=== PATIENT | male | born 1945 | race Caucasian/White ===

== ENCOUNTER 2017-01-13 16:55 | Inpatient (IN) | payer MEDICARE, MEDICAID ==
[~2017-01-13] VITALS: Ht 170.2 cm; Wt 65.8 kg
[~2017-01-13 16:55] MED LIST: AMBIEN5 MG ORAL; AMOXICILLIN125 MG ORAL; ATIVAN1 MG ORAL; B COMPLETE1 EAC1 ORAL; COLACE100 MG ORAL; COLACE250 MG ORAL; CRANBERRY TABL1 EACH PO; CYMBALTA30 MG ORAL; FOLIC ACID1 MG ORAL; HEPARIN SO5000 UNIT2 SUBQ; KEPPRA500 MG ORAL; LACTULOSE20 GM/301 ORAL; METHADONE HCL10 MG PO; MILK OF MA400 MG/51 ORAL; MIRALAX17 G2 ORAL; MOM30 ML ORAL; MULTI-VITAMIN1 EACH PO; MYLANTA30 M1 GT; MYLANTA30 M1 ORAL; NKM; NORCO 10-325 T1 EACH ORAL; NORCO 5-325 TA1 EACH ORAL; POLYSPORIN O1 APPLI1 TOPIC; PROTONIX40 MG ORAL; RANITIDINE HCL150 MG ORAL; RANITIDINE50 MG/2 ML PO; RESTORIL15 MG ORAL; TYLENOL325 MG ORAL; TYLENOL650 MG/20. ORAL; UNOBMED; ZOFRAN4 M1 ORAL; [UNRECOGNIZED DRUG - OTHER] PO
[2017-01-13 16:58] VITALS: BP 125/78
[2017-01-13 18:01] LABS: ALANINE AMINOTRANSFERASE 58 U/L (3-41); ALBUMIN/GLOBULIN RATIO 0.9 (1.0-2.7); ANION GAP 10 (5-15); ASPARTATE AMINO TRANSFERASE 56 U/L (5-40); CALCIUM 9.2 mg/dL (8.6-10.2); CARBON DIOXIDE 27 mEQ/L (20-30); CHLORIDE 104 mEQ/L (98-107); CREATININE 0.7 mg/dL (0.7-1.2); GLOMERULAR FILTRATION RATE > 60 mL/min (>60); HEMOLYSIS 8; LIPASE 56 U/L (< 60); SODIUM 141 mEQ/L (135-145); TOTAL PROTEIN 8.2 g/dL (6.6-8.7)
[2017-01-13 18:03] LABS: MEAN CORPUSCULAR HEMOGLOBIN 34.8 PG (27.0-31.0); MEAN CORPUSCULAR HGB CONC 35.9 G/DL (32.0-36.0); MEAN CORPUSCULAR VOLUME 97 FL (80-99); PLATELET COUNT 78 K/UL (150-450); RED BLOOD COUNT 3.86 M/UL (4.70-6.10); RED CELL DISTRIBUTION WIDTH 11.6 % (11.6-14.8); WHITE BLOOD COUNT 3.5 K/UL (4.8-10.8)
[2017-01-13] MEDS ORDERED: Zolpidem 5mg tab ORAL PRN (18:30)
[2017-01-13] MEDS ORDERED: Miralax 17gm pkt ORAL PRN (18:30)
[2017-01-13] MEDS ORDERED: Morphine Sulfate 2mg/ml Inj IVP PRN (18:30)
[2017-01-13] MEDS ORDERED: Mylanta II UD 30ml ORAL PRN (18:30)
[2017-01-13 20:01] LABS: BAND NEUTROPHILS % (MANUAL) 2 % (0-8); BASOPHILS % (MANUAL) 1 % (0-2); EOSINOPHILS % (MANUAL) 2 % (0-3); LYMPHOCYTES % (MANUAL) 39 % (20-45); NEUTROPHILS % (MANUAL) 49 % (45-75); TOTAL CELLS COUNTED 100
[2017-01-13 20:02] LABS: ANISOCYTOSIS 1+; PLATELET ESTIMATE DECREASED; PLATELET MORPHOLOGY NORMAL
[2017-01-13 20:42] VITALS: BP 137/88
[2017-01-13] MEDS: Lactulose 20gm/30ml UDC ORAL SCH (21:00)
[2017-01-13] MEDS: Heparin 5000 units/ml inj SUBQ SCH (21:00)
--- NOTE | 2017-01-13 21:01 | Emergency Room Report ---
History of Present Illness General Chief Complaint: General Complaint Source: Medical Record, PMD Present Illness HPI Patient presents emergency department today complaining of generalized weakness and altered mental status. Patient apparently presented to the emergency department today with confusion at the alf and progressive combativeness. No other complaints are noted. Symptoms noted to be severe.No other modifying factors. No other associated signs and symptoms. No other complaints were noted. Patient is a poor historian unable to provide much history most of this history was obtained from EMS and primary care physician. Allergies: Coded Allergies: No Known Allergies (Verified , 08/24/12) Patient History Past Medical History: CHF, seizures, other - Encephalopathy Past Surgical History: none Pertinent Family History: none Social History: Denies: alcohol use, drug use, smoking Reviewed Nursing Documentation: PMH: Agreed, PSxH: Agreed Nursing Documentation-PMH Past Medical History: No History, Except For Hx Cardiac Problems: Yes - CHF Hx Cancer: No - per [facility] records Hx Gastrointestinal Problems: No - CIRRHOSIS Hx Neurological Problems: Yes - Encephalopathy, convulsions Hx Seizures: Yes Review of Systems All Other Systems: negative except mentioned in HPI Physical Exam Vital Signs Date Time Temp Pulse Resp B/P Pulse Ox O2 Delivery O2 Flow Rate FiO2 01/13/17 16:48 97.3 82 20 116/78 98 Room Air Sp02 EP Interpretation: reviewed, normal General Appearance: alert, moderate distress Head: atraumatic Eyes: bilateral eye normal inspection ENT: normal ENT inspection, normal voice, moist mucus membranes Neck: normal inspection, full range of motion, supple, no bony tend Respiratory: normal inspection, lungs clear, normal breath sounds, no respiratory distress, no retraction, no wheezing Cardiovascular #1: regular rate, rhythm, no edema Gastrointestinal: normal inspection, normal bowel sounds, non tender, soft, no guarding, no hernia Genitourinary: no CVA tenderness Musculoskeletal: normal inspection, back normal, normal range of motion Neurologic: normal inspection, alert, responsive, speech normal Psychiatric: anxious Skin: normal inspection, normal color, no rash Medical Decision Making Diagnostic Impression: Primary Impression: Altered mental status ER Course Patient presents emergency department today with bizarre behavior altered mental status. Differential diagnoses include acute infectious process electrolyte abnormality aggressive behavior just to name a few.Given the severity of the patient's presentation I felt this is a highly complex patient. This patient required extensive workup. Patient laboratory workup was not impressive. However given patient's presentation I felt the patient require admission to the hospital. Case was discussed in detail with Dr. Saavedra who knows the patient patient will be admitted to his service for further treatment. Labs Test 01/13/17 17:26 White Blood Count 3.5 K/UL (4.8-10.8) Red Blood Count 3.86 M/UL (4.70-6.10) Hemoglobin 13.4 G/DL (14.2-18.0) Hematocrit 37.5 % (42.0-52.0) Mean Corpuscular Volume 97 FL (80-99) Mean Corpuscular Hemoglobin 34.8 PG (27.0-31.0) Mean Corpuscular Hemoglobin Concent 35.9 G/DL (32.0-36.0) Red Cell Distribution Width 11.6 % (11.6-14.8) Platelet Count 78 K/UL (150-450) Mean Platelet Volume 8.0 FL (6.5-10.1) Neutrophils (%) (Auto) % (45.0-75.0) Lymphocytes (%) (Auto) % (20.0-45.0) Monocytes (%) (Auto) % (1.0-10.0) Eosinophils (%) (Auto) % (0.0-3.0) Basophils (%) (Auto) % (0.0-2.0) Differential Total Cells Counted 100 Neutrophils % (Manual) 49 % (45-75) Lymphocytes % (Manual) 39 % (20-45) Monocytes % (Manual) 7 % (1-10) Eosinophils % (Manual) 2 % (0-3) Basophils % (Manual) 1 % (0-2) Band Neutrophils 2 % (0-8) Platelet Estimate Decreased Platelet Morphology Normal Anisocytosis 1+ Sodium Level 141 mEQ/L (135-145) Potassium Level 4.0 mEQ/L (3.4-4.9) Chloride Level 104 mEQ/L (98-107) Carbon Dioxide Level 27 mEQ/L (20-30) Anion Gap 10 (5-15) Blood Urea Nitrogen 21 mg/dL (7-23) Creatinine 0.7 mg/dL (0.7-1.2) Estimat Glomerular Filtration Rate > 60 mL/min (>60) Glucose Level 96 mg/dL (74-106) Calcium Level 9.2 mg/dL (8.6-10.2) Total Bilirubin 0.4 mg/dL (0.0-1.2) Aspartate Amino Transf (AST/SGOT) 56 U/L (5-40) Alanine Aminotransferase (ALT/SGPT) 58 U/L (3-41) Alkaline Phosphatase 68 U/L (40-129) Total Protein 8.2 g/dL (6.6-8.7) Albumin 3.9 g/dL (3.5-5.2) Globulin 4.3 g/dL Albumin/Globulin Ratio 0.9 (1.0-2.7) Lipase 56 U/L (< 60) Last Vital Signs Date Time Temp Pulse Resp B/P Pulse Ox O2 Delivery O2 Flow Rate FiO2 01/13/17 20:43 80 15 137/88 100 Room Air 01/13/17 20:42 97.8 Status: improved Disposition: ADMITTED INPATIENT Condition: Serious Referrals: JEFF SAAVEDRA (PCP) QUAN BERRY M.D. Jan 13, 2017 21:01
--- NOTE | 2017-01-13 22:15 | History and Physical ---
History of Present Illness General Date patient seen: Jan 13, 2017 Reason for Hospitalization: General Complaint Present Illness HPI 71 year old male with hx of Hepaitis C, cirrhosis, Dementia, psychosis, cachectic, prison resident, brought in by paramedics for CC of combative and agrresive, behavior. Pt is a poor historian and doesn't provide any history. Allergies: Coded Allergies: No Known Allergies (Verified , 08/24/12) Medication History Scheduled Cranberry Conc/C/Bacill Coag (Cranberry Tablet), 2 EACH PO DAILY, (Reported) Docusate Sodium (Docusate Sodium), 250 MG ORAL DAILY, (Reported) Duloxetine Hcl* (Cymbalta*), 30 MG ORAL DAILY, (Reported) Folic Acid* (Folic Acid*), 1 MG ORAL DAILY, (Reported) Heparin Sod (Porcine) (Heparin Sodium*), 5,000 UNITS SUBQ EVERY 12 HOURS, ( Reported) Lactulose (Lactulose*), 30 ML ORAL EVERY 12 HOURS, (Reported) Levetiracetam (Keppra), 500 MG ORAL EVERY 12 HOURS, (Reported) Multivitamin (Multi-Vitamin Daily), 1 EACH PO DAILY, (Reported) Ranitidine Hcl* (Ranitidine Hcl*), 150 MG PO DAILY, (Reported) Vitamin B Complex (B Complete), 100 MG ORAL DAILY, (Reported) Scheduled PRN Acetaminophen (Tylenol), 650 MG ORAL Q6H PRN for For Pain, (Reported) Al Hydroxide/mg Hydroxide (Mag-Al Liquid), 30 ML ORAL Q6HR PRN for Abdominal cramps, (Reported) Hydrocodone Bit/Acetaminophen 10-325* ([place] 10-325*), 1 TAB ORAL Q4H PRN for For Pain, (Reported) Magnesium Hydroxide (Milk of Magnesia), 30 ML ORAL HS PRN for Constipation, ( Reported) Methadone Hcl* (Methadone*), 10 MG PO EVERY 8 HOURS PRN for For Pain, (Reported) Ondansetron (Zofran), 4 MG ORAL Q6H PRN for Nausea & Vomiting, (Reported) Polyethylene Glycol 3350* (Miralax*), 17 GM ORAL QHS PRN for Constipation, ( Reported) Zolpidem Tartrate* (Ambien*), 5 MG ORAL BEDTIME PRN for Insomnia, (Reported) Patient History Healthcare decision maker Resuscitation status Advanced Directive on File Past Medical/Surgical History Past Medical/Surgical History: (1) Agitated (2) Elevated LFTs (3) Anemia Review of Systems All Other Systems: negative except mentioned in HPI Physical Exam General Appearance: cachetic Lines, tubes and drains: peripheral, PICC HEENT: normocephalic, atraumatic Neck: non-tender, normal alignment Respiratory/Chest: chest wall non-tender, lungs clear Cardiovascular/Chest: normal peripheral pulses, normal rate, regular rhythm Last 24 Hour Vital Signs Date Time Temp Pulse Resp B/P Pulse Ox O2 Delivery O2 Flow Rate FiO2 01/13/17 20:43 80 15 137/88 100 Room Air 01/13/17 20:42 97.8 80 15 137/88 100 Room Air 01/13/17 16:58 98.2 73 21 125/78 97 Room Air 01/13/17 16:48 97.3 82 20 116/78 98 Room Air Laboratory Tests Test 01/13/17 17:26 White Blood Count 3.5 K/UL (4.8-10.8) L Red Blood Count 3.86 M/UL (4.70-6.10) L Hemoglobin 13.4 G/DL (14.2-18.0) L Hematocrit 37.5 % (42.0-52.0) L Mean Corpuscular Volume 97 FL (80-99) Mean Corpuscular Hemoglobin 34.8 PG (27.0-31.0) H Mean Corpuscular Hemoglobin Concent 35.9 G/DL (32.0-36.0) Red Cell Distribution Width 11.6 % (11.6-14.8) Platelet Count 78 K/UL (150-450) L Mean Platelet Volume 8.0 FL (6.5-10.1) Neutrophils (%) (Auto) % (45.0-75.0) Lymphocytes (%) (Auto) % (20.0-45.0) Monocytes (%) (Auto) % (1.0-10.0) Eosinophils (%) (Auto) % (0.0-3.0) Basophils (%) (Auto) % (0.0-2.0) Differential Total Cells Counted 100 Neutrophils % (Manual) 49 % (45-75) Lymphocytes % (Manual) 39 % (20-45) Monocytes % (Manual) 7 % (1-10) Eosinophils % (Manual) 2 % (0-3) Basophils % (Manual) 1 % (0-2) Band Neutrophils 2 % (0-8) Platelet Estimate Decreased L Platelet Morphology Normal Anisocytosis 1+ Sodium Level 141 mEQ/L (135-145) Potassium Level 4.0 mEQ/L (3.4-4.9) Chloride Level 104 mEQ/L (98-107) Carbon Dioxide Level 27 mEQ/L (20-30) Anion Gap 10 (5-15) Blood Urea Nitrogen 21 mg/dL (7-23) Creatinine 0.7 mg/dL (0.7-1.2) Estimat Glomerular Filtration Rate > 60 mL/min (>60) Glucose Level 96 mg/dL (74-106) Calcium Level 9.2 mg/dL (8.6-10.2) Total Bilirubin 0.4 mg/dL (0.0-1.2) Aspartate Amino Transf (AST/SGOT) 56 U/L (5-40) H Alanine Aminotransferase (ALT/SGPT) 58 U/L (3-41) H Alkaline Phosphatase 68 U/L (40-129) Total Protein 8.2 g/dL (6.6-8.7) Albumin 3.9 g/dL (3.5-5.2) Globulin 4.3 g/dL Albumin/Globulin Ratio 0.9 (1.0-2.7) L Lipase 56 U/L (< 60) Height (Feet): 5 Height (Inches): 7.00 Weight (Pounds): 145 Medications Current Medications Medications (Trade) Dose Ordered Sig/Darinel Route PRN Reason Start Time Stop Time Status Last Admin Dose Admin Acetaminophen (Tylenol) 650 mg Q4H PRN ORAL fever 01/13/17 18:30 02/12/17 18:29 Acetaminophen/ Hydrocodone Bitart ([place] 10/325) 1 ea Q4H PRN ORAL For Pain 01/13/17 18:30 01/20/17 18:29 UNV Al Hydroxide/Mg Hydroxide (Mylanta II) 30 ml Q6H PRN ORAL dyspepsia 01/13/17 18:30 02/12/17 18:29 Dextrose (Dextrose 50%) STAT PRN IV Hypoglycemia 01/13/17 18:30 02/12/17 18:29 Duloxetine HCl (Cymbalta) 30 mg DAILY ORAL 01/14/17 09:00 02/13/17 08:59 Heparin Sodium (Porcine) (Heparin 5000 units/ml) 5,000 units EVERY 12 HOURS SUBQ 01/13/17 21:00 02/12/17 20:59 Lactulose (Cephulac) 20 gm EVERY 12 HOURS ORAL 01/13/17 21:00 02/12/17 20:59 Levetiracetam (Keppra) 500 mg EVERY 12 HOURS ORAL 01/13/17 21:00 02/12/17 20:59 Lorazepam (Ativan 2mg/ml 1ml) 0.5 mg Q4H PRN IV For Anxiety 01/13/17 18:30 01/20/17 18:29 Methadone HCl (Methadone HCl) 10 mg EVERY 8 HOURS PRN ORAL For Pain 01/13/17 18:30 01/20/17 18:29 UNV Morphine Sulfate (Morphine Sulfate) 1 mg EVERY 4 HOURS PRN IVP For Pain 01/13/17 18:30 01/20/17 18:29 Ondansetron HCl (Zofran) 4 mg Q6H PRN IVP Nausea & Vomiting 01/13/17 18:30 02/12/17 18:29 Polyethylene Glycol (Miralax) 17 gm HSPRN PRN ORAL Constipation 01/13/17 18:30 02/12/17 18:29 Zolpidem Tartrate (Ambien) 5 mg HSPRN PRN ORAL Insomnia 01/13/17 18:30 02/12/17 18:29 Assessment/Plan Problem List: (1) Encephalopathy ICD Codes: G93.40 - Encephalopathy SNOMED: 95047247 (2) Altered mental status ICD Codes: R41.82 - Altered mental status SNOMED: 615152435 (3) Liver cirrhosis ICD Codes: K74.60 - Unspecified cirrhosis of liver SNOMED: 24038524 (4) Anemia ICD Codes: D64.9 - Anemia SNOMED: 471026759 (5) Seizure disorder, complex partial ICD Codes: G40.209 - Seizure disorder, complex partial SNOMED: 734364153 (6) Hepatitis C ICD Codes: B19.20 - Unspecified viral hepatitis C without hepatic coma SNOMED: 44578770 Assessment/Plan psych and neuro evaluation f/u liver enzymes pt/ot check ammonia level JEFF BROWN Jan 13, 2017 22:15
[2017-01-14] VITALS: BP 117/65
[2017-01-14] MEDS: LORazepam Inj 2mg/ml 1ml IV PRN ×2 (02:20→12:02)
[2017-01-14 04:00] VITALS: BP 131/84
[2017-01-14] MEDS ORDERED: Morphine Sulfate 2mg/ml Inj IVP PRN ×3 (07:00)
[2017-01-14] MEDS ORDERED: Norco 10mg/325mg tab ORAL PRN ×2 (07:00)
[2017-01-14 07:25] LABS: MEAN CORPUSCULAR HEMOGLOBIN 33.9 PG (27.0-31.0); MEAN CORPUSCULAR HGB CONC 34.7 G/DL (32.0-36.0); MEAN CORPUSCULAR VOLUME 98 FL (80-99); MEAN PLATELET VOLUME 8.2 FL (6.5-10.1); PLATELET COUNT 81 K/UL (150-450); RED BLOOD COUNT 3.68 M/UL (4.70-6.10); RED CELL DISTRIBUTION WIDTH 11.2 % (11.6-14.8); WHITE BLOOD COUNT 2.8 K/UL (4.8-10.8)
[2017-01-14 07:32] LABS: ALANINE AMINOTRANSFERASE 56 U/L (3-41); ALBUMIN/GLOBULIN RATIO 0.8 (1.0-2.7); ANION GAP 12 (5-15); ASPARTATE AMINO TRANSFERASE 52 U/L (5-40); CALCIUM 9.1 mg/dL (8.6-10.2); CARBON DIOXIDE 24 mEQ/L (20-30); CHLORIDE 105 mEQ/L (98-107); CHOLESTEROL 160 mg/dL (< 200); CHOLESTEROL/HDL RATIO 2.9 (3.3-4.4); CREATININE 0.6 mg/dL (0.7-1.2); GLOMERULAR FILTRATION RATE > 60 mL/min (>60); HEMOLYSIS 10; LDL CHOLESTEROL (CALC.) 80 mg/dL (60-99); POTASSIUM 3.6 mEQ/L (3.4-4.9); SODIUM 141 mEQ/L (135-145); TOTAL PROTEIN 7.9 g/dL (6.6-8.7)
[2017-01-14 08:00] VITALS: BP 113/74
[2017-01-14 08:12] LABS: HEMOGLOBIN A1C 4.7 % (< 6.0)
[2017-01-14] MEDS: Heparin 5000 units/ml inj SUBQ SCH ×2 (08:31→21:00)
[2017-01-14] MEDS: Lactulose 20gm/30ml UDC ORAL SCH ×3 (08:33→21:12)
[2017-01-14] MEDS: DULoxetine 30mg cap ORAL SCH (08:34)
[2017-01-14] MEDS: Norco 10mg/325mg tab ORAL PRN (08:34)
[2017-01-14 08:57] LABS: BAND NEUTROPHILS % (MANUAL) 2 % (0-8); EOSINOPHILS % (MANUAL) 1 % (0-3); LYMPHOCYTES % (MANUAL) 44 % (20-45); NEUTROPHILS % (MANUAL) 41 % (45-75); TOTAL CELLS COUNTED 100
[2017-01-14 08:58] LABS: BASOPHILS % (MANUAL) 0 % (0-2); PLATELET ESTIMATE DECREASED; PLATELET MORPHOLOGY NORMAL
[2017-01-14 12:00] VITALS: BP 111/65
[2017-01-14 16:00] VITALS: BP 135/75
[2017-01-14 20:00] VITALS: BP 114/74
--- NOTE | 2017-01-14 22:52 | Pulmonology Progress Note ---
Assessment/Plan Problems: (1) Pancytopenia (2) Encephalopathy (3) Altered mental status (4) Liver cirrhosis (5) Anemia (6) Seizure disorder, complex partial (7) Hepatitis C Assessment/Plan hem evaluation pt/ot psych evaluation pending tolerating diet Subjective ROS Limited/Unobtainable: No Constitutional: Reports: no symptoms HEENT: Repors: no symptoms Respiratory: Reports: no symptoms Cardiovascular: Reports: no symptoms Allergies: Coded Allergies: No Known Allergies (Verified , 08/24/12) Objective Last 24 Hour Vital Signs Date Time Temp Pulse Resp B/P Pulse Ox O2 Delivery O2 Flow Rate FiO2 01/14/17 20:00 97.7 83 20 114/74 97 Room Air 01/14/17 16:00 97.5 73 20 135/75 98 Room Air 01/14/17 12:00 96.8 82 20 111/65 97 Room Air 01/14/17 09:39 97.3 01/14/17 08:00 97.5 95 20 113/74 96 Room Air 01/14/17 04:00 97.3 85 19 131/84 97 Room Air 01/14/17 00:00 97.0 74 20 117/65 98 Room Air Intake and Output 01/13/17 01/14/17 19:00 07:00 Intake Total 0 ml Balance 0 ml Intake Oral 0 ml # Voids 2 # Bowel Movements 1 General Appearance: WD/WN, no acute distress HEENT: normocephalic, atraumatic Respiratory/Chest: chest wall non-tender, lungs clear Cardiovascular: normal peripheral pulses, normal rate Abdomen: normal bowel sounds, soft, non tender Genitourinary: normal external genitalia Extremities: no cyanosis Microbiology Date/Time Source Procedure Growth Status 01/14/17 02:30 Elbow Right Gram Stain - Final Resulted 01/14/17 02:30 Elbow Right Wound Culture Pending Resulted Laboratory Tests 01/14/17 06:00: White Blood Count 2.8L, Red Blood Count 3.68L, Hemoglobin 12.5L, Hematocrit 35.9L, Mean Corpuscular Volume 98, Mean Corpuscular Hemoglobin 33.9H, Mean Corpuscular Hemoglobin Concent 34.7, Red Cell Distribution Width 11.2L, Platelet Count 81L, Mean Platelet Volume 8.2, Neutrophils (%) (Auto) , Lymphocytes (%) (Auto) , Monocytes (%) (Auto) , Eosinophils (%) (Auto) , Basophils (%) (Auto) , Differential Total Cells Counted 100, Neutrophils % ( Manual) 41L, Lymphocytes % (Manual) 44, Monocytes % (Manual) 12H, Eosinophils % (Manual) 1, Basophils % (Manual) 0, Band Neutrophils 2, Platelet Estimate DecreasedL, Platelet Morphology Normal, Red Blood Cell Morphology Normal, Sodium Level 141, Potassium Level 3.6, Chloride Level 105, Carbon Dioxide Level 24, Anion Gap 12, Blood Urea Nitrogen 17, Creatinine 0.6L, Estimat Glomerular Filtration Rate > 60, Glucose Level 87, Hemoglobin A1c 4.7, Calcium Level 9.1, Total Bilirubin 0.6, Aspartate Amino Transf (AST/SGOT) 52H, Alanine Aminotransferase (ALT/SGPT) 56H, Alkaline Phosphatase 65, Total Protein 7.9, Albumin 3.7, Globulin 4.2, Albumin/Globulin Ratio 0.8L, Triglycerides Level 122 , Cholesterol Level 160, LDL Cholesterol 80, HDL Cholesterol 56, Cholesterol/ HDL Ratio 2.9L, Thyroid Stimulating Hormone (TSH) 2.890 Current Medications Medications (Trade) Dose Ordered Sig/Darinel Route PRN Reason Start Time Stop Time Status Last Admin Dose Admin Acetaminophen (Tylenol) 650 mg Q4H PRN ORAL fever 01/13/17 18:30 02/12/17 18:29 Acetaminophen/ Hydrocodone Bitart ([place] 10/325) 1 ea Q4H PRN ORAL Mild Pain (Pain Scale 1-3) 01/14/17 08:00 01/21/17 07:59 01/14/17 08:34 Al Hydroxide/Mg Hydroxide (Mylanta II) 30 ml Q6H PRN ORAL dyspepsia 01/13/17 18:30 02/12/17 18:29 Dextrose (Dextrose 50%) STAT PRN IV Hypoglycemia 01/13/17 18:30 02/12/17 18:29 Duloxetine HCl (Cymbalta) 30 mg DAILY ORAL 01/14/17 09:00 02/13/17 08:59 01/14/17 08:34 Heparin Sodium (Porcine) (Heparin 5000 units/ml) 5,000 units EVERY 12 HOURS SUBQ 01/13/17 21:00 02/12/17 20:59 Lactulose (Cephulac) 20 gm EVERY 12 HOURS ORAL 01/13/17 21:00 02/12/17 20:59 01/14/17 08:33 Levetiracetam (Keppra) 500 mg EVERY 12 HOURS ORAL 01/13/17 21:00 02/12/17 20:59 01/14/17 21:11 Lorazepam (Ativan 2mg/ml 1ml) 0.5 mg Q4H PRN IV For Anxiety 01/13/17 18:30 01/20/17 18:29 01/14/17 12:02 Methadone HCl (Methadone HCl) 10 mg Q8H PRN ORAL Moderate Pain (Pain Scale 4-6) 01/14/17 07:15 01/21/17 07:14 Morphine Sulfate (Morphine Sulfate) 1 mg Q4H PRN IVP Severe breakthrough pain 01/14/17 07:00 01/20/17 18:29 Ondansetron HCl (Zofran) 4 mg Q6H PRN IVP Nausea & Vomiting 01/13/17 18:30 02/12/17 18:29 Polyethylene Glycol (Miralax) 17 gm HSPRN PRN ORAL Constipation 01/13/17 18:30 02/12/17 18:29 Zolpidem Tartrate (Ambien) 5 mg HSPRN PRN ORAL Insomnia 01/13/17 18:30 02/12/17 18:29 JEFF BROWN Jan 14, 2017 22:52
[2017-01-15] VITALS: BP 107/64
[2017-01-15 04:00] VITALS: BP 110/72
[2017-01-15] MEDS: Norco 10mg/325mg tab ORAL PRN (07:56)
[2017-01-15] MEDS: DULoxetine 30mg cap ORAL SCH (07:56)
[2017-01-15] MEDS: Heparin 5000 units/ml inj SUBQ SCH ×2 (07:57→21:00)
[2017-01-15] MEDS: Lactulose 20gm/30ml UDC ORAL SCH ×2 (07:57→21:00)
[2017-01-15 08:00] VITALS: BP 117/77
[2017-01-15 08:51] LABS: MEAN CORPUSCULAR HEMOGLOBIN 32.6 PG (27.0-31.0); MEAN CORPUSCULAR HGB CONC 33.2 G/DL (32.0-36.0); MEAN CORPUSCULAR VOLUME 98 FL (80-99); MEAN PLATELET VOLUME 6.9 FL (6.5-10.1); PLATELET COUNT 73 K/UL (150-450); RED CELL DISTRIBUTION WIDTH 11.4 % (11.6-14.8); WHITE BLOOD COUNT 2.5 K/UL (4.8-10.8)
[2017-01-15 09:09] LABS: INR 1.1 (0.9-1.1); PROTHROMBIN TIME 11.2 SEC (9.30-11.50)
[2017-01-15 09:58] LABS: BAND NEUTROPHILS % (MANUAL) 2 % (0-8); BASOPHILS % (MANUAL) 0 % (0-2); EOSINOPHILS % (MANUAL) 1 % (0-3); LYMPHOCYTES % (MANUAL) 37 % (20-45); NEUTROPHILS % (MANUAL) 58 % (45-75); PLATELET ESTIMATE DECREASED; PLATELET MORPHOLOGY NORMAL; TOTAL CELLS COUNTED 100
[2017-01-15 10:12] LABS: ERYTHROCYTE SEDIMENTATION RATE 46 MM/HR (0-20)
[2017-01-15 10:29] LABS: PATH BLOOD SMEAR/OMC SENT TO PATHOLOGIST
[2017-01-15 12:00] VITALS: BP 122/76
--- NOTE | 2017-01-15 15:16 | Neurology Progress Note ---
Interim History Interim History ROS Limited/Unobtainable: No Objective Physical Exam Last Vital Signs Date Time Temp Pulse Resp B/P Pulse Ox O2 Delivery O2 Flow Rate FiO2 01/15/17 09:07 97.6 01/15/17 08:00 80 18 117/77 Room Air 01/15/17 04:00 97 Laboratory Tests Test 01/15/17 08:30 White Blood Count 2.5 K/UL (4.8-10.8) L Red Blood Count 4.00 M/UL (4.70-6.10) L Hemoglobin 13.1 G/DL (14.2-18.0) L Hematocrit 39.4 % (42.0-52.0) L Mean Corpuscular Volume 98 FL (80-99) Mean Corpuscular Hemoglobin 32.6 PG (27.0-31.0) H Mean Corpuscular Hemoglobin Concent 33.2 G/DL (32.0-36.0) Red Cell Distribution Width 11.4 % (11.6-14.8) L Platelet Count 73 K/UL (150-450) L Mean Platelet Volume 6.9 FL (6.5-10.1) Neutrophils (%) (Auto) % (45.0-75.0) Lymphocytes (%) (Auto) % (20.0-45.0) Monocytes (%) (Auto) % (1.0-10.0) Eosinophils (%) (Auto) % (0.0-3.0) Basophils (%) (Auto) % (0.0-2.0) Differential Total Cells Counted 100 Neutrophils % (Manual) 58 % (45-75) Lymphocytes % (Manual) 37 % (20-45) Monocytes % (Manual) 2 % (1-10) Eosinophils % (Manual) 1 % (0-3) Basophils % (Manual) 0 % (0-2) Band Neutrophils 2 % (0-8) Platelet Estimate Decreased L Platelet Morphology Normal Red Blood Cell Morphology Normal Erythrocyte Sedimentation Rate 46 MM/HR (0-20) H Reticulocyte Count 1.0 % (0.0-2.0) Prothrombin Time 11.2 SEC (9.30-11.50) Prothromb Time International Ratio 1.1 (0.9-1.1) Activated Partial Thromboplast Time 27 SEC (23-33) Iron Level 128 ug/dL (59-158) Total Iron Binding Capacity 263 ug/dL (250-400) Percent Iron Saturation 49 % (15-50) Unsaturated Iron Binding 135 ug/dL (112-346) Lactate Dehydrogenase 163 U/L (135-230) Carcinoembryonic Antigen 2.2 ng/mL Vitamin B12 Level 575 pg/mL (211-946) Folate Pending Impression/Recommendations Recommendations #[id number] LINDSAY WATSON Jan 15, 2017 15:16
--- NOTE | 2017-01-15 19:20 | Pulmonology Progress Note ---
Assessment/Plan Problems: (1) Pancytopenia (2) Encephalopathy (3) Altered mental status (4) Liver cirrhosis (5) Anemia (6) Seizure disorder, complex partial (7) Hepatitis C Assessment/Plan pt/ot psych evaluation pending tolerating diet dc planning Subjective ROS Limited/Unobtainable: No Constitutional: Reports: no symptoms HEENT: Repors: no symptoms Respiratory: Reports: no symptoms Allergies: Coded Allergies: No Known Allergies (Verified , 08/24/12) Objective Last 24 Hour Vital Signs Date Time Temp Pulse Resp B/P Pulse Ox O2 Delivery O2 Flow Rate FiO2 01/15/17 12:00 98.0 80 18 122/76 98 Room Air 01/15/17 09:07 97.6 01/15/17 08:00 97.6 80 18 117/77 Room Air 01/15/17 04:00 96.6 78 20 110/72 97 Room Air 01/15/17 00:00 97.7 82 20 107/64 97 Room Air 01/14/17 20:00 97.7 83 20 114/74 97 Room Air Intake and Output 01/14/17 01/15/17 19:00 07:00 Intake Total 700 ml 150 ml Balance 700 ml 150 ml Intake Oral 700 ml 150 ml # Voids 3 3 # Bowel Movements 1 General Appearance: cachetic HEENT: normocephalic, atraumatic Respiratory/Chest: chest wall non-tender, lungs clear Cardiovascular: normal peripheral pulses, normal rate Abdomen: normal bowel sounds, soft, non tender Genitourinary: normal external genitalia Extremities: no clubbing Microbiology Date/Time Source Procedure Growth Status 01/14/17 02:30 Elbow Right Gram Stain - Final Resulted 01/14/17 02:30 Elbow Right Wound Culture - Preliminary NO GROWTH AFTER 24 HOURS Resulted Laboratory Tests 01/15/17 08:30: White Blood Count 2.5L, Red Blood Count 4.00L, Hemoglobin 13.1L, Hematocrit 39.4L, Mean Corpuscular Volume 98, Mean Corpuscular Hemoglobin 32.6H, Mean Corpuscular Hemoglobin Concent 33.2, Red Cell Distribution Width 11.4L, Platelet Count 73L, Mean Platelet Volume 6.9, Neutrophils (%) (Auto) , Lymphocytes (%) (Auto) , Monocytes (%) (Auto) , Eosinophils (%) (Auto) , Basophils (%) (Auto) , Differential Total Cells Counted 100, Neutrophils % ( Manual) 58, Lymphocytes % (Manual) 37, Monocytes % (Manual) 2, Eosinophils % ( Manual) 1, Basophils % (Manual) 0, Band Neutrophils 2, Platelet Estimate DecreasedL, Platelet Morphology Normal, Red Blood Cell Morphology Normal, Erythrocyte Sedimentation Rate 46H, Reticulocyte Count 1.0, Prothrombin Time 11.2, Prothromb Time International Ratio 1.1, Activated Partial Thromboplast Time 27, Iron Level 128, Total Iron Binding Capacity 263, Percent Iron Saturation 49, Unsaturated Iron Binding 135, Lactate Dehydrogenase 163, Carcinoembryonic Antigen 2.2, Vitamin B12 Level 575, Folate [Pending] 01/15/17 16:55: Ammonia 42, Vitamin D 25-Hydroxy [Pending], 25-Hydroxy Vitamin D2 [Pending], 25- Hydroxy Vitamin D3 [Pending], Alpha-Tocopherol Level [Pending], Anti-Nuclear Antibody Screen [Pending] Current Medications Medications (Trade) Dose Ordered Sig/Darinel Route PRN Reason Start Time Stop Time Status Last Admin Dose Admin Acetaminophen (Tylenol) 650 mg Q4H PRN ORAL fever 01/13/17 18:30 02/12/17 18:29 Acetaminophen/ Hydrocodone Bitart ([place] 10/325) 1 ea Q4H PRN ORAL Mild Pain (Pain Scale 1-3) 01/14/17 08:00 01/21/17 07:59 01/15/17 07:56 Al Hydroxide/Mg Hydroxide (Mylanta II) 30 ml Q6H PRN ORAL dyspepsia 01/13/17 18:30 02/12/17 18:29 Dextrose (Dextrose 50%) STAT PRN IV Hypoglycemia 01/13/17 18:30 02/12/17 18:29 Duloxetine HCl (Cymbalta) 30 mg DAILY ORAL 01/14/17 09:00 02/13/17 08:59 01/15/17 07:56 Escitalopram Oxalate (Lexapro) 10 mg DAILY ORAL 01/16/17 09:00 02/15/17 08:59 Heparin Sodium (Porcine) (Heparin 5000 units/ml) 5,000 units EVERY 12 HOURS SUBQ 01/13/17 21:00 02/12/17 20:59 Lactulose (Cephulac) 20 gm EVERY 12 HOURS ORAL 01/13/17 21:00 02/12/17 20:59 01/15/17 07:57 Levetiracetam (Keppra) 500 mg EVERY 12 HOURS ORAL 01/13/17 21:00 02/12/17 20:59 01/15/17 07:57 Lorazepam (Ativan 2mg/ml 1ml) 0.5 mg Q4H PRN IV For Anxiety 01/13/17 18:30 01/20/17 18:29 01/14/17 12:02 Methadone HCl (Methadone HCl) 10 mg Q8H PRN ORAL Moderate Pain (Pain Scale 4-6) 01/14/17 07:15 01/21/17 07:14 Mirtazapine (Remeron) 7.5 mg QHS ORAL 01/15/17 21:00 02/14/17 20:59 Morphine Sulfate (Morphine Sulfate) 1 mg Q4H PRN IVP Severe breakthrough pain 01/14/17 07:00 01/20/17 18:29 Ondansetron HCl (Zofran) 4 mg Q6H PRN IVP Nausea & Vomiting 01/13/17 18:30 02/12/17 18:29 Polyethylene Glycol (Miralax) 17 gm HSPRN PRN ORAL Constipation 01/13/17 18:30 02/12/17 18:29 Zolpidem Tartrate (Ambien) 5 mg HSPRN PRN ORAL Insomnia 01/13/17 18:30 02/12/17 18:29 JEFF BROWN Jan 15, 2017 19:20
[2017-01-15 22:20] LABS: APPEARANCE,URINE CLEAR; KETONES,URINE NEGATIVE (NEGATIVE); LEUKOCYTE ESTERASE ,URINE 1+ (NEGATIVE); NITRITE,URINE NEGATIVE (NEGATIVE); PH,URINE 6.5 (4.5-8.0); PROTEIN,URINE NEGATIVE (NEGATIVE); UROBILINOGEN,URINE 8 MG/DL (0.0-1.0)
[2017-01-15 22:23] LABS: ICTOTEST POSITIVE
[2017-01-15 22:24] LABS: RBC,URINE 0-2 /HPF (0 - 0); WBC,URINE 0-2 /HPF (0 - 0)
[2017-01-15 22:25] LABS: MUCUS,URINE MODERATE /LPF (NONE/OCC)
--- NOTE | 2017-01-15 22:45 | Consultation ---
DATE OF CONSULTATION: HISTORY OF PRESENT ILLNESS: This is a 71-year-old man with a history of alcohol dependence, hepatitis C, cirrhosis, psychotic disorder, and dementia, who has been admitted to the hospital for medical stabilization for treatment. Psychiatry was consulted as the patient has been combative and he has been easily agitated. During the evaluation, the patient was confused. He knew his name and he thought we are in 2011 and did not know the date. He did not know the city he is in. He knew that he was in the hospital. After prompting, he was able to remember the name of the hospital. He has impairment of cognition, memory, and attention. PAST PSYCHIATRIC HISTORY: The patient has been diagnosed with depression and has been started on Cymbalta. No suicide attempt in the past. PAST MEDICAL HISTORY: Cirrhosis, dementia, dysphagia, diarrhea, thrombocytopenia, and hepatitis C. ALLERGIES: No known drug allergies. SUBSTANCE ABUSE HISTORY: Significant for alcohol, however, he has been abstinent from alcohol, unknown for how many years. MENTAL STATUS EXAMINATION: The patient is alert and oriented times self. Mood was irritable. Affect is constricted. Congruent with mood. Thought process is concrete. Thought content, there is no suicidal or homicidal ideations. ASSESSMENT: [place] I Alcohol dependence, in full sustained remission, major depressive disorder, and cognitive impairment. [place] II Deferred. [place] III Hepatitic C. [place] IV Low. [place] V Global assessment of function is 25. PLAN: 1. The patient will be started on 7.5 mg of Remeron. 2. Lexapro 10 mg in the morning. 3. We will continue to follow and readjust the medication. Mikayla Wilkes M.D. DR: LIONEL JOB#: [id number] CC:
[2017-01-16] VITALS: BP 129/82
--- NOTE | 2017-01-16 01:30 | Consultation ---
DATE OF CONSULTATION: 01/15/2017 NEUROLOGIC CONSULTATION CONSULTING PHYSICIAN: Juan R Gonzalez M.D. REQUESTING PHYSICIAN: Pradeep Saavedra M.D. HISTORY OF PRESENT ILLNESS: This is a 71-year-old man, seen in neurological consultation to evaluate progressive generalized weakness, inability to ambulate, but also confusion and behavioral abnormalities. The patient is a resident of nursing facility where he was described as being very combative and confused. Upon arrival to the emergency room, his vital signs were stable. He was afebrile. His initial diagnostic studies included CBC with mild anemia, hemoglobin 13.4, hematocrit 37.5, WBC down to 3.5, and platelets of 78,000. Coagulation panel was normal. Chemistry panel unremarkable except slightly elevated liver enzymes with AST 56 and ALT 58. Normal B12, TSH, and lipid panel. Imaging studies still pending. The treatment prior to admission included Tylenol, but also Cymbalta 30 mg daily, folate, Lane p.r.n., lactulose, Keppra 500 mg b.i.d., magnesium oxide, methadone q.8, ondansetron, ranitidine, vitamin B complex, and zolpidem. The patient has a hearing loss and has a history of seizures 35 to 40 years ago with no recurrences according to the patient. He was maintained on anticonvulsants. PAST MEDICAL HISTORY: The patient has a history of dementia with psychotic behavior, history of hepatitis C, and liver cirrhosis. SOCIAL HISTORY: Resident of nursing facility. The patient indicated in the past he was abusing alcohol or drugs. REVIEW OF SYSTEMS: The patient is a poor historian, indicating that he is fine and he feels "still alive." PHYSICAL EXAMINATION: GENERAL: Well developed, somewhat cachectic appearing male, found to be asleep but easily arousable. VITAL SIGNS: Vital signs were stable. Blood pressure 117/77, pulse rate is 76. HEENT: Head is normocephalic. There is no evidence of injury. Eyes, ears, and throat are clear. NECK: Rigid in all directions. MUSCULOSKELETAL: No deformities. Peripheral pulses 1+ symmetric. MENTAL STATUS: The patient now is alert and oriented to his name, date of age, but stated that he is 48 years old. He was able to spell his last name, follows simple commands, but displayed inappropriate affect, at times imitating that he is boxing. His attention span was poor, unable to recall three out of three words in 3 minutes. Appears somewhat aggressive, although without behavioral abnormalities. We attempted to get him out from the bed. He was stating that he is unable to walk because of the knee pain. CRANIAL NERVE II: Pupils both responding to light and accommodation. Extraocular movement intact. No nystagmus. CRANIAL NERVE V: Normal corneal responses. CRANIAL NERVE VII: No facial asymmetry. CRANIAL NERVE VIII: Decreased hearing. CRANIAL NERVES IX THROUGH XII: Tongue is in midline. Symmetric palate elevation. MOTOR EXAMINATION: Revealed normal muscle tone. Able to move arms and legs against the gravity. Deep reflexes 1+ symmetric with downgoing toes both sides. SENSORY EXAMINATION: Withdrawing to pin stimulation all limbs. GAIT: Not tested. The patient was refusing. IMPRESSION: This is a 71-year-old man with evidence of cognitive loss, confusion, disorientation, and behavioral abnormalities. Rule out burn encephalopathy, rule out early onset of senile dementia. 1. Senile dementia. 2. Hepatitis C with liver cirrhosis. 3. Pancytopenia. 4. History of seizure disorder, well controlled. 5. Degenerative joint disease. RECOMMENDATION: 1. Get a baseline CT of the brain. 2. Check ammonia level, B12, vitamin D, and CYNDI . 3. PT/OT mobility protocol. 4. Discussed the patient's status with Psychiatry. Thank you for allowing me to see this interesting patient in neurological consultation. Juan R Gonzalez M.D. DR: BRANDY JOB#: [id number] CC:
--- NOTE | 2017-01-16 07:43 | Pulmonology Progress Note ---
Assessment/Plan Assessment/Plan ASSESSMENT acute encephalopathy on chronic senile dementia liver cirrhosis Hepatitis C Pancytopenia ( likyl due to liver disease) Seizure disorder Degenerative joint disease. Alcohol dependence, in full remission, Major depressive disorder Cognitive impairment. PLAN OF CARE MS floor neuro and psych follow CT head as per neuro ammonia level WNL CYNDI screen negative seizure precautions, continue Keppa trend LFT abdominal US pain management PT/OT monitor HH, at baseline, anemia workup with stable iron, B 12 level, likely anemia of chronic disease psych added antidepressive, monitor DVT prophylaxis case discussed and evaluated by supervising physician Subjective Allergies: Coded Allergies: No Known Allergies (Verified , 08/24/12) Subjective not engaged in conversation, unable to obtain any info from patient no signs of distress Objective Last 24 Hour Vital Signs Date Time Temp Pulse Resp B/P Pulse Ox O2 Delivery O2 Flow Rate FiO2 01/16/17 00:00 98.1 89 20 129/82 95 Room Air 01/15/17 12:00 98.0 80 18 122/76 98 Room Air 01/15/17 09:07 97.6 01/15/17 08:00 97.6 80 18 117/77 Room Air Intake and Output 01/15/17 01/16/17 19:00 07:00 Intake Total 320 ml 120 ml Balance 320 ml 120 ml Intake Oral 320 ml 120 ml # Voids 6 2 Objective General Appearance: no acute distress HEENT: normocephalic, atraumatic, anicteric, mucous membranes moist Respiratory/Chest: lungs clear, no respiratory distress Cardiovascular: normal peripheral pulses, normal rate, no JVD Abdomen: normal bowel sounds, soft, non tender, non distended Extremities: no edema, pedal pulses normal Neurologic/Psychiatric: abnormal gait, alert - no eye contact, verbal, but not engaging in conversation Microbiology Date/Time Source Procedure Growth Status 01/14/17 02:30 Elbow Right Gram Stain - Final Resulted 01/14/17 02:30 Elbow Right Wound Culture - Preliminary NO GROWTH AFTER 24 HOURS Resulted Laboratory Tests 01/15/17 08:30: White Blood Count 2.5L, Red Blood Count 4.00L, Hemoglobin 13.1L, Hematocrit 39.4L, Mean Corpuscular Volume 98, Mean Corpuscular Hemoglobin 32.6H, Mean Corpuscular Hemoglobin Concent 33.2, Red Cell Distribution Width 11.4L, Platelet Count 73L, Mean Platelet Volume 6.9, Neutrophils (%) (Auto) , Lymphocytes (%) (Auto) , Monocytes (%) (Auto) , Eosinophils (%) (Auto) , Basophils (%) (Auto) , Differential Total Cells Counted 100, Neutrophils % ( Manual) 58, Lymphocytes % (Manual) 37, Monocytes % (Manual) 2, Eosinophils % ( Manual) 1, Basophils % (Manual) 0, Band Neutrophils 2, Platelet Estimate DecreasedL, Platelet Morphology Normal, Red Blood Cell Morphology Normal, Erythrocyte Sedimentation Rate 46H, Reticulocyte Count 1.0, Prothrombin Time 11.2, Prothromb Time International Ratio 1.1, Activated Partial Thromboplast Time 27, Iron Level 128, Total Iron Binding Capacity 263, Percent Iron Saturation 49, Unsaturated Iron Binding 135, Lactate Dehydrogenase 163, Carcinoembryonic Antigen 2.2, Vitamin B12 Level 575, Folate [Pending] 01/15/17 16:55: Ammonia 42, Vitamin D 25-Hydroxy [Pending], 25-Hydroxy Vitamin D2 [Pending], 25- Hydroxy Vitamin D3 [Pending], Alpha-Tocopherol Level [Pending], Anti-Nuclear Antibody Screen [Pending] 01/15/17 21:00: Urine Color Brown, Urine Appearance Clear, Urine pH 6.5, Urine Specific [place] 1.015, Urine Protein Negative, Urine Glucose (UA) Negative, Urine Ketones Negative, Urine Occult Blood Negative, Urine Nitrite Negative, Urine Bilirubin 1 +H, Urine Ictotest Positive, Urine Urobilinogen 8H, Urine Leukocyte Esterase 1+H , Urine RBC 0-2H, Urine WBC 0-2, Urine Squamous Epithelial Cells None, Urine Bacteria None, Urine Mucus ModerateH Current Medications Medications (Trade) Dose Ordered Sig/Darinel Route PRN Reason Start Time Stop Time Status Last Admin Dose Admin Acetaminophen (Tylenol) 650 mg Q4H PRN ORAL fever 01/13/17 18:30 02/12/17 18:29 Acetaminophen/ Hydrocodone Bitart ([place] 10/325) 1 ea Q4H PRN ORAL Mild Pain (Pain Scale 1-3) 01/14/17 08:00 01/21/17 07:59 01/15/17 07:56 Al Hydroxide/Mg Hydroxide (Mylanta II) 30 ml Q6H PRN ORAL dyspepsia 01/13/17 18:30 02/12/17 18:29 Dextrose (Dextrose 50%) STAT PRN IV Hypoglycemia 01/13/17 18:30 02/12/17 18:29 Duloxetine HCl (Cymbalta) 30 mg DAILY ORAL 01/14/17 09:00 02/13/17 08:59 01/15/17 07:56 Escitalopram Oxalate (Lexapro) 10 mg DAILY ORAL 01/16/17 09:00 02/15/17 08:59 Heparin Sodium (Porcine) (Heparin 5000 units/ml) 5,000 units EVERY 12 HOURS SUBQ 01/13/17 21:00 02/12/17 20:59 Lactulose (Cephulac) 20 gm EVERY 12 HOURS ORAL 01/13/17 21:00 02/12/17 20:59 01/15/17 07:57 Levetiracetam (Keppra) 500 mg EVERY 12 HOURS ORAL 01/13/17 21:00 02/12/17 20:59 01/15/17 07:57 Lorazepam (Ativan 2mg/ml 1ml) 0.5 mg Q4H PRN IV For Anxiety 01/13/17 18:30 01/20/17 18:29 01/14/17 12:02 Methadone HCl (Methadone HCl) 10 mg Q8H PRN ORAL Moderate Pain (Pain Scale 4-6) 01/14/17 07:15 01/21/17 07:14 Mirtazapine (Remeron) 7.5 mg QHS ORAL 01/15/17 21:00 02/14/17 20:59 Morphine Sulfate (Morphine Sulfate) 1 mg Q4H PRN IVP Severe breakthrough pain 01/14/17 07:00 01/20/17 18:29 Ondansetron HCl (Zofran) 4 mg Q6H PRN IVP Nausea & Vomiting 01/13/17 18:30 02/12/17 18:29 Polyethylene Glycol (Miralax) 17 gm HSPRN PRN ORAL Constipation 01/13/17 18:30 02/12/17 18:29 Zolpidem Tartrate (Ambien) 5 mg HSPRN PRN ORAL Insomnia 01/13/17 18:30 02/12/17 18:29 Benigno CastanedaPhyllis cota NP Jan 16, 2017 07:43
[2017-01-16 08:08] VITALS: BP 119/75
[2017-01-16] MEDS: Heparin 5000 units/ml inj SUBQ SCH ×2 (09:00→21:00)
[2017-01-16] MEDS: DULoxetine 30mg cap ORAL SCH (10:00)
[2017-01-16] MEDS: Lactulose 20gm/30ml UDC ORAL SCH ×2 (10:02→22:31)
[2017-01-16 11:54] VITALS: BP 114/69
[2017-01-16 11:57] LABS: APPEARANCE,URINE CLEAR; KETONES,URINE NEGATIVE (NEGATIVE); LEUKOCYTE ESTERASE ,URINE NEGATIVE (NEGATIVE); NITRITE,URINE NEGATIVE (NEGATIVE); PH,URINE 6.5 (4.5-8.0); PROTEIN,URINE NEGATIVE (NEGATIVE); UROBILINOGEN,URINE 12 MG/DL (0.0-1.0)
[2017-01-16 12:07] LABS: BACTERIA,URINE OCCASIONAL /HPF; ICTOTEST NEGATIVE; SQUAMOUS EPITHELIAL CELL,UR OCCASIONAL /LPF (NONE/OCC); WBC,URINE 0-2 /HPF (0 - 0)
[2017-01-16 15:51] VITALS: BP 115/75
--- NOTE | 2017-01-16 17:30 | Consultation ---
DATE OF CONSULTATION: 01/15/2017 HEMATOLOGY/ONCOLOGY CONSULTATION CONSULTING PHYSICIAN: Reyes Armas M.D. REQUESTING PHYSICIAN: Pradeep Saavedra M.D. REASON FOR CONSULTATION: Evaluation of pancytopenia. IDENTIFICATION DATA: Dear Dr. Saavedra, Thank you very much for this consultation. The patient is a pleasant 71-year-old male with a past medical history significant for cirrhosis, hepatitis C, dementia, history of psychosis, and cachexia. He is a [facility] patient, brought in by paramedics due to combative state, aggressive . He is a poor historian and unable to provide further history. Hematology service consulted given pancytopenia. PAST MEDICAL HISTORY: As noted above. PAST SURGICAL HISTORY: None reported. MEDICATIONS: Cranberry juice, fluoxetine, lactulose, Keppra, multivitamin, vitamin B-complex. ALLERGIES: No known drug allergies. REVIEW OF SYSTEMS: Difficult to obtain. PHYSICAL EXAMINATION: VITAL SIGNS: Temperature is 98 degrees Fahrenheit, pulse of 83, respiratory rate 12, and blood pressure 137/80. GENERAL: No acute distress. PULMONARY: Decreased breath sounds. CARDIOVASCULAR: Regular rate. No S3 or S4. ABDOMEN: Soft and nontender. EXTREMITIES: There is 1+ edema. LABORATORY DATA: WBC 3.5, hemoglobin 13.3, hematocrit 38, and platelet count 80,000 IMAGING: Imaging of abdomen and pelvis three years ago shows splenomegaly, left-sided hiatal hernia, decompression . ASSESSMENT AND PLAN: 1. Pancytopenia, likely secondary to underlying liver cirrhosis and splenomegaly. 2. Anemia secondary to chronic disease. Continue to closely monitor. 3. Leukopenia, likely secondary to splenomegaly. 4. History of hepatitis C with cirrhosis. 5. History of 02:23. 6. Encephalopathy. 7. Seizure disorder, complex, partial. 8. Discussed with staff. Reyes Armas M.D. DR: SHAY JOB#: [id number] CC:
[2017-01-16] MEDS ORDERED: MIRTAZAPINE15 M3 ORAL (18:23)
[2017-01-16 20:00] VITALS: BP 116/72
--- NOTE | 2017-01-16 22:45 | Progress Note ---
DATE: 01/16/2017 SUBJECTIVE: The patient is still confused, however, more cooperative. No behavior issues. The patient is not engaged. The patient is calm. Overnight, no behavior issues and there has been less agitation. MENTAL STATUS EXAMINATION: The patient is alert, oriented times self. Mood is neutral. Affect is flat. Congruent with mood. Thought process, there is paucity of thought content. Thought content, positive for delusions. Insight and judgment are impaired. Cognition is impaired. ASSESSMENT: 1. Alcoholic dementia. 2. Depression. 3. Agitation. PLAN: The patient will be continued on current medication. No medication changes. Mikayla Wilkes M.D. DR: Matias JOB#: [id number] CC:
[2017-01-17] MEDS: LORazepam Inj 2mg/ml 1ml IV PRN (01:58)
[2017-01-17 08:17] VITALS: BP 113/80
--- NOTE | 2017-01-17 08:27 | Diagnostic Imaging Report ---
Indication: ABD PAIN Technique: Ultrasound of the abdomen. Comparison: None Findings: Liver: The liver is nodular. Gallbladder: The gallbladder is normal. No stones are visualized. The wall is not thickened. Common bile duct: Normal in size. Pancreas: The visualized portion of pancreas is normal in echogenicity. There are no masses. Kidneys: The kidneys are normal in size and echogenicity. There is no hydronephrosis. Spleen: The spleen is normal in size and echogenicity. Aorta: The visualized portion of the aorta is normal in caliber. IVC: The demonstrated portion of the inferior vena cava is normal. Impression: Nodular liver consistent with cirrhosis. Otherwise negative.
[2017-01-17] MEDS: DULoxetine 30mg cap ORAL SCH (08:44)
[2017-01-17] MEDS: Lactulose 20gm/30ml UDC ORAL SCH ×2 (08:44→21:29)
[2017-01-17] MEDS: Heparin 5000 units/ml inj SUBQ SCH ×2 (08:46→21:00)
[2017-01-17 10:00] LABS: OTHERS PATHOLOGIST COMMENT
[2017-01-17] MEDS ORDERED: Haloperidol 5mg/ml Inj IM ONE (11:00)
--- NOTE | 2017-01-17 11:20 | Pulmonology Progress Note ---
Assessment/Plan Assessment/Plan ASSESSMENT acute encephalopathy on chronic senile dementia liver cirrhosis Hepatitis C Pancytopenia ( likely due to liver disease) Seizure disorder Degenerative joint disease. 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 Otherwise negative. pain management PT/OT monitor HH, at baseline, anemia workup with stable iron, B 12 level, likely anemia of chronic disease psych added antidepressive, monitor DVT prophylaxis dc plan case discussed and evaluated by supervising physician Subjective Allergies: Coded Allergies: No Known Allergies (Verified , 08/24/12) Subjective not engaged in conversation, psych and neuro follows awaiting for placement Objective Last 24 Hour Vital Signs Date Time Temp Pulse Resp B/P Pulse Ox O2 Delivery O2 Flow Rate FiO2 01/17/17 08:17 98.2 96 20 113/80 99 Room Air 01/16/17 20:00 98.1 76 18 116/72 96 Room Air 01/16/17 15:51 98.0 74 20 115/75 99 Room Air 01/16/17 11:54 98.4 82 20 114/69 99 Room Air Intake and Output 01/16/17 01/17/17 19:00 07:00 Intake Total 480 ml Output Total 400 ml Balance 80 ml Intake Oral 480 ml Output Urine Total 400 ml # Voids 1 General Appearance: no acute distress HEENT: normocephalic, atraumatic, anicteric, mucous membranes moist Respiratory/Chest: lungs clear, no respiratory distress Cardiovascular: normal peripheral pulses, normal rate, no JVD Abdomen: normal bowel sounds, soft, non tender, non distended Extremities: no edema, pedal pulses normal Neurologic/Psychiatric: abnormal gait, alert - no eye contact, verbal, but not engaging in conversation Current Medications Medications (Trade) Dose Ordered Sig/Darinel Route PRN Reason Start Time Stop Time Status Last Admin Dose Admin Acetaminophen (Tylenol) 650 mg Q4H PRN ORAL fever 01/13/17 18:30 02/12/17 18:29 Acetaminophen/ Hydrocodone Bitart ([place] 10/325) 1 ea Q4H PRN ORAL Mild Pain (Pain Scale 1-3) 01/14/17 08:00 01/21/17 07:59 01/15/17 07:56 Al Hydroxide/Mg Hydroxide (Mylanta II) 30 ml Q6H PRN ORAL dyspepsia 01/13/17 18:30 02/12/17 18:29 Dextrose (Dextrose 50%) STAT PRN IV Hypoglycemia 01/13/17 18:30 02/12/17 18:29 Duloxetine HCl (Cymbalta) 30 mg DAILY ORAL 01/14/17 09:00 02/13/17 08:59 01/17/17 08:44 Escitalopram Oxalate (Lexapro) 10 mg DAILY ORAL 01/16/17 09:00 02/15/17 08:59 01/17/17 08:44 Heparin Sodium (Porcine) (Heparin 5000 units/ml) 5,000 units EVERY 12 HOURS SUBQ 01/13/17 21:00 02/12/17 20:59 Lactulose (Cephulac) 20 gm EVERY 12 HOURS ORAL 01/13/17 21:00 02/12/17 20:59 01/17/17 08:44 Levetiracetam (Keppra) 500 mg EVERY 12 HOURS ORAL 01/13/17 21:00 02/12/17 20:59 01/17/17 08:44 Lorazepam (Ativan 2mg/ml 1ml) 0.5 mg Q4H PRN IV For Anxiety 01/13/17 18:30 01/20/17 18:29 01/17/17 01:58 Methadone HCl (Methadone HCl) 10 mg Q8H PRN ORAL Moderate Pain (Pain Scale 4-6) 01/14/17 07:15 01/21/17 07:14 Mirtazapine (Remeron) 7.5 mg QHS ORAL 01/15/17 21:00 02/14/17 20:59 01/16/17 22:31 Morphine Sulfate (Morphine Sulfate) 1 mg Q4H PRN IVP Severe breakthrough pain 01/14/17 07:00 01/20/17 18:29 Ondansetron HCl (Zofran) 4 mg Q6H PRN IVP Nausea & Vomiting 01/13/17 18:30 02/12/17 18:29 Polyethylene Glycol (Miralax) 17 gm HSPRN PRN ORAL Constipation 01/13/17 18:30 02/12/17 18:29 Zolpidem Tartrate (Ambien) 5 mg HSPRN PRN ORAL Insomnia 01/13/17 18:30 02/12/17 18:29 Benigno (Alfreditonicolle)Phyllis NP Jan 17, 2017 11:20
[2017-01-17 11:42] VITALS: BP 110/75
[2017-01-17 16:24] VITALS: BP 114/58
[2017-01-17 20:00] VITALS: BP 102/64
[2017-01-18] VITALS: BP 108/60
[2017-01-18 04:00] VITALS: BP 118/68
[2017-01-18 07:59] VITALS: BP 126/89
--- NOTE | 2017-01-18 08:18 | General Progress Note ---
Assessment/Plan Assessment/Plan 1. Pancytopenia, likely secondary to underlying liver cirrhosis --> abd US consistent with liver cirrhosis --> no splenomegaly noted 2. Anemia secondary to chronic disease. Continue to closely monitor. 3. Leukopenia, likely secondary to splenomegaly. 4. History of hepatitis C with cirrhosis. 5. Encephalopathy. 6. Seizure disorder, complex, partial. . Subjective Date patient seen: Jan 17, 2017 Constitutional: Reports: no symptoms HEENT: Reports: no symptoms Cardiovascular: Reports: no symptoms Respiratory: Reports: no symptoms Gastrointestinal/Abdominal: Reports: no symptoms Genitourinary: Reports: no symptoms Neurologic/Psychiatric: Reports: no symptoms Endocrine: Reports: no symptoms Hematologic/Lymphatic: Reports: anemia Allergies: Coded Allergies: No Known Allergies (Verified , 08/24/12) Subjective anxious and restless Objective Last 24 Hour Vital Signs Date Time Temp Pulse Resp B/P Pulse Ox O2 Delivery O2 Flow Rate FiO2 01/18/17 07:59 98.6 88 21 126/89 95 Room Air 01/18/17 04:00 98.2 76 18 118/68 98 Room Air 01/18/17 00:00 97.5 92 18 108/60 99 Room Air 01/17/17 20:00 97.5 92 18 102/64 96 Room Air 01/17/17 16:24 98.0 71 20 114/58 99 Room Air 01/17/17 11:42 97.8 94 20 110/75 99 Room Air 01/17/17 08:17 98.2 96 20 113/80 99 Room Air Intake and Output 01/17/17 01/18/17 19:00 07:00 Intake Total 850 ml Output Total 300 ml Balance 550 ml Intake Oral 850 ml Output Urine Total 300 ml # Voids 5 1 # Bowel Movements 3 Laboratory Tests 01/17/17 19:20: Stool Occult Blood [Pending] Height (Feet): 5 Height (Inches): 7.00 Weight (Pounds): 145 General Appearance: no apparent distress EENT: normal ENT inspection Neck: normal alignment Abdomen: normal bowel sounds Edema: no edema noted Pedal (L), no edema noted Pedal (R) Reyes Armas Jan 18, 2017 08:18
[2017-01-18] MEDS: Lactulose 20gm/30ml UDC ORAL SCH ×3 (09:00→20:23)
[2017-01-18] MEDS: Heparin 5000 units/ml inj SUBQ SCH ×2 (09:00→20:24)
[2017-01-18] MEDS: DULoxetine 30mg cap ORAL SCH (09:38)
--- NOTE | 2017-01-18 10:20 | Diagnostic Imaging Report ---
Indication: Altered mental status Technique: Continuous helical CT scanning of the head was performed without intravenous contrast material. Axial and coronal 5 mm sections were generated. Dose: Total Dose Length Product - DLP [address] Dose Index - CTDIvol(s) 70.38 mGy. Comparison: 05/11/2006 Findings: There is dilatation of the ventricular system and prominence of cortical sulci. Extensive periventricular and subcortical white matter low density is noted. There is no shift of midline structures. No abnormal extra-axial fluid collections are noted. There is no evidence of intracerebral bleeding. No other abnormal high or low density areas are noted within the brain. Impression: Diffuse atrophy. Extensive periventricular and subcortical white matter low density most consistent with chronic small vessel white matter ischemic change. No definite acute abnormality. The CT scanner at [facility] is accredited by the [employer] and the scans are performed using protocols designed to limit radiation exposure to as low as reasonably achievable to attain images of sufficient resolution adequate for diagnostic evaluation.
--- NOTE | 2017-01-18 11:00 | Pulmonology Progress Note ---
Assessment/Plan Assessment/Plan ASSESSMENT acute encephalopathy on chronic senile dementia liver cirrhosis Hepatitis C Pancytopenia ( likely due to liver disease) Seizure disorder Degenerative joint disease. 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 Otherwise negative. pain management PT/OT monitor HH, at baseline, anemia workup with stable iron, B 12 level, likely anemia of chronic disease psych added antidepressive, monitor DVT prophylaxis ready fro dc when placement found case discussed and evaluated by supervising physician Subjective Allergies: Coded Allergies: No Known Allergies (Verified , 08/24/12) Subjective not engaged in conversation, psych and neuro follows awaiting for placement Objective Last 24 Hour Vital Signs Date Time Temp Pulse Resp B/P Pulse Ox O2 Delivery O2 Flow Rate FiO2 01/18/17 07:59 98.6 88 21 126/89 95 Room Air 01/18/17 04:00 98.2 76 18 118/68 98 Room Air 01/18/17 00:00 97.5 92 18 108/60 99 Room Air 01/17/17 20:00 97.5 92 18 102/64 96 Room Air 01/17/17 16:24 98.0 71 20 114/58 99 Room Air 01/17/17 11:42 97.8 94 20 110/75 99 Room Air Intake and Output 01/17/17 01/18/17 19:00 07:00 Intake Total 850 ml Output Total 300 ml Balance 550 ml Intake Oral 850 ml Output Urine Total 300 ml # Voids 5 1 # Bowel Movements 3 Objective General Appearance: no acute distress HEENT: normocephalic, atraumatic, anicteric, mucous membranes moist Respiratory/Chest: lungs clear, no respiratory distress Cardiovascular: normal peripheral pulses, normal rate, no JVD Abdomen: normal bowel sounds, soft, non tender, non distended Extremities: no edema, pedal pulses normal Neurologic/Psychiatric: abnormal gait, alert - no eye contact, verbal, but not engaging in conversation Laboratory Tests 01/17/17 19:20: Stool Occult Blood [Pending] Current Medications Medications (Trade) Dose Ordered Sig/Darinel Route PRN Reason Start Time Stop Time Status Last Admin Dose Admin Acetaminophen (Tylenol) 650 mg Q4H PRN ORAL fever 01/13/17 18:30 02/12/17 18:29 Acetaminophen/ Hydrocodone Bitart ([place] 10/325) 1 ea Q4H PRN ORAL Mild Pain (Pain Scale 1-3) 01/14/17 08:00 01/21/17 07:59 01/15/17 07:56 Al Hydroxide/Mg Hydroxide (Mylanta II) 30 ml Q6H PRN ORAL dyspepsia 01/13/17 18:30 02/12/17 18:29 Dextrose (Dextrose 50%) STAT PRN IV Hypoglycemia 01/13/17 18:30 02/12/17 18:29 Duloxetine HCl (Cymbalta) 30 mg DAILY ORAL 01/14/17 09:00 02/13/17 08:59 01/18/17 09:38 Escitalopram Oxalate (Lexapro) 10 mg DAILY ORAL 01/16/17 09:00 02/15/17 08:59 01/18/17 09:37 Heparin Sodium (Porcine) (Heparin 5000 units/ml) 5,000 units EVERY 12 HOURS SUBQ 01/13/17 21:00 02/12/17 20:59 Lactulose (Cephulac) 20 gm EVERY 12 HOURS ORAL 01/13/17 21:00 02/12/17 20:59 01/17/17 21:29 Levetiracetam (Keppra) 500 mg EVERY 12 HOURS ORAL 01/13/17 21:00 02/12/17 20:59 01/18/17 09:37 Lorazepam (Ativan 2mg/ml 1ml) 0.5 mg Q4H PRN IV For Anxiety 01/13/17 18:30 01/20/17 18:29 01/17/17 01:58 Methadone HCl (Methadone HCl) 10 mg Q8H PRN ORAL Moderate Pain (Pain Scale 4-6) 01/14/17 07:15 01/21/17 07:14 Mirtazapine (Remeron) 7.5 mg QHS ORAL 01/15/17 21:00 02/14/17 20:59 01/17/17 21:29 Morphine Sulfate (Morphine Sulfate) 1 mg Q4H PRN IVP Severe breakthrough pain 01/14/17 07:00 01/20/17 18:29 Ondansetron HCl (Zofran) 4 mg Q6H PRN IVP Nausea & Vomiting 01/13/17 18:30 02/12/17 18:29 Polyethylene Glycol (Miralax) 17 gm HSPRN PRN ORAL Constipation 01/13/17 18:30 02/12/17 18:29 Zolpidem Tartrate (Ambien) 5 mg HSPRN PRN ORAL Insomnia 01/13/17 18:30 02/12/17 18:29 Phyllis Pelaez NP ([place]te[place]) Jan 18, 2017 11:00
[2017-01-18 11:08] LABS: VITAMIN D 25-OH TOTAL 21 ng/mL (.)
[2017-01-18 11:49] VITALS: BP 100/57
--- NOTE | 2017-01-18 18:30 | Progress Note ---
DATE: 01/18/2017 SUBJECTIVE: The patient is doing well. No behavior issues. Compliant with medications. He still has episodes of agitation, confused and disoriented. Unable to be engaged during the evaluation. Alert and oriented to self only. MENTAL STATUS EXAMINATION: The patient is alert and oriented x1. Mood is depressed. Affect is flat, congruent with mood. Thought process is illogical. Thought content, no suicidal or homicidal ideation. ASSESSMENT: 1. Alcoholic dementia. 2. Agitation. PLAN: 1. The patient will be continued on current medication. 2. We will continue follow and readjust the medication. Mikayla Wilkes M.D. DR: LENARD JOB#: [id number] CC:
[2017-01-18 20:00] VITALS: BP 117/74
--- NOTE | 2017-01-18 22:21 | General Progress Note ---
Assessment/Plan Assessment/Plan 1. Pancytopenia, likely secondary to underlying liver cirrhosis --> abd US consistent with liver cirrhosis --> no splenomegaly noted 2. Anemia secondary to chronic disease. Continue to closely monitor. --> hgb goal above 7 --> currently h/h is stable 3. Leukopenia, likely secondary to splenomegaly. 4. History of hepatitis C with cirrhosis. 5. Encephalopathy. 6. Seizure disorder, complex, partial. . Subjective Constitutional: Reports: no symptoms HEENT: Reports: no symptoms Cardiovascular: Reports: no symptoms Respiratory: Reports: no symptoms Gastrointestinal/Abdominal: Reports: no symptoms Genitourinary: Reports: no symptoms Neurologic/Psychiatric: Reports: no symptoms Endocrine: Reports: no symptoms Hematologic/Lymphatic: Reports: anemia Allergies: Coded Allergies: No Known Allergies (Verified , 08/24/12) Subjective guarded. no new complaints, awaiting placement Objective Last 24 Hour Vital Signs Date Time Temp Pulse Resp B/P Pulse Ox O2 Delivery O2 Flow Rate FiO2 01/18/17 20:00 97.7 104 20 117/74 94 Room Air 01/18/17 11:49 98.6 93 20 100/57 97 Room Air 01/18/17 07:59 98.6 88 21 126/89 95 Room Air 01/18/17 04:00 98.2 76 18 118/68 98 Room Air 01/18/17 00:00 97.5 92 18 108/60 99 Room Air Intake and Output 01/17/17 01/18/17 19:00 07:00 Intake Total 850 ml Output Total 300 ml Balance 550 ml Intake Oral 850 ml Output Urine Total 300 ml # Voids 5 1 # Bowel Movements 3 Height (Feet): 5 Height (Inches): 7.00 Weight (Pounds): 145 General Appearance: no apparent distress EENT: normal ENT inspection Neck: normal alignment Respiratory/Chest: chest wall non-tender Edema: no edema noted Pedal (L), no edema noted Pedal (R) 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
[2017-01-18] MEDS: LORazepam Inj 2mg/ml 1ml IV PRN (22:51)
[2017-01-19] VITALS: BP 115/84
[2017-01-19 07:43] VITALS: BP 113/72
[2017-01-19] MEDS: LORazepam Inj 2mg/ml 1ml IV PRN (08:50)
[2017-01-19] MEDS: DULoxetine 30mg cap ORAL SCH (08:58)
[2017-01-19] MEDS: Lactulose 20gm/30ml UDC ORAL SCH ×2 (08:59→20:46)
[2017-01-19] MEDS: Heparin 5000 units/ml inj SUBQ SCH ×2 (09:00→20:52)
[2017-01-19 11:32] VITALS: BP 114/72
[2017-01-19 16:18] VITALS: BP 123/79
--- NOTE | 2017-01-19 16:22 | Pulmonology Progress Note ---
Assessment/Plan Problems: (1) Pancytopenia (2) Encephalopathy (3) Altered mental status (4) Liver cirrhosis (5) Anemia (6) Seizure disorder, complex partial (7) Hepatitis C Assessment/Plan pt/ot psych evaluation pending tolerating diet dc planning awaiting HMO approval Subjective ROS Limited/Unobtainable: No Constitutional: Reports: no symptoms HEENT: Repors: no symptoms Respiratory: Reports: no symptoms Cardiovascular: Reports: no symptoms Allergies: Coded Allergies: No Known Allergies (Verified , 08/24/12) Objective Last 24 Hour Vital Signs Date Time Temp Pulse Resp B/P Pulse Ox O2 Delivery O2 Flow Rate FiO2 01/19/17 16:18 98.1 16 123/79 94 Room Air 01/19/17 11:32 97.5 99 21 114/72 100 Room Air 01/19/17 07:43 97.0 98 20 113/72 96 Room Air 01/19/17 00:00 97.5 96 20 115/84 97 Room Air 01/18/17 20:00 97.7 104 20 117/74 94 Room Air Intake and Output 01/18/17 01/19/17 19:00 07:00 Intake Total 1540 ml 360 ml Balance 1540 ml 360 ml Intake Oral 1540 ml 360 ml # Voids 3 5 # Bowel Movements 5 6 HEENT: normocephalic, atraumatic Respiratory/Chest: chest wall non-tender, normal breath sounds Cardiovascular: normal peripheral pulses, normal rate Abdomen: normal bowel sounds, soft, non tender, no scars Extremities: no cyanosis Skin: no rash Current Medications Medications (Trade) Dose Ordered Sig/Darinel Route PRN Reason Start Time Stop Time Status Last Admin Dose Admin Acetaminophen (Tylenol) 650 mg Q4H PRN ORAL fever 01/13/17 18:30 02/12/17 18:29 Acetaminophen/ Hydrocodone Bitart ([place] 10/325) 1 ea Q4H PRN ORAL Mild Pain (Pain Scale 1-3) 01/14/17 08:00 01/21/17 07:59 01/15/17 07:56 Al Hydroxide/Mg Hydroxide (Mylanta II) 30 ml Q6H PRN ORAL dyspepsia 01/13/17 18:30 02/12/17 18:29 Dextrose (Dextrose 50%) STAT PRN IV Hypoglycemia 01/13/17 18:30 02/12/17 18:29 Duloxetine HCl (Cymbalta) 30 mg DAILY ORAL 01/14/17 09:00 02/13/17 08:59 01/19/17 08:58 Escitalopram Oxalate (Lexapro) 10 mg DAILY ORAL 01/16/17 09:00 02/15/17 08:59 01/19/17 08:59 Heparin Sodium (Porcine) (Heparin 5000 units/ml) 5,000 units EVERY 12 HOURS SUBQ 01/13/17 21:00 02/12/17 20:59 Lactulose (Cephulac) 20 gm EVERY 12 HOURS ORAL 01/13/17 21:00 02/12/17 20:59 01/19/17 08:59 Levetiracetam (Keppra) 500 mg EVERY 12 HOURS ORAL 01/13/17 21:00 02/12/17 20:59 01/19/17 08:59 Lorazepam (Ativan 2mg/ml 1ml) 0.5 mg Q4H PRN IV For Anxiety 01/13/17 18:30 01/20/17 18:29 01/19/17 08:50 Methadone HCl (Methadone HCl) 10 mg Q8H PRN ORAL Moderate Pain (Pain Scale 4-6) 01/14/17 07:15 01/21/17 07:14 Mirtazapine (Remeron) 7.5 mg QHS ORAL 01/15/17 21:00 02/14/17 20:59 01/18/17 20:23 Morphine Sulfate (Morphine Sulfate) 1 mg Q4H PRN IVP Severe breakthrough pain 01/14/17 07:00 01/20/17 18:29 01/19/17 02:40 Ondansetron HCl (Zofran) 4 mg Q6H PRN IVP Nausea & Vomiting 01/13/17 18:30 02/12/17 18:29 01/19/17 01:34 Polyethylene Glycol (Miralax) 17 gm HSPRN PRN ORAL Constipation 01/13/17 18:30 02/12/17 18:29 Zolpidem Tartrate (Ambien) 5 mg HSPRN PRN ORAL Insomnia 01/13/17 18:30 02/12/17 18:29 EJFF BROWN Jan 19, 2017 16:22
[2017-01-19 20:00] VITALS: BP 120/77
--- NOTE | 2017-01-19 22:15 | Progress Note ---
DATE: 01/19/2017 SUBJECTIVE: The patient continues to have incoherent cognition, not engaged during the evaluation, usually has impairment of memory, and is incapable of having a rational conversation. MENTAL STATUS EXAMINATION: The patient is alert and oriented times self and place. Mood is neutral. Affect is flat, congruent with mood. Thought process is concrete. Thought content, no suicidal or homicidal ideation. ASSESSMENT: 1. Cognitive impairment. 2. Mood disorder. 3. Psychotic disorder. PLAN: 1. The patient will be continued on current medication. 2. We will continue to follow and readjust the medication. Mikayla Wilkes M.D. DR: Matias JOB#: [id number] CC:
[2017-01-20 00:09] VITALS: BP 123/66
[2017-01-20] MEDS: LORazepam Inj 2mg/ml 1ml IV PRN (00:47)
[2017-01-20 04:00] VITALS: BP 133/69
[2017-01-20 06:50] LABS: ALPHA TOCOPHEROL 8.9 mg/L (5.3-17.5)
[2017-01-20 07:20] VITALS: BP 116/69
[2017-01-20] MEDS: Lactulose 20gm/30ml UDC ORAL SCH (08:12)
[2017-01-20] MEDS: DULoxetine 30mg cap ORAL SCH (08:12)
[2017-01-20] MEDS: Heparin 5000 units/ml inj SUBQ SCH (09:00)
--- NOTE | 2017-01-20 09:00 | General Progress Note ---
Assessment/Plan Assessment/Plan 1. Pancytopenia, likely secondary to underlying liver cirrhosis --> abd US consistent with liver cirrhosis --> no splenomegaly noted 2. Anemia secondary to chronic disease. Continue to closely monitor. --> hgb goal above 7 --> currently h/h is stable 3. Leukopenia, likely secondary to splenomegaly. 4. History of hepatitis C with cirrhosis. 5. Encephalopathy. 6. Seizure disorder, complex, partial. . Subjective Date patient seen: Jan 19, 2017 Constitutional: Reports: no symptoms HEENT: Reports: no symptoms Cardiovascular: Reports: no symptoms Respiratory: Reports: no symptoms Gastrointestinal/Abdominal: Reports: no symptoms Genitourinary: Reports: no symptoms Neurologic/Psychiatric: Reports: no symptoms Endocrine: Reports: no symptoms Hematologic/Lymphatic: Reports: no symptoms Allergies: Coded Allergies: No Known Allergies (Verified , 08/24/12) Subjective NAD, awaiting placement Objective Last 24 Hour Vital Signs Date Time Temp Pulse Resp B/P Pulse Ox O2 Delivery O2 Flow Rate FiO2 01/20/17 07:20 98.1 87 19 116/69 96 Room Air 01/20/17 04:00 97.5 76 20 133/69 98 Room Air 01/20/17 00:09 97.9 74 19 123/66 97 Room Air 01/19/17 20:00 97.5 80 20 120/77 96 Room Air 01/19/17 16:18 98.1 16 123/79 94 Room Air 01/19/17 11:32 97.5 99 21 114/72 100 Room Air Intake and Output 01/19/17 01/20/17 19:00 07:00 Intake Total 450 ml Output Total 300 ml Balance 150 ml Intake Oral 450 ml Output Urine Total 300 ml # Voids 2 4 # Bowel Movements 4 2 Height (Feet): 5 Height (Inches): 7.00 Weight (Pounds): 145 General Appearance: no apparent distress EENT: normal ENT inspection Neck: non-tender Cardiovascular: normal peripheral pulses Respiratory/Chest: chest wall non-tender Edema: no edema noted Pedal (L), no edema noted Pedal (R) Neurologic: no motor/sensory deficits Reyes Armas Jan 20, 2017 09:00
[2017-01-20 11:37] VITALS: BP 121/78
--- NOTE | 2017-01-20 13:44 | Pulmonology Progress Note ---
Assessment/Plan Assessment/Plan ASSESSMENT acute encephalopathy on chronic senile dementia liver cirrhosis Hepatitis C Pancytopenia ( likely due to liver disease) Seizure disorder Degenerative joint disease. 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 Otherwise negative. pain management PT/OT monitor HH, at baseline, anemia workup with stable iron, B 12 level, likely anemia of chronic disease psych added antidepressive, monitor DVT prophylaxis dc today to SNF case discussed and evaluated by supervising physician Subjective Allergies: Coded Allergies: No Known Allergies (Verified , 08/24/12) Subjective not engaged in conversation, sitter at the bedside psych and neuro follows placement found Objective Last 24 Hour Vital Signs Date Time Temp Pulse Resp B/P Pulse Ox O2 Delivery O2 Flow Rate FiO2 01/20/17 11:37 98.7 89 19 121/78 98 Room Air 01/20/17 07:20 98.1 87 19 116/69 96 Room Air 01/20/17 04:00 97.5 76 20 133/69 98 Room Air 01/20/17 00:09 97.9 74 19 123/66 97 Room Air 01/19/17 20:00 97.5 80 20 120/77 96 Room Air 01/19/17 16:18 98.1 16 123/79 94 Room Air Intake and Output 01/19/17 01/20/17 19:00 07:00 Intake Total 450 ml Output Total 300 ml Balance 150 ml Intake Oral 450 ml Output Urine Total 300 ml # Voids 2 4 # Bowel Movements 4 2 Objective General Appearance: no acute distress HEENT: normocephalic, atraumatic, anicteric, mucous membranes moist Respiratory/Chest: lungs clear, no respiratory distress Cardiovascular: normal peripheral pulses, normal rate, no JVD Abdomen: normal bowel sounds, soft, non tender, non distended Extremities: no edema, pedal pulses normal Neurologic/Psychiatric: abnormal gait, alert - no eye contact, verbal, but not engaging in conversation Current Medications Medications (Trade) Dose Ordered Sig/Darinel Route PRN Reason Start Time Stop Time Status Last Admin Dose Admin Acetaminophen (Tylenol) 650 mg Q4H PRN ORAL fever 01/13/17 18:30 02/12/17 18:29 Acetaminophen/ Hydrocodone Bitart ([place] 10/325) 1 ea Q4H PRN ORAL Mild Pain (Pain Scale 1-3) 01/14/17 08:00 01/21/17 07:59 01/15/17 07:56 Al Hydroxide/Mg Hydroxide (Mylanta II) 30 ml Q6H PRN ORAL dyspepsia 01/13/17 18:30 02/12/17 18:29 Dextrose (Dextrose 50%) STAT PRN IV Hypoglycemia 01/13/17 18:30 02/12/17 18:29 Duloxetine HCl (Cymbalta) 30 mg DAILY ORAL 01/14/17 09:00 02/13/17 08:59 01/20/17 08:12 Escitalopram Oxalate (Lexapro) 10 mg DAILY ORAL 01/16/17 09:00 02/15/17 08:59 01/20/17 08:12 Heparin Sodium (Porcine) (Heparin 5000 units/ml) 5,000 units EVERY 12 HOURS SUBQ 01/13/17 21:00 02/12/17 20:59 Lactulose (Cephulac) 20 gm EVERY 12 HOURS ORAL 01/13/17 21:00 02/12/17 20:59 01/20/17 08:12 Levetiracetam (Keppra) 500 mg EVERY 12 HOURS ORAL 01/13/17 21:00 02/12/17 20:59 01/20/17 08:12 Lorazepam (Ativan 2mg/ml 1ml) 0.5 mg Q4H PRN IV For Anxiety 01/13/17 18:30 01/20/17 18:29 01/20/17 00:47 Methadone HCl (Methadone HCl) 10 mg Q8H PRN ORAL Moderate Pain (Pain Scale 4-6) 01/14/17 07:15 01/21/17 07:14 Mirtazapine (Remeron) 7.5 mg QHS ORAL 01/15/17 21:00 02/14/17 20:59 01/19/17 20:47 Morphine Sulfate (Morphine Sulfate) 1 mg Q4H PRN IVP Severe breakthrough pain 01/14/17 07:00 01/20/17 18:29 01/19/17 02:40 Ondansetron HCl (Zofran) 4 mg Q6H PRN IVP Nausea & Vomiting 01/13/17 18:30 02/12/17 18:29 01/19/17 01:34 Polyethylene Glycol (Miralax) 17 gm HSPRN PRN ORAL Constipation 01/13/17 18:30 02/12/17 18:29 Zolpidem Tartrate (Ambien) 5 mg HSPRN PRN ORAL Insomnia 01/13/17 18:30 02/12/17 18:29 Benign[facility]hyll[facility] Garcia NP Jan 20, 2017 13:44
[2017-01-20 15:33] VITALS: BP 118/79
[2017-01-20] MEDS ORDERED: 1/2 NS 1000ml IV ONE (16:55)
--- NOTE | 2017-01-20 21:45 | Progress Note ---
DATE: 01/20/2017 SUBJECTIVE: The patient continues to be disorganized. The patient is confused, not engaged during the evaluation, and has episodes of anxiety and agitation. MENTAL STATUS EXAMINATION: Alert and oriented times self and place. Mood is neutral during the evaluation. Affect is constricted. Congruent mood. Thought process is concrete. Thought content, there is no suicidal or homicidal ideation. Cognition is impaired. ASSESSMENT: 1. Cognitive impairment. 2. Encephalopathy. PLAN: The patient will be continued on current medications. Provide the patient with supportive therapy and reality orientation. Mikayla Wilkes M.D. DR: MEHDI JOB#: [id number] CC:
--- NOTE | 2017-01-21 15:02 | General Progress Note ---
Assessment/Plan Assessment/Plan 1. Pancytopenia, secondary to underlying liver cirrhosis --> abd US consistent with liver cirrhosis --> no splenomegaly noted 2. Anemia secondary to chronic disease. Continue to closely monitor. --> work up has been reviewed. No evidence of iron of B12 deficiency --> hgb goal above 7 --> currently h/h is stable 3. Leukopenia, likely secondary to splenomegaly. 4. History of hepatitis C with cirrhosis. 5. Encephalopathy. 6. Seizure disorder, complex, partial. . Subjective Date patient seen: Jan 20, 2017 Constitutional: Reports: no symptoms HEENT: Reports: no symptoms Cardiovascular: Reports: no symptoms Respiratory: Reports: no symptoms Gastrointestinal/Abdominal: Reports: no symptoms Genitourinary: Reports: no symptoms Neurologic/Psychiatric: Reports: no symptoms Endocrine: Reports: no symptoms Hematologic/Lymphatic: Reports: no symptoms Allergies: Coded Allergies: No Known Allergies (Verified , 08/24/12) Subjective Clear for DC today to snf Objective Last 24 Hour Vital Signs Date Time Temp Pulse Resp B/P Pulse Ox O2 Delivery O2 Flow Rate FiO2 01/20/17 15:33 97.9 84 19 118/79 96 Room Air Intake and Output 01/20/17 01/21/17 19:00 07:00 Intake Total 660 ml Balance 660 ml Intake Oral 660 ml # Voids 3 # Bowel Movements 2 Height (Feet): 5 Height (Inches): 7.00 Weight (Pounds): 145 General Appearance: no apparent distress EENT: PERRL/EOMI Neck: non-tender Cardiovascular: regular rhythm Abdomen: no organomegaly Extremities: normal range of motion Edema: no edema noted Pedal (L), no edema noted Pedal (R) Reyes Armas Jan 21, 2017 15:02
--- NOTE | 2017-01-22 18:43 | Discharge Summary ---
Discharge Summary Hospital Course Date of Admission Jan 13, 2017 at 18:43 Date of Discharge Jan 20, 2017 at 16:56 Admitting Diagnosis AMS VERENICE Fox is a 71 year old male who was admitted on Jan 13, 2017 at 18:43 for Altered Mental Status Hospital Course [id number] Discharge Discharge Disposition Patient was discharged to SNF/Subacute Facility(03) Discharge Diagnoses: Marry Enrique NP Jan 22, 2017 18:43
--- NOTE | 2017-01-22 22:31 | Discharge Summary 2 SIG ---
DATE OF ADMISSION: 01/13/2017 DATE OF DISCHARGE: 01/20/2017 CONSULTANTS: 1. Reyes Armas M.D. 2. Mikayla Wilkes M.D. 3. Juan R Gonzalez M.D. BRIEF HOSPITAL COURSE: The patient is a 71-year-old male with history of hepatitis, cirrhosis, dementia, psychosis, and [facility] resident was brought in to ED because the patient was combative and had aggressive behavior. On evaluation at ED, laboratory workup showed liver enzymes were elevated. The patient was admitted to the medical floor for evaluation of encephalopathy, liver cirrhosis, hepatitis C, anemia, and seizures. Head CT showed diffuse atrophy with extensive periventricular and subcortical white matter low density consistent with small vessel white matter ischemic changes with no definite acute abnormality. He was provided with a sitter and was diagnosed to have major depressive disorder with cognitive impairment and alcohol dependence in full sustained remission. He was started on 7.5 mg of Remeron and Lexapro 10 mg q.a.m. His WBC was low at 3.5, hemoglobin 13, and platelet count was 80. The patient had pancytopenia likely secondary to underlying liver cirrhosis. Abdominal ultrasound done was consistent with liver cirrhosis, however, no splenomegaly was noted. Anemia was assessed to be secondary to chronic disease. Workup showed no evidence of iron or B12 deficiency. Hemoglobin and hematocrit have been stable. He had history of seizure and was maintained on anticonvulsants and there has been no recurrences. Ammonia level was within normal limits. CYNDI screen was negative. He underwent physical and occupational therapy and was eventually discharged to SNF. FINAL DIAGNOSES: 1. Acute encephalopathy on chronic senile dementia. 2. Liver cirrhosis. 3. Hepatitis C. 4. Pancytopenia due to liver disease. 5. Seizure disorder. 6. Degenerative joint disease. 7. Alcohol dependence in full remission. 8. 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 9. Major depressive disorder. 10. Anemia of chronic disease. 11. Hepatitis C. 12. Cachectic looking. DISPOSITION: The patient was discharged to [facility]. MEDICATIONS: Refer to med list. Pradeep Saavedra M.D. I have been assigned to dictate discharge summary on this account and I was not involved in the patient's management. Marry Enrique N.P. DR: IVORY JOB#: [id number] CC: THIEN
== END 2017-01-20 16:56 | DRG 52 ==
LOC: EDBD 16:55 → EMR 18:26 → 4E 18:43 → EDBEDREQ 20:19 → 4E 20:59
DX: G93.40 Encephalopathy, unspecified (principal); D61.818 Other pancytopenia; F02.81 Dementia in other diseases classified elsewhere, unspecified severity, with behavioral disturbance; G31.2 Degeneration of nervous system due to alcohol; K74.60 Unspecified cirrhosis of liver; B19.20 Unspecified viral hepatitis C without hepatic coma; F10.21 Alcohol dependence, in remission; F32.9 Major depressive disorder, single episode, unspecified; M19.90 Unspecified osteoarthritis, unspecified site; D63.8 Anemia in other chronic diseases classified elsewhere; G40.209 Localization-related (focal) (partial) symptomatic epilepsy and epileptic syndromes with complex partial seizures, not intractable, without status epilepticus; R16.1 Splenomegaly, not elsewhere classified; F29 Unspecified psychosis not due to a substance or known physiological condition; F39 Unspecified mood [affective] disorder
CPT/HCPCS: 36415; 70450; 76700; 80053; 80061; 80299; 81001; 82140; 82270; 82306; 82378; 82607; 82746; 83036; 83540; 83550; 83615; 83690; 84443; 84446; 85007; 85025; 85044; 85060; 85610; 85651; 85730; 86039; 87070; 87205; 95819; J2405

== ENCOUNTER 2018-05-12 10:18 | Emergency (ER) | payer MEDICARE, MEDICAID ==
[~2018-05-12] VITALS: Ht 180.3 cm; Wt 83.9 kg
[~2018-05-12 10:18] MED LIST changes: +MIRTAZAPINE15 M3 ORAL
[2018-05-12 10:25] VITALS: BP 160/68
[2018-05-12] MEDS ORDERED: Lactulose 20gm/30ml UDC ORAL ONE (10:45)
--- NOTE | 2018-05-12 11:24 | Emergency Room Report ---
History of Present Illness General Chief Complaint: Abnormal Labs Source: Medical Record Present Illness HPI This chronically ill patient referred from SNF due to more confused/lethargic than baseline and they state they have an ammonia level 122. Compliant with regular Lactulose. Last admission here one year ago: PMH: hep C, cirrhosis, liver failure, dementia, major depressive disorder, chronic alcoholic (remote), pancytopenia (chronic dz) Allergies: Coded Allergies: No Known Allergies (Verified , 08/24/12) Nursing Documentation-PMH Hx Cardiac Problems: Yes - CHF Hx Cancer: No - per [facility] records Hx Gastrointestinal Problems: No - CIRRHOSIS Hx Neurological Problems: Yes - Encephalopathy, convulsions Hx Seizures: Yes Review of Systems Constitutional: Reports: see HPI All Other Systems: limited Physical Exam Vital Signs Date Time Temp Pulse Resp B/P (MAP) Pulse Ox O2 Delivery O2 Flow Rate FiO2 05/12/18 10:18 97.3 71 18 101/67 94 Room Air Sp02 EP Interpretation: reviewed, normal General Appearance: no apparent distress, cachetic, Stupor - just staring Head: normocephalic, atraumatic ENT: dry mucus membranes Neck: normal inspection, no bony tend Respiratory: no respiratory distress Cardiovascular #1: regular rate, rhythm, no edema Gastrointestinal: normal bowel sounds, non tender Musculoskeletal: no calf tenderness, other - deconditioned, Neurologic: other - awake, just kind of staring, does not cooperate with questions Psychiatric: other - flat (or lethargic) Skin: normal color, no rash Medical Decision Making Diagnostic Impression: Primary Impression: Cirrhosis ER Course no change during ED stay our ammonia level is 17. SNF 120 this am. both cannot be correct and I am certain that ours was done correctly. therefore I believe SNF result is a technique or lab error. OK to return to SNF Rhythm Strip Diag. Results Rhythm Strip Time: 11:23 EP Interpretation: yes Rate: 85 Rhythm: NSR Last Vital Signs Date Time Temp Pulse Resp B/P (MAP) Pulse Ox O2 Delivery O2 Flow Rate FiO2 05/12/18 10:18 97.3 71 18 101/67 94 Room Air Disposition: HOME, SELF-CARE Condition: Stable Patient Instructions: Cirrhosis Carlos Eduardo Alan M.D. May 12, 2018 11:24
[2018-05-12 11:26] LABS: HEMATOCRIT 40.6 % (42.0-52.0); MEAN CORPUSCULAR VOLUME 94 FL (80-99); PLATELET COUNT 90 K/UL (150-450); RED BLOOD COUNT 4.32 M/UL (4.70-6.10); RED CELL DISTRIBUTION WIDTH 11.6 % (11.6-14.8); WHITE BLOOD COUNT 3.3 K/UL (4.8-10.8)
[2018-05-12 11:35] LABS: INR 1.1 (0.9-1.1)
[2018-05-12 11:37] LABS: ANION GAP 6 mmol/L (5-15); BLOOD UREA NITROGEN 18 mg/dL (7-18); CALCIUM 8.4 MG/DL (8.5-10.1); CARBON DIOXIDE 28 MMOL/L (21-32); CHLORIDE 108 MMOL/L (98-107); CREATININE 0.8 MG/DL (0.55-1.30); POTASSIUM 4.2 MMOL/L (3.5-5.1); SODIUM 142 MMOL/L (136-145)
[2018-05-12 11:40] LABS: AMMONIA 17 umol/L (11-32)
[2018-05-12 11:42] LABS: ALANINE AMINOTRANSFERASE 142 U/L (12-78); ALBUMIN 2.8 G/DL (3.4-5.0); ALBUMIN/GLOBULIN RATIO 0.5 (1.0-2.7); ALKALINE PHOSPHATASE 83 U/L (46-116); ASPARTATE AMINO TRANSFERASE 124 U/L (15-37); BILIRUBIN,TOTAL 0.5 MG/DL (0.2-1.0)
[2018-05-12 12:08] VITALS: BP 94/65
[2018-05-12 13:41] VITALS: BP 112/62
== END 2018-05-12 13:45 | disposition home or self-care (01) ==
LOC: EDUNIT# 10:18 → EDBD 10:18 → EMR 11:35
DX: R53.83 Other fatigue (principal); K74.60 Unspecified cirrhosis of liver; B19.20 Unspecified viral hepatitis C without hepatic coma; D61.818 Other pancytopenia
CPT/HCPCS: 36415; 80053; 82140; 83690; 85007; 85025; 85610; 99283

== ENCOUNTER 2018-09-21 13:26 | Inpatient (IN) | payer MEDICARE, MEDICAID ==
[~2018-09-21] VITALS: Ht 180.3 cm; Wt 47.7 kg
--- NOTE | 2018-09-21 13:47 | NUR ---
ED Nurse Note: Pt sent from [facility] for swollow eval. Pt is AAOx1 Respirations are even and unlabored.
--- NOTE | 2018-09-21 14:39 | Emergency Room Report ---
History of Present Illness General Chief Complaint: General Complaint Source: EMS Present Illness HPI Patient presents from nursing facility with reports of failing swallow study Patient has not been able to take oral intake for several days Seems to be worsening Patient himself is not able to provide significant input Appears to have history of possible dementia There was no reports of vomiting or diarrhea Unknown regarding fever Allergies: Coded Allergies: No Known Allergies (Verified , 08/24/12) Patient History Past Medical History: see triage record Pertinent Family History: none Reviewed Nursing Documentation: PMH: Agreed; PSxH: Agreed Nursing Documentation-PMH Hx Cancer: No - per [facility] records Hx Gastrointestinal Problems: No - CIRRHOSIS History Of Psychiatric Problem: Yes - Schizo, Anxiety Hx Neurological Problems: Yes - Encephalopathy, convulsions Hx Seizures: Yes Review of Systems All Other Systems: negative except mentioned in HPI Physical Exam Vital Signs Date Time Temp Pulse Resp B/P (MAP) Pulse Ox O2 Delivery O2 Flow Rate FiO2 09/21/18 13:16 72 20 103/67 95 Room Air Sp02 EP Interpretation: reviewed, normal General Appearance: no apparent distress Head: normocephalic, atraumatic Eyes: bilateral eye PERRL ENT: dry mucus membranes Neck: full range of motion, supple Respiratory: lungs clear, no retraction, no accessory muscle use Gastrointestinal: non tender, soft Musculoskeletal: other - Patient chronically debilitated Neurologic: responsive - To physical stimuli Skin: other - Several areas of skin breakdown Lymphatic: no adenopathy Procedures Critical Care Time Critical Care Time 70 minutes for multiple re-evaluations critical findings concerning for neurological neurosurgical compromise, life-threatening pathology, requiring multiple neurological exams not including any procedural time Medical Decision Making Diagnostic Impression: Primary Impression: Metastatic 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 Additional Impression: Inability to swallow ER Course Given the patient's history and presentation initial workup was initiated Patient shows mildly low potassium level Further hydration is provided given the patient's difficulty recently swallowing CT imaging was also obtained There is evidence and concern of metastatic disease to the brain the metastasis is also causing a shift This was discussed with the patient's admitting and primary physician He reports that he will follow further with the patient at [facility] feels comfortable with the admission Patient is transitioning to a DO NOT RESUSCITATE status And will have further inpatient evaluation Labs Test 09/21/18 14:45 09/22/18 06:18 09/22/18 09:15 09/22/18 12:22 White Blood Count 4.5 K/UL (4.8-10.8) 5.5 K/UL (4.8-10.8) Red Blood Count 4.15 M/UL (4.70-6.10) 4.35 M/UL (4.70-6.10) Hemoglobin 13.5 G/DL (14.2-18.0) 14.2 G/DL (14.2-18.0) Hematocrit 37.6 % (42.0-52.0) 40.4 % (42.0-52.0) Mean Corpuscular Volume 91 FL (80-99) 93 FL (80-99) Mean Corpuscular Hemoglobin 32.6 PG (27.0-31.0) 32.6 PG (27.0-31.0) Mean Corpuscular Hemoglobin Concent 36.0 G/DL (32.0-36.0) 35.1 G/DL (32.0-36.0) Red Cell Distribution Width 12.1 % (11.6-14.8) 12.1 % (11.6-14.8) Platelet Count 150 K/UL (150-450) 140 K/UL (150-450) Mean Platelet Volume 6.7 FL (6.5-10.1) 6.1 FL (6.5-10.1) Neutrophils (%) (Auto) 63.2 % (45.0-75.0) 55.7 % (45.0-75.0) Lymphocytes (%) (Auto) 27.8 % (20.0-45.0) 34.5 % (20.0-45.0) Monocytes (%) (Auto) 7.1 % (1.0-10.0) 7.6 % (1.0-10.0) Eosinophils (%) (Auto) 1.2 % (0.0-3.0) 1.2 % (0.0-3.0) Basophils (%) (Auto) 0.7 % (0.0-2.0) 0.9 % (0.0-2.0) Prothrombin Time 14.0 SEC (9.30-11.50) Prothromb Time International Ratio 1.3 (0.9-1.1) Activated Partial Thromboplast Time 29 SEC (23-33) Sodium Level 137 MMOL/L (136-145) 141 MMOL/L (136-145) Potassium Level 2.8 MMOL/L (3.5-5.1) 3.5 MMOL/L (3.5-5.1) Chloride Level 104 MMOL/L (98-107) 107 MMOL/L (98-107) Carbon Dioxide Level 23 MMOL/L (21-32) 27 MMOL/L (21-32) Anion Gap 10 mmol/L (5-15) 7 mmol/L (5-15) Blood Urea Nitrogen 7 mg/dL (7-18) 9 mg/dL (7-18) Creatinine 0.6 MG/DL (0.55-1.30) 0.7 MG/DL (0.55-1.30) Estimat Glomerular Filtration Rate mL/min (>60) mL/min (>60) Glucose Level 93 MG/DL (74-106) 87 MG/DL (74-106) Calcium Level 7.8 MG/DL (8.5-10.1) 8.0 MG/DL (8.5-10.1) Total Bilirubin 1.3 MG/DL (0.2-1.0) 1.4 MG/DL (0.2-1.0) Direct Bilirubin 0.4 MG/DL (0.0-0.3) 0.5 MG/DL (0.0-0.3) Aspartate Amino Transf (AST/SGOT) 76 U/L (15-37) 74 U/L (15-37) Alanine Aminotransferase (ALT/SGPT) 61 U/L (12-78) 60 U/L (12-78) Alkaline Phosphatase 66 U/L (46-116) 59 U/L (46-116) Total Protein 6.8 G/DL (6.4-8.2) 6.9 G/DL (6.4-8.2) Albumin 2.2 G/DL (3.4-5.0) 2.2 G/DL (3.4-5.0) Globulin 4.6 g/dL 4.7 g/dL Albumin/Globulin Ratio 0.5 (1.0-2.7) 0.5 (1.0-2.7) Lipase 223 U/L (73-393) Urine Color Yellow Urine Appearance Slightly cloudy Urine pH 6.5 (4.5-8.0) Urine Specific [place] 1.015 (1.005-1.035) Urine Protein 1+ (NEGATIVE) Urine Glucose (UA) Negative (NEGATIVE) Urine Ketones 1+ (NEGATIVE) Urine Blood 1+ (NEGATIVE) Urine Nitrite Negative (NEGATIVE) Urine Bilirubin Negative (NEGATIVE) Urine Urobilinogen 8 MG/DL (0.0-1.0) Urine Leukocyte Esterase 3+ (NEGATIVE) Urine RBC 0-2 /HPF (0 - 0) Urine WBC 30-40 /HPF (0 - 0) Urine Squamous Epithelial Cells Occasional /LPF Urine Bacteria Many /HPF (NONE) Rhythm Strip Diag. Results EP Interpretation: yes Rate: 60 Rhythm: NSR, no PVC's, no ectopy Chest X-Ray Diagnostic Results Chest X-Ray Diagnostic Results : Chest X-Ray Ordered: Yes # of Views/Limited/Complete: 1 View Indication: Chest Pain EP Interpretation: Yes Interpretation: no consolidation, no pneumothorax, other - Small left effusion Impression: Other - Small left effusion Electronically Signed by: Felipe Soto DO CT/MRI/US Diagnostic Results CT/MRI/US Diagnostic Results : Impression CT headImpression: Extensive right-sided cerebral vasogenic edema, less extensive left-sided cerebral vasogenic edema. There is suggestion of ill-defined masses in the right hemisphere and a more clearly defined mass in the left hemisphere. Given the multiplicity of findings, most likely due to metastatic disease. Multiple primary neoplasms or multifocal infection also possible. There is significant mass effect, with 1.2 cm of [id number] midline shift, as well as evidence of trapping resulting in hydrocephalus of the right temporal horn and entire left lateral ventricle Apparent thickening of the falx and tentorium. As it is not apparent on the previous study, the possibility of an unusual thin parafalcine and paratentorial subdural hematoma should be considered. This measures only 1 to 2 mm thick if real Questionable vasogenic edema and possible small masses within the cerebellum, as described Right occipital calvarial lucency. Clean margins suggests that this could be postsurgical in nature, but could also represent an old ununited fracture. This appears to be remote, as it was not evident on the prior 2017 exam, as well as an earlier study of 2006. Bilateral temporal and left inferior frontal encephalomalacia, also demonstrated on prior studies, may reflect prior contusions versus prior infarcts Last Vital Signs Date Time Temp Pulse Resp B/P (MAP) Pulse Ox O2 Delivery O2 Flow Rate FiO2 09/21/18 13:42 84 20 Room Air 09/21/18 13:16 103/67 95 Status: improved Disposition: ADMITTED INPATIENT Condition: Critical Referrals: Pradeep Saavedra MD (PCP) Felipe Soto DO Sep 21, 2018 14:39
[2018-09-21 15:12] LABS: BASOPHILS % (AUTO) 0.7 % (0.0-2.0); EOSINOPHILS % (AUTO) 1.2 % (0.0-3.0); HEMATOCRIT 37.6 % (42.0-52.0); HEMOGLOBIN 13.5 G/DL (14.2-18.0); LYMPHOCYTES % (AUTO) 27.8 % (20.0-45.0); MEAN CORPUSCULAR VOLUME 91 FL (80-99); MONOCYTES % (AUTO) 7.1 % (1.0-10.0); NEUTROPHILS % (AUTO) 63.2 % (45.0-75.0); PLATELET COUNT 150 K/UL (150-450); RED BLOOD COUNT 4.15 M/UL (4.70-6.10); RED CELL DISTRIBUTION WIDTH 12.1 % (11.6-14.8); WHITE BLOOD COUNT 4.5 K/UL (4.8-10.8)
[2018-09-21 15:24] LABS: INR 1.3 (0.9-1.1)
--- NOTE | 2018-09-21 15:38 | Diagnostic Imaging Report ---
Indications: Altered mental status Technique: Spiral acquisitions obtained through the brain. Angled axial and coronal 5 x 5 mm slices were reconstructed. Total dose length product 1457.02 mGycm. CTDI vol(s) 70.38 mGy. Dose reduction achieved using automated exposure control Comparison: 01/18/2017 Findings: There is extensive of vasogenic edema involving the entirety of the cerebral deep white matter in the right hemisphere. There is less extensive vasogenic edema in the high left parietal and frontal deep white matter. Poorly defined 2.8 cm mass appears to be present in the right posterior parasagittal parietal lobe, and there is suggestion of a 3.5 cm mass centered in the right centrum semiovale. There is a more clearly defined 11 mm nodule in the high left parietal centrum semiovale. The asymmetry of the findings results in right to left midline shift of about 1.2 cm. The basilar cisterns remain open. The mass effect results in compression of the right lateral ventricle. However, the temporal horn is dilated, indicating it may be trapped. There is also hydrocephalus of the left lateral ventricle, indicating a component of trapping of the left lateral ventricle is well. There is effacement of the bilateral cerebral sulci. There is more ill-defined suggestion of vasogenic edema within the cerebellum, particularly the left hemisphere, and questionably a slightly hyperdense 2 cm nodule in the posterior left cerebellar hemisphere and possibly a smaller 1 cm nodule in the left brachium pontis. These findings are more questionable than the supratentorial findings, however. There is uniform thickening of the falx, which is more striking than on the prior exam. There is similar uniform thickening of the tentorium bilaterally, also more striking than on the previous study. Degree of thickening is 1 to 2 mm. There is evidence linear lucency is seen in the right occipital calvarium. This is also evident on the previous study as well as exam dated back to 2005. There is encephalomalacia of the inferior left frontal lobe and bilateral temporal tips, also evident previously. Other than parafalcine/peritentorial abnormality, no definite acute intracranial hemorrhage. The mastoids are clear. The visualized orbits and sinuses are unremarkable. Impression: Extensive right-sided cerebral vasogenic edema, less extensive left-sided cerebral vasogenic edema. There is suggestion of ill-defined masses in the right hemisphere and a more clearly defined mass in the left hemisphere. Given the multiplicity of findings, most likely due to metastatic disease. Multiple primary neoplasms or multifocal infection also possible. There is significant mass effect, with 1.2 cm of [id number] midline shift, as well as evidence of trapping resulting in hydrocephalus of the right temporal horn and entire left lateral ventricle Apparent thickening of the falx and tentorium. As it is not apparent on the previous study, the possibility of an unusual thin parafalcine and paratentorial subdural hematoma should be considered. This measures only 1 to 2 mm thick if real Questionable vasogenic edema and possible small masses within the cerebellum, as described Right occipital calvarial lucency. Clean margins suggests that this could be postsurgical in nature, but could also represent an old ununited fracture. This appears to be remote, as it was not evident on the prior 2017 exam, as well as an earlier study of 2005. Bilateral temporal and left inferior frontal encephalomalacia, also demonstrated on prior studies, may reflect prior contusions versus prior infarcts Critical value findings phoned to Dr. Soto in the emergency room at the time of interpretation The CT scanner at [facility] is accredited by the [employer] and the scans are performed using protocols designed to limit radiation exposure to as low as reasonably achievable to attain images of sufficient resolution adequate for diagnostic evaluation.
[2018-09-21 15:39] LABS: ANION GAP 10 mmol/L (5-15); BLOOD UREA NITROGEN 7 mg/dL (7-18); CALCIUM 7.8 MG/DL (8.5-10.1); CARBON DIOXIDE 23 MMOL/L (21-32); CHLORIDE 104 MMOL/L (98-107); CREATININE 0.6 MG/DL (0.55-1.30); POTASSIUM 2.8 MMOL/L (3.5-5.1); SODIUM 137 MMOL/L (136-145)
[2018-09-21 15:51] LABS: ALANINE AMINOTRANSFERASE 61 U/L (12-78); ALBUMIN 2.2 G/DL (3.4-5.0); ALBUMIN/GLOBULIN RATIO 0.5 (1.0-2.7); ALKALINE PHOSPHATASE 66 U/L (46-116); ASPARTATE AMINO TRANSFERASE 76 U/L (15-37); BILIRUBIN,TOTAL 1.3 MG/DL (0.2-1.0)
[2018-09-21 16:26] VITALS: BP 119/78
[2018-09-21 16:28] LABS: BILIRUBIN,DIRECT 0.4 MG/DL (0.0-0.3)
[2018-09-21] MEDS ORDERED: Dexamethasone 4mg/ml vial IVP ONE (16:30)
--- NOTE | 2018-09-21 17:10 | NUR ---
NURSE NOTES: Received report from DANIKA Mckenzie. 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 No active s/s cardiac, respiratory distress noticed at this time. Patient on room air, VS at the time of arrival BP 110/72, HR 72, O2 sat 98%, T 97.3, denies pain at this time. Patient open eyes spontaneous, garbled speech. IV on left 20 G FA, Rt 24G wrist SL, asymptomatic, patent, intact. No belonging. Bed in lowest position, side rails upx3, call light within reach. Will continue to monitor.
--- NOTE | 2018-09-21 17:55 | Diagnostic Imaging Report ---
Indication: Shortness of breath Technique: One view of the chest Comparison: 12/15/2013 Findings: Left shoulder hardware is again demonstrated. There is diffuse interstitial and airspace edema laterally. There may be a small left pleural effusion. The heart is upper limits normal in size Old fracture deformities of multiple right ribs are again noted. There are degenerative changes of the right shoulder Impression: Bilateral interstitial and airspace edema Possible left pleural effusion Other findings as noted
--- NOTE | 2018-09-21 18:20 | NUR ---
NURSE NOTES: Page Dr. Hunt for admission order, awaiting for callback, will continue to follow up.
--- NOTE | 2018-09-21 19:10 | NUR ---
NURSE NOTES: Per Dr. Hunt , call Dr. Saavedra for admission order. Paged Dr. Saavedra regarding admission order. Per Dr. Saavedra, will put order. Order noted, carried out.
[2018-09-21] MEDS ORDERED: LORazepam Inj 2mg/ml 1ml IV PRN (19:15)
[2018-09-21] MEDS ORDERED: Morphine Sulfate 2mg/ml Inj(IV/IM USE ONLY) IVP PRN ×2 (19:15→20:45)
--- NOTE | 2018-09-21 19:30 | NUR ---
NURSE NOTES: Report received from Yazan GARNICA. Pt is resting in bed in stable condition. Pt is awake, alert and oriented x1. Pt is intermittently combative towards staff threatening verbally and physically to hit staff members. Pt is on room air and breathing is even and unlabored. No acute distress noted. IV site is L FA #20g and is asymptomatic, patent, and intact. R wrist #24g IV site is occluded. Pt is refusing removal at this time. Will attempt to remove at a later time. Bed is placed in lowest position with brake engaged, side rails up x3, and bed alarm on. Call light and side table placed within reach. Will continue to monitor.
--- NOTE | 2018-09-21 19:38 | NUR ---
HAND-OFF: Report given to DANIKA Hollins.
--- NOTE | 2018-09-21 19:40 | NUR ---
NURSE NOTES: MD Saavedra notified that POLST in chart from 2017 states that patient is full code. Per MD orders, pt is DNR/DNI. Will continue per MD orders.
[2018-09-21 20:00] VITALS: BP 118/70
[2018-09-21] MEDS ORDERED: D5 1/2NS 1,000 ML IV SCH (20:30)
--- NOTE | 2018-09-21 20:38 | NUR ---
NURSE NOTES: MD Saavedra notified of low potassium to 2.8. No new orders at this time. Will continue to monitor.
--- NOTE | 2018-09-21 20:43 | NUR ---
NURSE NOTES: MD Hunt notified of low potassium to 2.8. Per MD Hunt, place order for D5 1/2 NS w/ 40meq KCL @ 50 cc/hr and x1 dose of 40meq KCL PO. Orders noted and carried out.
[2018-09-21] MEDS: Heparin 5000 units/ml inj SUBQ SCH (21:00)
--- NOTE | 2018-09-21 22:09 | NUR ---
NURSE NOTES: Pt is refusing all meds. Pt attempting to hit nurses. Will notify MD and continue to monitor patient.
--- NOTE | 2018-09-21 22:11 | NUR ---
NURSE NOTES: Message left to notify MD Hunt that pt is combative and refusing all PO medications. Awaiting call back for further instructions.
[2018-09-21] MEDS: D5 1/2NS w/KCl 40meq 1000ml 1,000 ML IV SCH (22:49)
[2018-09-22] VITALS: BP 106/66
[2018-09-22 04:00] VITALS: BP 115/67
--- NOTE | 2018-09-22 07:03 | NUR ---
CASE MANAGEMENT:REVIEW 73 YR OLD MALE BIBA FROM [facility] CC: FAILED SWALLOW EVAL SI: DEHYDRATION . WEAKNESS 98.5 72 20 103/67 95% ON RA K-2.8 IS: 500CC NS BOLUS IV DECADRON X1 CT HEAD URINE REFLEX : TO TELEMETRY IS: IVF+ 40MEQ KCL INTERQUAL CRITERIA MET
--- NOTE | 2018-09-22 07:19 | NUR ---
HAND-OFF: Report given to Chandan Anderson RN. Pt is resting in bed in stable condition. No acute distress noted. Endorsed plan of care.
--- NOTE | 2018-09-22 07:20 | NUR ---
NURSE NOTES: Report received from DANIKA Hollins. Pt is resting in bed in stable condition. Pt is awake, alert and oriented x1. Pt is resting in bed with eyes open. Pt is on room air and breathing is even and unlabored. Patient is on awake overnight monitor. No acute distress noted. IV site is L FA #20g and is asymptomatic, patent, and intact. Bed is placed in lowest position with brake engaged, side rails up x3, and bed alarm on. Call light and side table placed within reach. Will continue to monitor.
[2018-09-22 07:31] LABS: BASOPHILS % (AUTO) 0.9 % (0.0-2.0); EOSINOPHILS % (AUTO) 1.2 % (0.0-3.0); HEMATOCRIT 40.4 % (42.0-52.0); HEMOGLOBIN 14.2 G/DL (14.2-18.0); LYMPHOCYTES % (AUTO) 34.5 % (20.0-45.0); MEAN CORPUSCULAR VOLUME 93 FL (80-99); MONOCYTES % (AUTO) 7.6 % (1.0-10.0); NEUTROPHILS % (AUTO) 55.7 % (45.0-75.0); PLATELET COUNT 140 K/UL (150-450); RED BLOOD COUNT 4.35 M/UL (4.70-6.10); RED CELL DISTRIBUTION WIDTH 12.1 % (11.6-14.8); WHITE BLOOD COUNT 5.5 K/UL (4.8-10.8)
[2018-09-22 08:00] VITALS: BP 105/61
[2018-09-22] MEDS: Heparin 5000 units/ml inj SUBQ SCH ×2 (09:00→20:22)
[2018-09-22 09:40] LABS: ALANINE AMINOTRANSFERASE 60 U/L (12-78); ALBUMIN 2.2 G/DL (3.4-5.0); ALBUMIN/GLOBULIN RATIO 0.5 (1.0-2.7); ALKALINE PHOSPHATASE 59 U/L (46-116); ANION GAP 7 mmol/L (5-15); ASPARTATE AMINO TRANSFERASE 74 U/L (15-37); BILIRUBIN,TOTAL 1.4 MG/DL (0.2-1.0); BLOOD UREA NITROGEN 9 mg/dL (7-18); CARBON DIOXIDE 27 MMOL/L (21-32); CHLORIDE 107 MMOL/L (98-107); CREATININE 0.7 MG/DL (0.55-1.30); POTASSIUM 3.5 MMOL/L (3.5-5.1); SODIUM 141 MMOL/L (136-145)
[2018-09-22 09:50] LABS: BILIRUBIN,DIRECT 0.5 MG/DL (0.0-0.3)
--- NOTE | 2018-09-22 11:00 | NUR ---
NURSE NOTES: Patient refused heparin. Notified Dr. Saavedra. Addendum: 09/22/18 at 1556 by Scotty Anderson RN @11:00am: Spoke with ict sales representative from [facility] in regards to hospice care. Spoke with Dr. Saavedra.
--- NOTE | 2018-09-22 11:42 | Consultation ---
History of Present Illness General Date patient seen: Sep 22, 2018 Chief Complaint: General Complaint Present Illness HPI 73 year old male with hx of Hepaitis C, cirrhosis, Dementia, psychosis, cachectic, half-way resident, was recently hospitalized at [facility] for weight loss. He was found to have metastatic disease with mets to brain. He was transferred back to half-way with IV fluids and request for comfort care. Pt is again transferred to hospital for rapid decline and worsening of mental status. Allergies: Coded Allergies: No Known Allergies (Verified , 08/24/12) Medication History Scheduled Cranberry Conc/C/Bacill Coag (Cranberry Tablet), 2 EACH PO DAILY, (Reported) Docusate Sodium (Docusate Sodium), 250 MG ORAL DAILY, (Reported) Docusate Sodium* (Colace*), 100 MG ORAL EVERY 12 HOURS, (Reported) Duloxetine Hcl* (Cymbalta*), 30 MG ORAL DAILY, (Reported) Folic Acid* (Folic Acid*), 1 MG ORAL DAILY, (Reported) Heparin Sod (Porcine) (Heparin Sodium*), 5,000 UNITS SUBQ EVERY 12 HOURS, ( Reported) Lactulose (Lactulose*), 30 ML ORAL EVERY 12 HOURS, (Reported) Levetiracetam (Keppra), 500 MG ORAL EVERY 12 HOURS, (Reported) Lorazepam* (Ativan*), 1 MG ORAL Q6HR, (Reported) Magnesium Hydroxide* (Milk Of Magnesia*), 30 ML ORAL DAILY, (Reported) Mirtazapine* (Mirtazapine*), 7.5 MG ORAL QHS Multivitamin (Multi-Vitamin Daily), 1 EACH PO DAILY, (Reported) Ranitidine Hcl* (Zantac*), 150 MG ORAL BID, (Reported) Ranitidine Hcl* (Ranitidine Hcl*), 150 MG PO DAILY, (Reported) Vitamin B Complex (B Complete), 100 MG ORAL DAILY, (Reported) [valporic acid], 250 PO EVERY 12 HOURS, (Reported) Scheduled PRN Acetaminophen (Acetaminophen), 650 MG ORAL Q6H PRN for Prn Headache/Temp > 101, (Reported) Acetaminophen (Tylenol), 650 MG ORAL Q6H PRN for For Pain, (Reported) Al Hydroxide/mg Hydroxide (Mag-Al Liquid), 30 ML ORAL Q6HR PRN for Abdominal cramps, (Reported) Hydrocodone Bit/Acetaminophen 10-325* (Sheldon 10-325*), 1 TAB ORAL Q4H PRN for For Pain, (Reported) Hydrocodone Bit/Acetaminophen 5-325* (Sheldon 5-325*), 1 TAB ORAL Q6HR PRN for For Pain, (Reported) Magnesium Hydroxide (Milk of Magnesia), 30 ML ORAL HS PRN for Constipation, ( Reported) Methadone Hcl* (Methadone*), 10 MG PO EVERY 8 HOURS PRN for For Pain, (Reported) Ondansetron (Zofran), 4 MG ORAL Q6H PRN for Nausea & Vomiting, (Reported) Polyethylene Glycol 3350* (Miralax*), 17 GM ORAL QHS PRN for Constipation, ( Reported) Temazepam* (Restoril*), 15 MG ORAL BEDTIME PRN for Insomnia, (Reported) Zolpidem Tartrate* (Ambien*), 5 MG ORAL BEDTIME PRN for Insomnia, (Reported) Patient History Healthcare decision maker Lucy Cavazos Resuscitation status Full Code Advanced Directive on File Past Medical/Surgical History Past Medical/Surgical History: (1) Hepatitis C (2) Liver cirrhosis (3) Thrombocytopenia (4) Portal hypertension (5) Psychosis (6) Alcohol Abuse (7) Seizure disorder Review of Systems All Other Systems: negative except mentioned in HPI Physical Exam General Appearance: WD/WN, cachetic Lines, tubes and drains: peripheral HEENT: normocephalic, atraumatic Neck: non-tender, normal alignment Respiratory/Chest: chest wall non-tender, lungs clear Breasts: no masses Cardiovascular/Chest: normal peripheral pulses Abdomen: normal bowel sounds, non tender Genitourinary/Rectal: normal genital exam Extremities: normal range of motion Skin Exam: normal pigmentation Neurologic: dragline operator 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 normal Last 24 Hour Vital Signs Date Time Temp Pulse Resp B/P (MAP) Pulse Ox O2 Delivery O2 Flow Rate FiO2 09/22/18 09:00 Room Air 09/22/18 08:00 98.1 79 18 105/61 (76) 95 09/22/18 07:55 85 09/22/18 04:00 85 09/22/18 04:00 98.1 93 19 115/67 (83) 95 09/22/18 00:00 98.8 71 17 106/66 (79) 95 4/10/19 00:00 78 09/21/18 21:00 Room Air 09/21/18 20:00 98.1 79 16 118/70 (86) 97 09/21/18 20:00 83 09/21/18 18:10 Room Air 09/21/18 17:02 98.5 88 18 119/78 96 Room Air 09/21/18 16:26 88 18 119/78 96 Room Air 09/21/18 13:42 84 20 Room Air 09/21/18 13:16 72 20 103/67 95 Room Air Intake and Output 09/21/18 09/22/18 19:00 07:00 Intake Total 0 ml Output Total 200 ml Balance 0 ml -200 ml Intake Oral 0 ml Output Urine Total 200 ml # Voids 2 # Bowel Movements 1 Laboratory Tests Test 09/21/18 14:45 09/22/18 06:18 09/22/18 09:15 White Blood Count 4.5 K/UL (4.8-10.8) L 5.5 K/UL (4.8-10.8) Red Blood Count 4.15 M/UL (4.70-6.10) L 4.35 M/UL (4.70-6.10) L Hemoglobin 13.5 G/DL (14.2-18.0) L 14.2 G/DL (14.2-18.0) Hematocrit 37.6 % (42.0-52.0) L 40.4 % (42.0-52.0) L Mean Corpuscular Volume 91 FL (80-99) 93 FL (80-99) Mean Corpuscular Hemoglobin 32.6 PG (27.0-31.0) H 32.6 PG (27.0-31.0) H Mean Corpuscular Hemoglobin Concent 36.0 G/DL (32.0-36.0) 35.1 G/DL (32.0-36.0) Red Cell Distribution Width 12.1 % (11.6-14.8) 12.1 % (11.6-14.8) Platelet Count 150 K/UL (150-450) 140 K/UL (150-450) L Mean Platelet Volume 6.7 FL (6.5-10.1) 6.1 FL (6.5-10.1) L Neutrophils (%) (Auto) 63.2 % (45.0-75.0) 55.7 % (45.0-75.0) Lymphocytes (%) (Auto) 27.8 % (20.0-45.0) 34.5 % (20.0-45.0) Monocytes (%) (Auto) 7.1 % (1.0-10.0) 7.6 % (1.0-10.0) Eosinophils (%) (Auto) 1.2 % (0.0-3.0) 1.2 % (0.0-3.0) Basophils (%) (Auto) 0.7 % (0.0-2.0) 0.9 % (0.0-2.0) Prothrombin Time 14.0 SEC (9.30-11.50) H Prothromb Time International Ratio 1.3 (0.9-1.1) H Activated Partial Thromboplast Time 29 SEC (23-33) Sodium Level 137 MMOL/L (136-145) 141 MMOL/L (136-145) Potassium Level 2.8 MMOL/L (3.5-5.1) L 3.5 MMOL/L (3.5-5.1) Chloride Level 104 MMOL/L (98-107) 107 MMOL/L (98-107) Carbon Dioxide Level 23 MMOL/L (21-32) 27 MMOL/L (21-32) Anion Gap 10 mmol/L (5-15) 7 mmol/L (5-15) Blood Urea Nitrogen 7 mg/dL (7-18) 9 mg/dL (7-18) Creatinine 0.6 MG/DL (0.55-1.30) 0.7 MG/DL (0.55-1.30) Estimat Glomerular Filtration Rate mL/min (>60) mL/min (>60) Glucose Level 93 MG/DL (74-106) 87 MG/DL (74-106) Calcium Level 7.8 MG/DL (8.5-10.1) L 8.0 MG/DL (8.5-10.1) L Total Bilirubin 1.3 MG/DL (0.2-1.0) H 1.4 MG/DL (0.2-1.0) H Direct Bilirubin 0.4 MG/DL (0.0-0.3) H 0.5 MG/DL (0.0-0.3) H Aspartate Amino Transf (AST/SGOT) 76 U/L (15-37) H 74 U/L (15-37) H Alanine Aminotransferase (ALT/SGPT) 61 U/L (12-78) 60 U/L (12-78) Alkaline Phosphatase 66 U/L (46-116) 59 U/L (46-116) Total Protein 6.8 G/DL (6.4-8.2) 6.9 G/DL (6.4-8.2) Albumin 2.2 G/DL (3.4-5.0) L 2.2 G/DL (3.4-5.0) L Globulin 4.6 g/dL 4.7 g/dL Albumin/Globulin Ratio 0.5 (1.0-2.7) L 0.5 (1.0-2.7) L Lipase 223 U/L (73-393) Height (Feet): 5 Height (Inches): 11.00 Weight (Pounds): 105 Medications Current Medications Medications (Trade) Dose Ordered Sig/Darinel Route PRN Reason Start Time Stop Time Status Last Admin Dose Admin Dextrose (Dextrose 50%) 25 ml Q30M PRN IV Hypoglycemia 09/21/18 19:15 10/21/18 19:14 Dextrose (Dextrose 50%) 50 ml Q30M PRN IV Hypoglycemia 09/21/18 19:15 10/21/18 19:14 Dextrose/ Electrolytes 1,000 ml @ 50 mls/hr Q20H IV 09/21/18 22:30 10/21/18 22:29 09/21/18 22:49 Heparin Sodium (Porcine) (Heparin 5000 units/ml) 5,000 units EVERY 12 HOURS SUBQ 09/21/18 21:00 10/21/18 20:59 Levetiracetam (Keppra) 500 mg EVERY 12 HOURS ORAL 09/21/18 21:00 10/21/18 20:59 09/22/18 09:44 Lorazepam (Ativan 2mg/ml 1ml) 0.5 mg Q4H PRN IV For Anxiety 09/21/18 19:15 09/28/18 19:14 Methadone HCl (Methadone HCl) 10 mg Q8H PRN ORAL Sever Pain(7-10) 09/21/18 20:45 09/28/18 20:44 Morphine Sulfate (Morphine Sulfate) 1 mg Q4H PRN IVP Moderate Pain(4-6) 09/21/18 20:45 09/28/18 19:14 Ondansetron HCl (Zofran) 4 mg Q6H PRN IVP Nausea & Vomiting 09/21/18 19:15 10/21/18 19:14 Assessment/Plan Problem List: (1) Metastatic 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 ICD Codes: C79.31 - Secondary malignant neoplasm of brain SNOMED: 09455495 (2) Acute encephalopathy ICD Codes: G93.40 - Encephalopathy, unspecified SNOMED: 56186415, 516715577 (3) Hepatitis C ICD Codes: B19.20 - Hepatitis C SNOMED: 03654783 (4) Liver cirrhosis ICD Codes: K74.60 - Unspecified cirrhosis of liver SNOMED: 64622483 (5) Thrombocytopenia ICD Codes: D69.6 - Thrombocytopenia SNOMED: 031877398 (6) Portal hypertension ICD Codes: K76.6 - Portal hypertension SNOMED: 83418915 (7) Alcohol Abuse (8) Seizure disorder ICD Codes: G40.909 - Seizure disorder SNOMED: 985796965 Assessment/Plan Trial of IV steroids symptomatic treatment swallow evaluation comfort care aspiration precaution. D/W public guardian about the need for comfort care. Pradeep Saavedra MD Sep 22, 2018 11:42
[2018-09-22 12:00] VITALS: BP 108/63
[2018-09-22 12:31] LABS: APPEARANCE,URINE SLIGHTLY CLOUDY; BILIRUBIN, URINE NEGATIVE (NEGATIVE); GLUCOSE, URINE (UA) NEGATIVE (NEGATIVE); KETONES,URINE 1+ (NEGATIVE); LEUKOCYTE ESTERASE ,URINE 3+ (NEGATIVE); NITRITE,URINE NEGATIVE (NEGATIVE); PH,URINE 6.5 (4.5-8.0); PROTEIN,URINE 1+ (NEGATIVE); UROBILINOGEN,URINE 8 MG/DL (0.0-1.0)
[2018-09-22 12:50] LABS: COLOR,URINE YELLOW
--- NOTE | 2018-09-22 12:51 | History & Physical ---
History and Physical History & Physicial Dictated for Int Med-Dr Hunt no. [id number]. Aldo Ruiz MD Sep 22, 2018 12:51
--- NOTE | 2018-09-22 13:06 | General Progress Note ---
Progress Note Progress Note Bioethics Committee At the request of the social services analyst Chanda Roper a bioethics consult was provided for this patient at 1 pm 09/22/2018. In attendance were RUKHSANA Pettit and Pradeep Saavedra MD. He is under a court ordered conservatorship by the Public Guardian's office. I examined the patient. He was previously alcoholic and homeless. He is now a long-term skilled nursing patient and is now hospitalized with cancer of unclear origin with extensive brain metastases. It is the sense of the Committee that his condition is not curable, that further aggressive care would be futile and that natural would be the best outcome. Do Not Resuscitate/Do not Intubate status with comfort based care status would be completely appropriate in this case. Feeding by mouth for oral gratification is the most reasonable course of action. Referral to hospice would also be appropriate. MD Johan Evans Michael S. MD Sep 22, 2018 13:06
--- NOTE | 2018-09-22 14:31 | NUR ---
RD ASSESSMENT & RECOMMENDATIONS SEE CARE ACTIVITY FOR COMPLETE ASSESSMENT DAILY ESTIMATED NEEDS: Needs based on Undereweight, CA, 47.5kg 30-35kcal/kg kcals/kg 1349-2336 total kcals 1-1.5g/kg g protein/kg 48-72 g total protein 25-30ml/kg mL/kg 6245-5025 total fluid mLs NUTRITION DIAGNOSIS: 1) Underweight status R/T clinical condition, inadequate energy intake MEDICAL RECORD ASSISTANT as evidenced by dx of metastatic dx of brain, 71% IBW, low BMI per guidelines CURRENT DIET:NPO PO DIET RECOMMENDATIONS: REGULAR/ texture per TECHNICAL BUSINESS SYSTEMS ANALYST ADDITIONAL RECOMMENDATIONS: * Calibrated bedscale wt for accurate CBW * Ensure Enlive TID w/ meals * Monitor PO intake and tolerance closely w/ diet initiation .
--- NOTE | 2018-09-22 14:52 | NUR ---
*-* INSURANCE *-* ALL CLINICALS AND REVIEWS HAVE BEEN FAXED TO: JOSE DAVID Chen:[phone] REF#[id number]
--- NOTE | 2018-09-22 15:00 | NUR ---
NURSE NOTES: Patient is resting in bed. No signs of distress noted.
[2018-09-22 16:00] VITALS: BP 95/63
--- NOTE | 2018-09-22 17:25 | NUR ---
Social Service Note Patient under public guardian. Public Guardian visited patient at bedside. Due to patient's medical condition Dr. Saavedra is requesting DNR/DNI and hospice care. SW and Public Guardian discussed the process. Patient is to remain full code until documentation (4 page physician statement, medical records and bioethics consult) is reviewed. Code status change may be approved pending approval for hospice. Dr. Saavedra aware. Bioethics meeting completed. YOSI left 4 page physician statement in patient's chart for Dr. Saavedra to complete. Will monitor and follow up.
[2018-09-22] MEDS: D5 1/2NS w/KCl 40meq 1000ml 1,000 ML IV SCH (18:50)
--- NOTE | 2018-09-22 19:16 | NUR ---
NURSE NOTES: Report received from Chandan Anderson RN. Pt is resting in bed in stable condition. Pt is awake and oriented x1, very combative and resistive to care. Pt is on room air and breathing is even and unlabored. No acute distress noted. IV site is L FA #20g and is asymptomatic, patent, and intact and running IV fluids at rx rate. Bed is in lowest position with brake engaged, side rails up x3, and bed alarm on. Call light and side table placed within reach. Will continue to monitor.
--- NOTE | 2018-09-22 19:16 | NUR ---
HAND-OFF: Report given to DANIKA Hollins.
[2018-09-22 20:00] VITALS: BP 116/79
--- NOTE | 2018-09-22 20:00 | NUR ---
NURSE NOTES: Lateral aspect of L foot - x1 spots with non-blanchable redness noted. Skin is closed. Lateral aspect of R foot - x1 spot with non-blanchable redness noted. Skin is closed. Sites cleansed with NS, skin barrier cavilon film applied to all sites, optifoam applied for precautionary measures. Optifoam and skin barrier cavilon film applied to all bony prominences. Continuing with care of turning pt at least Q2HR and PRN as tolerated. Pt kept clean and dry. Wound care orders initiated per protocol. Will notify primary MD.
--- NOTE | 2018-09-22 22:00 | History and Physical Report ---
DATE OF ADMISSION: 09/21/2018 CHIEF COMPLAINT: The patient is a 73-year-old male, who presents with a chief complaint of "failed swallow evaluation." HISTORY OF PRESENT ILLNESS: The patient is a resident of [facility]. The patient apparently was recently admitted to [facility] on 09/05/2018. The patient was diagnosed with pericardial effusion. The patient had a swallow evaluation at that time. To be on tube feedings. The patient presented to [facility] emergency room. The patient failed swallow evaluation at the [facility]. The patient was referred to [facility] for malnutrition. The patient is admitted for failure to thrive. The patient denies fever, chills, or nausea. It was recommended that the patient be on tube feedings at that time. The patient presented to [facility] emergency room. The patient was admitted for severe protein malnutrition for PEG evaluation. REVIEW OF SYSTEMS: Unable to assess secondary to the patient's mental status. PAST MEDICAL HISTORY: Significant for, 1. Hepatitis C. 2. Cirrhosis of liver. 3. Chronic obstructive pulmonary disease. 4. Seizure disorder. 5. Pericardial effusion. PAST SURGICAL HISTORY: The patient denies. CURRENT MEDICATIONS: 1. Tylenol 650 mg p.o. q.4 hours p.r.n. 2. Cranberry tablets 2 tablets p.o. daily. 3. Docusate 100 mg p.o. twice daily. 4. Cymbalta 30 mg p.o. daily. 5. Folic acid 1 mg p.o. daily. 6. Heparin 5000 units subcutaneously twice daily. 7. Hydrocodone/acetaminophen 10/325 mg one tablet p.o. q.4 hours p.r.n. 8. Lactulose 30 mL p.o. twice daily. 9. Keppra 500 mg p.o. twice daily. 10. Ativan 1 mg p.o. q.6 hours p.r.n. 11. Milk of magnesia 30 mL p.o. at bedtime. 12. Methadone 10 mg p.o. q.8 hours. 13. Mirtazapine 15 mg p.o. at bedtime. 14. Multivitamin one tablet p.o. daily. 15. Zofran 4 mg p.o. q.6 hours p.r.n. 16. MiraLax 17 g p.o. daily. 17. Zantac 150 mg p.o. twice daily. 18. Restoril 15 mg p.o. at bedtime. 19. Vitamin B complex one tablet p.o. daily. 20. Ambien 5 mg p.o. at bedtime. ALLERGIES: No known drug allergies. SOCIAL HISTORY: The patient is single and is a resident of [facility]. The patient denies tobacco or alcohol use. PHYSICAL EXAMINATION: VITAL SIGNS: Temperature 98.8, respirations 17, pulse 71, and blood pressure 106/66. GENERAL: The patient is thin-appearing, frail white male, in no apparent distress. HEENT: Eyes, pupils are equal and responsive to light and accommodation. Extraocular movements are intact. NECK: Supple without lymphadenopathy. CHEST: Lungs are clear to auscultation bilaterally without wheezes or rales. CARDIOVASCULAR: Regular rhythm and rate. S1 and S2 are normal without murmurs, rubs, or gallops. ABDOMEN: Soft, nontender, nondistended. Positive bowel sounds. No evidence of hepatosplenomegaly. Currently, no rebound or guarding noted. EXTREMITIES: Negative for clubbing, cyanosis, or edema. RECTAL/GENITAL: Refused. NEUROLOGIC: Cranial nerves II through XII are grossly intact without focal deficits. Motor strength is 5/5 bilaterally. Deep tendon reflexes are 2+ plantar. LABORATORY STUDIES: WBC 4.5, hemoglobin 13.5, hematocrit 37.6, and platelets 150,000. Sodium 137, potassium 3.8, chloride 104, CO2 23, BUN 7, creatinine 0.6, and glucose 93. Liver function tests mildly elevated with a total bilirubin of 1.3, direct bilirubin of 0.4. AST elevated at 76. Urinalysis is pending. A chest x-ray was reported as bilateral interstitial and airspace edema. A CT scan of the brain revealed extensive right-sided cerebral vasogenic edema, an extensive left-sided cerebral vasogenic edema suggestive of metastases versus primary malignancy. ASSESSMENT: This is a 73-year-old white male. 1. Dysphagia. 2. Brain masses. 3. Hepatitis C. 4. Cirrhosis of the liver. 5. Chronic obstructive pulmonary disease. 6. Seizure disorder. 7. Pericardial effusion. TREATMENT: 1. Dysphagia. A Gastroenterology consultation has been obtained with Dr. Shaayn Goodrich. The patient will have a percutaneous endoscopic gastrostomy evaluation. A calorie count is pending. A swallow evaluation is pending. 2. Hepatitis C/cirrhosis as above. A Gastroenterology consultation has been obtained with Dr. Shayan Goodrich. 3. Chronic obstructive pulmonary disease. A Pulmonary consultation has been obtained with Dr. Pradeep Saavedra. 4. Seizure disorder. 5. Pericardial effusion. Aldo Ruiz M.D. DR: CURTIS JOB#: [id number] CC:
[2018-09-23] VITALS: BP 107/69
--- NOTE | 2018-09-23 02:00 | NUR ---
NURSE NOTES: IV site is infiltrated. IV fluids stopped and disconnected. Multiple nurses attempted to insert new IV. Pt combative and resistive to care. Unable to place IV at this time. Will try again later and notify
[2018-09-23 04:00] VITALS: BP 134/80
--- NOTE | 2018-09-23 05:00 | NUR ---
NURSE NOTES: IV site replaced in R hand #24g. Asymptomatic, patent, and intact. IV fluids restarted at rx rate.
--- NOTE | 2018-09-23 07:18 | NUR ---
HAND-OFF: Report given to Deo Morris RN. Pt is resting in bed in stable condition. No acute distress noted. Endorsed plan of care.
[2018-09-23 07:30] LABS: BASOPHILS % (AUTO) 0.7 % (0.0-2.0); EOSINOPHILS % (AUTO) 0.7 % (0.0-3.0); HEMATOCRIT 40.3 % (42.0-52.0); HEMOGLOBIN 14.6 G/DL (14.2-18.0); LYMPHOCYTES % (AUTO) 23.3 % (20.0-45.0); MEAN CORPUSCULAR VOLUME 91 FL (80-99); MONOCYTES % (AUTO) 6.7 % (1.0-10.0); NEUTROPHILS % (AUTO) 68.7 % (45.0-75.0); PLATELET COUNT 153 K/UL (150-450); RED BLOOD COUNT 4.41 M/UL (4.70-6.10); RED CELL DISTRIBUTION WIDTH 12.4 % (11.6-14.8); WHITE BLOOD COUNT 6.7 K/UL (4.8-10.8)
--- NOTE | 2018-09-23 07:35 | NUR ---
NURSE NOTES: pt awake alert, confused. call light within reach. no distress. bed in lowest position, locked. will monitor.
[2018-09-23 07:58] LABS: ANION GAP 11 mmol/L (5-15); BLOOD UREA NITROGEN 7 mg/dL (7-18); CALCIUM 8.5 MG/DL (8.5-10.1); CARBON DIOXIDE 22 MMOL/L (21-32); CHLORIDE 106 MMOL/L (98-107); CREATININE 0.7 MG/DL (0.55-1.30); POTASSIUM 3.4 MMOL/L (3.5-5.1); SODIUM 139 MMOL/L (136-145)
[2018-09-23 08:00] VITALS: BP 111/80
[2018-09-23] MEDS: Heparin 5000 units/ml inj SUBQ SCH ×2 (08:46→20:49)
--- NOTE | 2018-09-23 11:32 | NUR ---
CASE MANAGEMENT:REVIEW 09/23/18 SI: DYSPHAGIA 97.2 91 17 111/80 95% ON RA K-3.4 IS: IVF@50/HR HEPARIN SQ Q12 KEPPRA PO Q12 : TELEMETRY STATUS DCP: FROM [facility]ITA PLAN: GI EVAL FOR PEG
--- NOTE | 2018-09-23 11:37 | NUR ---
*-* INSURANCE *-* ALL CLINICALS HAVE BEEN FAXED TO: JOSE DAVID Chen:[phone] REF#[id number]
--- NOTE | 2018-09-23 11:41 | Pulmonology Progress Note ---
Assessment/Plan Problems: (1) Metastatic 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 (2) Acute encephalopathy (3) Hepatitis C (4) Liver cirrhosis (5) Thrombocytopenia (6) Portal hypertension (7) Alcohol Abuse (8) Seizure disorder Assessment/Plan comfort measures oral feeding for comfort Public guardian decision pending about hospice I filled out the forms. Subjective ROS Limited/Unobtainable: No Interval Events: awake. looks comfortable Constitutional: Reports: no symptoms Allergies: Coded Allergies: No Known Allergies (Verified , 08/24/12) Objective Last 24 Hour Vital Signs Date Time Temp Pulse Resp B/P (MAP) Pulse Ox O2 Delivery O2 Flow Rate FiO2 09/23/18 08:00 97.2 91 17 111/80 (90) 95 09/23/18 07:57 89 09/23/18 07:13 Room Air 09/23/18 04:00 99 09/23/18 04:00 97.2 108 17 134/80 (98) 95 09/23/18 00:00 98.9 90 17 107/69 (82) 97 09/23/18 00:00 88 09/22/18 21:00 Room Air 09/22/18 20:00 98.6 95 17 116/79 (91) 97 09/22/18 20:00 85 09/22/18 16:00 98.5 83 18 95/63 (74) 95 09/22/18 15:48 86 09/22/18 12:00 98.3 79 18 108/63 (78) 96 Intake and Output 09/22/18 09/23/18 19:00 07:00 Intake Total 50 ml Output Total 150 ml Balance -100 ml IV Total 50 ml Output Urine Total 150 ml # Voids 1 2 # Bowel Movements 1 General Appearance: cachetic HEENT: normocephalic, atraumatic Respiratory/Chest: chest wall non-tender, lungs clear Cardiovascular: normal peripheral pulses, normal rate Abdomen: normal bowel sounds, soft, non tender Genitourinary: normal external genitalia Extremities: no clubbing Neurologic/Psychiatric: filter press pumper 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 normal Microbiology Date/Time Source Procedure Growth Status 09/21/18 18:45 Nasal Nares MRSA Culture - Final NO METHICILLIN RESISTANT STAPH AUREUS... Complete 09/22/18 12:22 Urine,Clean Catch Urine Culture - Preliminary Gram Negative Bacillus 1 Resulted 09/21/18 18:45 Rectum VRE Culture - Final Enterococcus Faecium - Vre Resulted 09/21/18 18:45 Rectum Pending Resulted Laboratory Tests 09/22/18 12:22: Urine Color Yellow, Urine Appearance Slightly cloudy, Urine pH 6.5, Urine Specific [place] 1.015, Urine Protein 1+H, Urine Glucose (UA) Negative, Urine Ketones 1+H, Urine Blood 1+H, Urine Nitrite Negative, Urine Bilirubin Negative, Urine Urobilinogen 8H, Urine Leukocyte Esterase 3+H, Urine RBC 0-2H, Urine WBC 30-40H, Urine Squamous Epithelial Cells Occasional, Urine Bacteria ManyH 09/23/18 05:26: White Blood Count 6.7, Red Blood Count 4.41L, Hemoglobin 14.6, Hematocrit 40.3L , Mean Corpuscular Volume 91, Mean Corpuscular Hemoglobin 33.1H, Mean Corpuscular Hemoglobin Concent 36.2H, Red Cell Distribution Width 12.4, Platelet Count 153, Mean Platelet Volume 6.7, Neutrophils (%) (Auto) 68.7, Lymphocytes (%) (Auto) 23.3, Monocytes (%) (Auto) 6.7, Eosinophils (%) (Auto) 0.7, Basophils (%) (Auto) 0.7, Sodium Level 139, Potassium Level 3.4L, Chloride Level 106, Carbon Dioxide Level 22, Anion Gap 11, Blood Urea Nitrogen 7, Creatinine 0.7, Estimat Glomerular Filtration Rate , Glucose Level 77, Calcium Level 8.5 Current Medications Medications (Trade) Dose Ordered Sig/Darinel Route PRN Reason Start Time Stop Time Status Last Admin Dose Admin Dextrose (Dextrose 50%) 25 ml Q30M PRN IV Hypoglycemia 09/21/18 19:15 10/21/18 19:14 Dextrose (Dextrose 50%) 50 ml Q30M PRN IV Hypoglycemia 09/21/18 19:15 10/21/18 19:14 Dextrose/ Electrolytes 1,000 ml @ 50 mls/hr Q20H IV 09/21/18 22:30 10/21/18 22:29 09/22/18 18:50 Heparin Sodium (Porcine) (Heparin 5000 units/ml) 5,000 units EVERY 12 HOURS SUBQ 09/21/18 21:00 10/21/18 20:59 Levetiracetam (Keppra) 500 mg EVERY 12 HOURS ORAL 09/21/18 21:00 10/21/18 20:59 09/23/18 08:46 Lorazepam (Ativan 2mg/ml 1ml) 0.5 mg Q4H PRN IV For Anxiety 09/21/18 19:15 09/28/18 19:14 Methadone HCl (Methadone HCl) 10 mg Q8H PRN ORAL Sever Pain(7-10) 09/21/18 20:45 09/28/18 20:44 Morphine Sulfate (Morphine Sulfate) 1 mg Q4H PRN IVP Moderate Pain(4-6) 09/21/18 20:45 09/28/18 19:14 Ondansetron HCl (Zofran) 4 mg Q6H PRN IVP Nausea & Vomiting 09/21/18 19:15 10/21/18 19:14 Pradeep Saavedra MD Sep 23, 2018 11:41
[2018-09-23 12:00] VITALS: BP 103/74
--- NOTE | 2018-09-23 12:35 | NUR ---
SWALLOW/SPEECH THERAPY NOTE: SEE SWALLOW EVAL IN ST CARE ACTIVITY SECTION REFERRED BY DR CAZARES (DR BALTAZAR PRIMARY DR BROWN PLACED PT NPO EXCEPT ICE CHIPS/MEDS) DYSPHAGIA RECOMMENDATIONS FOR THIS 73 Y.O.M: ACUTE FTT, SEVERE MALNUTRITION (PROTEIN-CALORIE), WEAK, DEHYDRATED LUNGS Bilateral interstitial and airspace edema Possible left pleural effusion BUT 09/05 AT [facility] HAD PNA (R LUNG AND POSS LEFT) H/O DYSPHAGIA, FUNCTIONAL QUADRIPLEGIA, PSYCH ISSUES (ANXIETY, AGITATION, SCHIZOPHRENIA), SEPSIS AND PNA RECENT 08/2018, FTT, HEP C, MESA GRANDE, COPD, SZ, RESP D/O, CARDIAC PACEMAKER, ALCOHOL CIRRHOSIS, SZ D/O, MEDS: KEPPRA, METHADONE, MORPHINE, ATIVAN, ZOFRAN AT [facility]: ST DIAGNOSED HIM WITH 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 ST RECOMMENDED NPO AND NONORAL FEEDINGS WITH PO TRIALS WITH ST ONLY. NO MODIFIED BARIUM SWALLOW STUDY COMPLETED AT THAT TIME. REFUSED MANY PO TRIALS. POLST STATED OK ZIGZAGGER TUBE FEEDINGS OK BUT PER DIETITIAN NOTE ON 09/22/18 BIOETHICS COMMITTEE MEETING AND IT WAS DECIDED THAT PATIENT WOULD HAVE PO FOR COMFORT FEEDING AND NO NONORAL FEEDINGS METHODS FOR QUALITY OF LIFE PURPOSES. HOSPICE REFERRAL MADE. PER [facility] RD: REG TYPE DIET PER TEXTURE AND SEND ENSURE ENLIVE TID WITH MEALS. PATIENT IS CURRENTLY NPO EXCEPT MEDS/ICE CHIPS (NOT GIVEN) ONLY ONE TOOTH SEEN SO MOSTLY EDENTULOUS, ABLE TO EXPRESS SOME WORDS MOSTLY EXPLETIVES WHEN HE GETS AGITATED. ROOM AIR. INITIAL IMPRESSIONS: LIMITED EVAL SINCE HE REFUSES MASTICATED SOLIDS AND SIPS VIA CUP (TRIES TO STRIKE OUT AT OR SWEAR IN ANGER) S/S OF A QUESTIONABLE DEGREE OF OROPHARYNGEAL DYSPHAGIA MILD-MOD INCREASE IN ORAL PREP AND OROPHARYNGEAL TRANSIT TIMES WITH TSP THIN AND NECTAR THICK LIQUIDS AND PUREED WITH FAIR HYOLARYNGEAL EXCURSION DID NOT ALLOW FOR ORAL INSPECTION AT TIMES NO OVERT S/S OF ASPIRATION BUT HAS SILENT ASPIRATION RISK AND HAS EXTRA SWALLOW AT TIMES WITH PUREED INITIALLY SPIT OUT THE THIN LIQUID TRIAL AND BECAME VERY AGITATED WHEN ST TRIED TO GIVE HIM LIQUID VIA CUP/STRAW. RECOMMENDATIONS: MOD BARIUM SWALLOW STUDY TO FURTHER ASSESS SWALLOW, DETERMINE SILENT ASP RISK, AND ATTEMPT TRIAL TX ONLY IF RECEPTIVE IF PO GIVEN FOR COMFORT FEEDING AND QUALITY OF LIFE PURPOSES, CONSIDER GIVING HIM LIQUIFIED PUREED LIKE NECTAR THICK LIQUIDS NO THIN LIQUIDS VIA TSP ONLY AND 1 TO 1 FEEDING WITH POSTED ASPIRATION PRECAUTIONS. PER RD SEND ENSURE ENLIVE TID WITH MEALS AND REG TYPE DIET DYSPHAGIA MANAGEMENT/TX AND EDUCATED STAFF (DANIKA RITTER) IN POSTED ASP PREC COG-COM EVAL/TX FOR COM TIPS ONLY WILL LEAVE MESSAGE WITH PUBLIC GUARDIAN AND MD Addendum: 09/23/18 at 1242 by SENTHIL MARIEE ON FUNCTIONAL ORAL INTAKE SCALE LEVEL 4 TOTAL INTAKE OF A SINGLE CONSISTENCY (SINCE ON COMFORT FEEDING ONLY)
--- NOTE | 2018-09-23 14:39 | NUR ---
Social Service Note YOSI faxed request to [facility] [phone] (p) [phone] (f) for DNR/DNI/Hospice services. Faxed received. Pending review and authorization. Will continue to monitor and follow up. YOSI discussed with Dr. Saavedra
[2018-09-23] MEDS: D5 1/2NS w/KCl 40meq 1000ml 1,000 ML IV SCH (14:51)
[2018-09-23 16:00] VITALS: BP 109/76
--- NOTE | 2018-09-23 18:05 | Cardiology Report ---
APPROVED REPORT EKG Measurement Heart [id number] SC [id number] Sinus rhythm with premature atrial complexes Left anterior fascicular block Septal infarct, age undetermined Abnormal ECG
--- NOTE | 2018-09-23 18:18 | Internal Med Progress Note ---
Subjective Date of Service: Sep 23, 2018 Physician Name Aldo Ruiz Attending Physician Damaso Hunt MD Current Medications Medications (Trade) Dose Ordered Sig/Darinel Route PRN Reason Start Time Stop Time Status Last Admin Dose Admin Dextrose (Dextrose 50%) 25 ml Q30M PRN IV Hypoglycemia 09/21/18 19:15 10/21/18 19:14 Dextrose (Dextrose 50%) 50 ml Q30M PRN IV Hypoglycemia 09/21/18 19:15 10/21/18 19:14 Dextrose/ Electrolytes 1,000 ml @ 50 mls/hr Q20H IV 09/21/18 22:30 10/21/18 22:29 09/23/18 14:51 Heparin Sodium (Porcine) (Heparin 5000 units/ml) 5,000 units EVERY 12 HOURS SUBQ 09/21/18 21:00 10/21/18 20:59 Levetiracetam (Keppra) 500 mg EVERY 12 HOURS ORAL 09/21/18 21:00 10/21/18 20:59 09/23/18 08:46 Lorazepam (Ativan 2mg/ml 1ml) 0.5 mg Q4H PRN IV For Anxiety 09/21/18 19:15 09/28/18 19:14 Methadone HCl (Methadone HCl) 10 mg Q8H PRN ORAL Sever Pain(7-10) 09/21/18 20:45 09/28/18 20:44 Morphine Sulfate (Morphine Sulfate) 1 mg Q4H PRN IVP Moderate Pain(4-6) 09/21/18 20:45 09/28/18 19:14 Ondansetron HCl (Zofran) 4 mg Q6H PRN IVP Nausea & Vomiting 09/21/18 19:15 10/21/18 19:14 Allergies: Coded Allergies: No Known Allergies (Verified , 08/24/12) ROS Limited/Unobtainable: No Constitutional: Reports: no symptoms HEENT: Reports: no symptoms Cardiovascular: Reports: no symptoms Respiratory: Reports: no symptoms Gastrointestinal/Abdominal: Reports: no symptoms Genitourinary: Reports: no symptoms Neurologic/Psychiatric: Reports: no symptoms Subjective 73 YO M admitted with dysphagia and brain masses. Cover for Int Shahid-Dr Hunt Objective Last Vital Signs Date Time Temp Pulse Resp B/P (MAP) Pulse Ox O2 Delivery O2 Flow Rate FiO2 09/23/18 16:00 98.0 76 17 109/76 (87) 95 09/23/18 07:13 Room Air Laboratory Tests Test 09/23/18 05:26 White Blood Count 6.7 K/UL (4.8-10.8) Red Blood Count 4.41 M/UL (4.70-6.10) L Hemoglobin 14.6 G/DL (14.2-18.0) Hematocrit 40.3 % (42.0-52.0) L Mean Corpuscular Volume 91 FL (80-99) Mean Corpuscular Hemoglobin 33.1 PG (27.0-31.0) H Mean Corpuscular Hemoglobin Concent 36.2 G/DL (32.0-36.0) H Red Cell Distribution Width 12.4 % (11.6-14.8) Platelet Count 153 K/UL (150-450) Mean Platelet Volume 6.7 FL (6.5-10.1) Neutrophils (%) (Auto) 68.7 % (45.0-75.0) Lymphocytes (%) (Auto) 23.3 % (20.0-45.0) Monocytes (%) (Auto) 6.7 % (1.0-10.0) Eosinophils (%) (Auto) 0.7 % (0.0-3.0) Basophils (%) (Auto) 0.7 % (0.0-2.0) Sodium Level 139 MMOL/L (136-145) Potassium Level 3.4 MMOL/L (3.5-5.1) L Chloride Level 106 MMOL/L (98-107) Carbon Dioxide Level 22 MMOL/L (21-32) Anion Gap 11 mmol/L (5-15) Blood Urea Nitrogen 7 mg/dL (7-18) Creatinine 0.7 MG/DL (0.55-1.30) Estimat Glomerular Filtration Rate mL/min (>60) Glucose Level 77 MG/DL (74-106) Calcium Level 8.5 MG/DL (8.5-10.1) Microbiology Date/Time Source Procedure Growth Status 09/21/18 18:45 Nasal Nares MRSA Culture - Final NO METHICILLIN RESISTANT STAPH AUREUS... Complete 09/22/18 12:22 Urine,Clean Catch Urine Culture - Preliminary Gram Negative Bacillus 1 Resulted 4/9/19 18:45 Rectum VRE Culture - Final Enterococcus Faecium - Vre Resulted 09/21/18 18:45 Rectum Pending Resulted Intake and Output 09/22/18 09/23/18 19:00 07:00 Intake Total 50 ml Output Total 150 ml Balance -100 ml IV Total 50 ml Output Urine Total 150 ml # Voids 1 2 # Bowel Movements 1 Objective PHYSICAL EXAMINATION: GENERAL: The patient is thin-appearing, frail white male, in no apparent distress. HEENT: Eyes, pupils are equal and responsive to light and accommodation. Extraocular movements are intact. NECK: Supple without lymphadenopathy. CHEST: Lungs are clear to auscultation bilaterally without wheezes or rales. CARDIOVASCULAR: Regular rhythm and rate. S1 and S2 are normal without murmurs, rubs, or gallops. ABDOMEN: Soft, nontender, nondistended. Positive bowel sounds. No evidence of hepatosplenomegaly. Currently, no rebound or guarding noted. EXTREMITIES: Negative for clubbing, cyanosis, or edema. RECTAL/GENITAL: Refused. NEUROLOGIC: Cranial nerves II through XII are grossly intact without focal deficits. Motor strength is 5/5 bilaterally. Deep tendon reflexes are 2+ plantar. Assessment/Plan Problem List: (1) Acute encephalopathy (2) Liver cirrhosis (3) Hepatitis C (4) Seizure disorder Assessment & Plan: Continue keppra (5) Metastatic 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 Assessment & Plan: See bioethics note. (6) UTI (lower urinary tract infection) Assessment & Plan: Gram neg ed-await ID and sens. Continue ceftriaxone (7) DNR (do not resuscitate) Status: not improved Aldo Ruiz MD Sep 23, 2018 18:18
--- NOTE | 2018-09-23 19:07 | NUR ---
NURSE NOTES: Report received from Deo Morris RN. Pt is resting in bed in stable condition. Pt is awake, alert, and oriented x2. Pt is on room air and breathing is even and unlabored. No acute distress noted. IV site is asymptomatic, patent, and intact. Bed is in lowest position with brake engaged, side rails up x3, and bed alarm on. Call light and side table placed within reach. Will continue to monitor.
--- NOTE | 2018-09-23 19:07 | NUR ---
HAND-OFF: Report given to BRIDGETT DANIKA.
[2018-09-23 20:00] VITALS: BP 121/88
[2018-09-23] MEDS ORDERED: cefTRIAXone 1 GM in D5W 55 ML IVPB SCH (20:00)
[2018-09-24] VITALS: BP 101/70
[2018-09-24 04:00] VITALS: BP 119/68
[2018-09-24 06:31] LABS: BASOPHILS % (AUTO) 0.8 % (0.0-2.0); HEMATOCRIT 39.3 % (42.0-52.0); HEMOGLOBIN 13.8 G/DL (14.2-18.0); MEAN CORPUSCULAR VOLUME 93 FL (80-99); MONOCYTES % (AUTO) 7.3 % (1.0-10.0); NEUTROPHILS % (AUTO) 59.8 % (45.0-75.0); PLATELET COUNT 156 K/UL (150-450); RED BLOOD COUNT 4.22 M/UL (4.70-6.10); RED CELL DISTRIBUTION WIDTH 12.9 % (11.6-14.8); WHITE BLOOD COUNT 6.8 K/UL (4.8-10.8)
--- NOTE | 2018-09-24 07:20 | NUR ---
HAND-OFF: Report given to Chandan Bates RN. Pt is resting in bed in stable condition. No acute distress noted. Endorsed plan of care.
--- NOTE | 2018-09-24 07:54 | NUR ---
NURSE NOTES: Pt in bed in low position with HOB in semi fowlers, bed alarm on, call light at bedside, pt Ox2 with confusion, IV site patent and asymptomatic, pt was stated to have episodes of being combative, skin intact and to look out for heels and sacral area, breakfast at bedside, pt denies pain, no s/s of distress or sob noted.
[2018-09-24 08:00] VITALS: BP 95/66
[2018-09-24 08:08] LABS: ANION GAP 9 mmol/L (5-15); BLOOD UREA NITROGEN 8 mg/dL (7-18); CALCIUM 8.4 MG/DL (8.5-10.1); CARBON DIOXIDE 24 MMOL/L (21-32); CHLORIDE 107 MMOL/L (98-107); CREATININE 0.7 MG/DL (0.55-1.30); POTASSIUM 4.3 MMOL/L (3.5-5.1); SODIUM 140 MMOL/L (136-145)
[2018-09-24] MEDS: Heparin 5000 units/ml inj SUBQ SCH ×2 (08:51→22:38)
--- NOTE | 2018-09-24 09:24 | NUR ---
CASE MANAGEMENT:REVIEW 09/24/18 SI: DYSPHAGIA 97.8 103 18 95/66 95 % ON RA H/H-13.8/39.3 CA-8.4 IS: IV ROCEPHIN Q24 IVF@50/HR HEPARIN SQ Q12 KEPPRA PO Q12 : TELEMETRY STATUS DCP: FROM [facility] PLAN: GI [facility]RE[facility] FOR PEG
--- NOTE | 2018-09-24 11:32 | Pulmonology Progress Note ---
Assessment/Plan Problems: (1) Metastatic 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 (2) Acute encephalopathy (3) Hepatitis C (4) Liver cirrhosis (5) Thrombocytopenia (6) Portal hypertension (7) Alcohol Abuse (8) Seizure disorder Assessment/Plan comfort measures oral feeding for comfort Public guardian decision pending about hospice I filled out the forms. awaiting public guardian report Subjective ROS Limited/Unobtainable: No Constitutional: Reports: no symptoms HEENT: Repors: no symptoms Allergies: Coded Allergies: No Known Allergies (Verified , 08/24/12) Objective Last 24 Hour Vital Signs Date Time Temp Pulse Resp B/P (MAP) Pulse Ox O2 Delivery O2 Flow Rate FiO2 09/24/18 08:17 Room Air 09/24/18 08:00 97.8 103 18 95/66 (76) 95 09/24/18 07:32 95 09/24/18 04:00 91 09/24/18 04:00 97.0 91 17 119/68 (85) 95 09/24/18 00:00 93 09/24/18 00:00 98.1 93 17 101/70 (80) 96 09/23/18 21:00 Room Air 09/23/18 20:00 98.9 96 17 121/88 (99) 95 09/23/18 20:00 82 09/23/18 16:00 98.0 76 17 109/76 (87) 95 09/23/18 15:04 93 09/23/18 12:00 97.6 84 17 103/74 (84) 95 09/23/18 11:56 93 Intake and Output 09/23/18 09/24/18 19:00 07:00 Intake Total 600 ml Balance 600 ml IV Total 200 ml Other 400 ml # Voids 2 # Bowel Movements 1 Objective General Appearance: cachetic HEENT: normocephalic, atraumatic Respiratory/Chest: chest wall non-tender, lungs clear Cardiovascular: normal peripheral pulses, normal rate Abdomen: normal bowel sounds, soft, non tender Genitourinary: normal external genitalia Extremities: no clubbing Neurologic/Psychiatric: solution specialist 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 normal General Appearance: WD/WN, no acute distress Microbiology Date/Time Source Procedure Growth Status 09/21/18 18:45 Nasal Nares MRSA Culture - Final NO METHICILLIN RESISTANT STAPH AUREUS... Complete 09/22/18 12:22 Urine,Clean Catch Urine Culture - Final Klebsiella Pneumoniae Complete 09/21/18 18:45 Rectum VRE Culture - Final Enterococcus Faecium - Vre Complete 09/21/18 18:45 Rectum - Final NO CARBAPENEM-RESISTANT ENTEROBACTERI... Complete Laboratory Tests 09/24/18 05:27: White Blood Count 6.8, Red Blood Count 4.22L, Hemoglobin 13.8L, Hematocrit 39.3L , Mean Corpuscular Volume 93, Mean Corpuscular Hemoglobin 32.6H, Mean Corpuscular Hemoglobin Concent 35.0, Red Cell Distribution Width 12.9, Platelet Count 156, Mean Platelet Volume 6.8, Neutrophils (%) (Auto) 59.8, Lymphocytes (% ) (Auto) 31.0, Monocytes (%) (Auto) 7.3, Eosinophils (%) (Auto) 1.0, Basophils ( %) (Auto) 0.8, Sodium Level 140, Potassium Level 4.3, Chloride Level 107, Carbon Dioxide Level 24, Anion Gap 9, Blood Urea Nitrogen 8, Creatinine 0.7, Estimat Glomerular Filtration Rate , Glucose Level 94, Calcium Level 8.4L Current Medications Medications (Trade) Dose Ordered Sig/Darinel Route PRN Reason Start Time Stop Time Status Last Admin Dose Admin Ceftriaxone Sodium 1 gm/ Dextrose 55 ml @ 110 mls/hr Q24H IVPB 09/23/18 20:00 09/30/18 19:59 09/23/18 20:41 Dextrose (Dextrose 50%) 25 ml Q30M PRN IV Hypoglycemia 09/21/18 19:15 10/21/18 19:14 Dextrose (Dextrose 50%) 50 ml Q30M PRN IV Hypoglycemia 09/21/18 19:15 10/21/18 19:14 Dextrose/ Electrolytes 1,000 ml @ 50 mls/hr Q20H IV 09/21/18 22:30 10/21/18 22:29 09/23/18 14:51 Heparin Sodium (Porcine) (Heparin 5000 units/ml) 5,000 units EVERY 12 HOURS SUBQ 09/21/18 21:00 10/21/18 20:59 09/24/18 08:51 Levetiracetam (Keppra) 500 mg EVERY 12 HOURS ORAL 09/21/18 21:00 10/21/18 20:59 09/24/18 08:50 Lorazepam (Ativan 2mg/ml 1ml) 0.5 mg Q4H PRN IV For Anxiety 09/21/18 19:15 09/28/18 19:14 Methadone HCl (Methadone HCl) 10 mg Q8H PRN ORAL Sever Pain(7-10) 09/21/18 20:45 09/28/18 20:44 Morphine Sulfate (Morphine Sulfate) 1 mg Q4H PRN IVP Moderate Pain(4-6) 09/21/18 20:45 09/28/18 19:14 Ondansetron HCl (Zofran) 4 mg Q6H PRN IVP Nausea & Vomiting 09/21/18 19:15 10/21/18 19:14 Pradeep Saavedra MD Sep 24, 2018 11:32
[2018-09-24 12:00] VITALS: BP 95/59
--- NOTE | 2018-09-24 12:22 | NUR ---
SWALLOW/SPEECH THERAPY NOTE: SUBJECTIVE: PATIENT NOT SPEAKING TO ST NOR GESTURING. PATIENT SMILED AT ST AND AGREED TO PO TRIALS. PATIENT IS MAKING GESTURES OF THE MIDDLE FINGER AT HER AND GETS ANGRY AT TIMES. OBJECTIVE/ASSESSMENT: UNABLE TO COMPLETED MODIFIED BARIUM SWALLOW STUDY TODAY DUE TO SCHEDULE CONFLICTS. PER OFFAL SEPARATOR, EDUCATED/TRAINED NEW OFFAL SEPARATOR (CHRISTIAN) IN POSTED ASPIRATION PRECAUTIONS WITH PUREED AND NECTAR THICK LIQUIDS. PER OFFAL SEPARATOR, PATIENT IS SELF-FEEDING AND AND INTAKE IS ADEQUATE W/O OVERT S/S OF ASPIRATION (09/21/18 CXR NO INFILTRATES). PLAN: MODIFIED BARIUM SWALLOW STUDY NEXT WEEK OR OP IF D/C CONTINUE WITH DYSPHAGIA MANAGEMENT/TX PLAN OF CARE IN SWALLOW EVALUATION REPORT FOR NOW. CONTINUE WITH CURRENT PUREED/NECTAR THICK LIQUIDS WITH POSTED ASPIRATION PRECAUTIONS FOR NOW. PATIENT NON-COMPLIANT IN LEARNING ASPIRATION PRECAUTIONS, SWALLOWING STRATEGIES, AND SWALLOW EXERCISES (TO BE NOTED POST MOD BARIUM SWALLOW STUDY). SPEECH EVAL ORDER SIGNED BUT PATIENT NOT VERBALIZING NOW, WILL ATTEMPT EVAL NEXT WEEK OR IN DISCHARGE SETTING FOR COMMUNICATION TIPS MOSTLY. D/W RN (LUIS) AND PATIENT SP
--- NOTE | 2018-09-24 13:59 | NUR ---
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
--- NOTE | 2018-09-24 14:23 | NUR ---
*-* INSURANCE *-* ALL CLINICALS HAVE BEEN FAXED TO: JOSE DAVID Chen:[phone] REF#[id number]
[2018-09-24 16:00] VITALS: BP 112/77
[2018-09-24] MEDS ORDERED: Morphine Sulfate 2mg/ml Inj(IV/IM USE ONLY) IVP PRN (16:00)
[2018-09-24] MEDS ORDERED: LORazepam Inj 2mg/ml 1ml IV PRN (16:00)
[2018-09-24] MEDS: D5 1/2NS w/KCl 40meq 1000ml 1,000 ML IV SCH (16:00)
--- NOTE | 2018-09-24 16:48 | NUR ---
NURSE NOTES: RECEIVED PATIENT A/A/OX1, NONVERBAL. FLAT AFFECT. CONTRACTED UPPER/LOWER. SKIN IS ASSESSED AND INTACT. REPORT GIVEN BY LUIS/HEMANT. NO PERSONAL BELONGINGS NOTED. IV PATENT AND INTACT. IVF INFUSING WELL. WILL CONT TO MONITOR.
--- NOTE | 2018-09-24 17:02 | NUR ---
Social Service Note SW received confirmation from the public guardian's office for patient to be DNR/DNI/COMFORT-FOCUSED CARE, NO ARTIFICIAL MEANS OF NUTRITION AND HOSPICE. YOSI informed Dr. Saavedra. Documents faxed to nursing station.
--- NOTE | 2018-09-24 18:00 | Internal Med Progress Note ---
Subjective Physician Name Damaso Hunt Attending Physician Damaso Hunt MD Current Medications Medications (Trade) Dose Ordered Sig/Darinel Route PRN Reason Start Time Stop Time Status Last Admin Dose Admin Ceftriaxone Sodium 1 gm/ Dextrose 55 ml @ 110 mls/hr Q24H IVPB 09/24/18 20:00 09/30/18 19:59 Dextrose (Dextrose 50%) 25 ml Q30M PRN IV Hypoglycemia 09/24/18 16:15 10/21/18 19:14 Dextrose (Dextrose 50%) 50 ml Q30M PRN IV Hypoglycemia 09/24/18 16:15 10/21/18 19:14 Dextrose/ Electrolytes 1,000 ml @ 50 mls/hr Q20H IV 09/24/18 16:00 10/21/18 22:29 Heparin Sodium (Porcine) (Heparin 5000 units/ml) 5,000 units EVERY 12 HOURS SUBQ 09/24/18 21:00 10/21/18 20:59 Levetiracetam (Keppra) 500 mg EVERY 12 HOURS ORAL 09/24/18 21:00 10/21/18 20:59 Lorazepam (Ativan 2mg/ml 1ml) 0.5 mg Q4H PRN IV For Anxiety 09/24/18 16:00 09/28/18 15:59 Methadone HCl (Methadone HCl) 10 mg Q8H PRN ORAL Sever Pain(7-10) 09/24/18 16:00 09/28/18 15:59 Morphine Sulfate (Morphine Sulfate) 1 mg Q4H PRN IVP Moderate Pain(4-6) 09/24/18 16:00 09/28/18 15:59 Ondansetron HCl (Zofran) 4 mg Q6H PRN IVP Nausea & Vomiting 09/24/18 16:00 10/21/18 15:59 Allergies: Coded Allergies: No Known Allergies (Verified , 08/24/12) Subjective Patient is awake, responding, not communicative, no acute distress. Objective Last Vital Signs Date Time Temp Pulse Resp B/P (MAP) Pulse Ox O2 Delivery O2 Flow Rate FiO2 09/24/18 16:00 98.0 92 18 112/77 (89) 95 09/24/18 08:17 Room Air Laboratory Tests Test 09/24/18 05:27 White Blood Count 6.8 K/UL (4.8-10.8) Red Blood Count 4.22 M/UL (4.70-6.10) L Hemoglobin 13.8 G/DL (14.2-18.0) L Hematocrit 39.3 % (42.0-52.0) L Mean Corpuscular Volume 93 FL (80-99) Mean Corpuscular Hemoglobin 32.6 PG (27.0-31.0) H Mean Corpuscular Hemoglobin Concent 35.0 G/DL (32.0-36.0) Red Cell Distribution Width 12.9 % (11.6-14.8) Platelet Count 156 K/UL (150-450) Mean Platelet Volume 6.8 FL (6.5-10.1) Neutrophils (%) (Auto) 59.8 % (45.0-75.0) Lymphocytes (%) (Auto) 31.0 % (20.0-45.0) Monocytes (%) (Auto) 7.3 % (1.0-10.0) Eosinophils (%) (Auto) 1.0 % (0.0-3.0) Basophils (%) (Auto) 0.8 % (0.0-2.0) Sodium Level 140 MMOL/L (136-145) Potassium Level 4.3 MMOL/L (3.5-5.1) Chloride Level 107 MMOL/L (98-107) Carbon Dioxide Level 24 MMOL/L (21-32) Anion Gap 9 mmol/L (5-15) Blood Urea Nitrogen 8 mg/dL (7-18) Creatinine 0.7 MG/DL (0.55-1.30) Estimat Glomerular Filtration Rate mL/min (>60) Glucose Level 94 MG/DL (74-106) Calcium Level 8.4 MG/DL (8.5-10.1) L Microbiology Date/Time Source Procedure Growth Status 09/21/18 18:45 Nasal Nares MRSA Culture - Final NO METHICILLIN RESISTANT STAPH AUREUS... Complete 09/22/18 12:22 Urine,Clean Catch Urine Culture - Final Klebsiella Pneumoniae Complete 09/21/18 18:45 Rectum VRE Culture - Final Enterococcus Faecium - Vre Complete 09/21/18 18:45 Rectum - Final NO CARBAPENEM-RESISTANT ENTEROBACTERI... Complete Intake and Output 09/23/18 09/24/18 19:00 07:00 Intake Total 600 ml Balance 600 ml IV Total 200 ml Other 400 ml # Voids 2 # Bowel Movements 1 Objective General: No acute distress, awake and alert HEENT: NCAT, sclera anicteric, PERRL, EOMI. Neck: Supple, no significant jugular venous distention, Lungs: Fair inspiratory effort, decreased air at the bases, no Wheeze or Rales. Heart: Regular rate and rhythm, normal S1/S2, no murmurs Abdomen: soft, nontender, nondistended. Normoactive bowel sounds. : Saul Cath. Extremities: No Cyanosis , clubbing or edema. Neuro: A&O x 1, Able to move all extremities slowly. Assessment/Plan Assessment/Plan (1) Metastatic 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 (2) Acute encephalopathy (3) Hepatitis C (4) Liver cirrhosis (5) Thrombocytopenia (6) Portal hypertension (7) Alcohol Abuse (8) Seizure disorder (9) Klebsiella pneumonia UTI. Plan: Antibiotics: Rocephin. Transferred to medical floor. CODE STATUS is DNR/do not intubated. Consider palliative care consult/hospice. Monitor laboratory as well as culture. DVT prophylaxis SCD Damaso Hunt MD Sep 24, 2018 18:00
--- NOTE | 2018-09-24 19:17 | NUR ---
HAND-OFF: Report given to Maye.
--- NOTE | 2018-09-24 19:18 | NUR ---
NURSE NOTES: Pt received in bed in lowest position, call light within reach, IV in place, condom catheter on, will continue to monitor.
[2018-09-24 20:00] VITALS: BP 94/63
[2018-09-24] MEDS ORDERED: cefTRIAXone 1 GM in D5W 55 ML IVPB SCH (20:00)
[2018-09-25] VITALS: BP 108/85
[2018-09-25 04:00] VITALS: BP 82/55
--- NOTE | 2018-09-25 07:35 | NUR ---
HAND-OFF: Report given to DANIKA Zendejas.
[2018-09-25 08:06] VITALS: BP 110/57
[2018-09-25] MEDS: Heparin 5000 units/ml inj SUBQ SCH (08:34)
[2018-09-25 12:00] VITALS: BP 93/56
[2018-09-25] MEDS: D5 1/2NS w/KCl 40meq 1000ml 1,000 ML IV SCH (12:00)
--- NOTE | 2018-09-25 14:13 | NUR ---
CASE MANAGEMENT: DCPNOTE PER MD ORDER PATIENT TO BE TRANSFERRED BACK TO [facility] [phone] ROOM # [id number] TRANSPORTATION [facility]IA [facility] [id number] ETA [id number]
--- NOTE | 2018-09-25 14:40 | NUR ---
NURSE NOTES: CALLED REPORT TO MARIE Pearson [facility]. ATTEMPTED TO CALL PUBLIC GUARDIAN, NOT ABLE TO LEAVE A MSG. NO PERSONAL BELONGINGS NOTED. WILL CONT TO MONITOR.
[2018-09-25 16:00] VITALS: BP 94/66
--- NOTE | 2018-09-25 16:13 | Internal Med Progress Note ---
Subjective Physician Name Damaso Hunt Attending Physician Damaso Hunt MD Current Medications Medications (Trade) Dose Ordered Sig/Darinel Route PRN Reason Start Time Stop Time Status Last Admin Dose Admin Ceftriaxone Sodium 1 gm/ Dextrose 55 ml @ 110 mls/hr Q24H IVPB 09/24/18 20:00 09/30/18 19:59 09/24/18 22:36 Dextrose (Dextrose 50%) 25 ml Q30M PRN IV Hypoglycemia 09/24/18 16:15 10/21/18 19:14 Dextrose (Dextrose 50%) 50 ml Q30M PRN IV Hypoglycemia 09/24/18 16:15 10/21/18 19:14 Dextrose/ Electrolytes 1,000 ml @ 50 mls/hr Q20H IV 09/24/18 16:00 10/21/18 22:29 09/24/18 16:00 Heparin Sodium (Porcine) (Heparin 5000 units/ml) 5,000 units EVERY 12 HOURS SUBQ 09/24/18 21:00 10/21/18 20:59 09/25/18 08:34 Levetiracetam (Keppra) 500 mg EVERY 12 HOURS ORAL 09/24/18 21:00 10/21/18 20:59 09/25/18 08:32 Lorazepam (Ativan 2mg/ml 1ml) 0.5 mg Q4H PRN IV For Anxiety 09/24/18 16:00 09/28/18 15:59 Methadone HCl (Methadone HCl) 10 mg Q8H PRN ORAL Sever Pain(7-10) 09/24/18 16:00 09/28/18 15:59 Morphine Sulfate (Morphine Sulfate) 1 mg Q4H PRN IVP Moderate Pain(4-6) 09/24/18 16:00 09/28/18 15:59 Ondansetron HCl (Zofran) 4 mg Q6H PRN IVP Nausea & Vomiting 09/24/18 16:00 10/21/18 15:59 Allergies: Coded Allergies: No Known Allergies (Verified , 08/24/12) Subjective Patient is awake, responding, not communicative, no acute distress. Objective Last Vital Signs Date Time Temp Pulse Resp B/P (MAP) Pulse Ox O2 Delivery O2 Flow Rate FiO2 09/25/18 12:00 97.7 84 20 93/56 (68) 92 09/25/18 09:00 Room Air Intake and Output 09/24/18 09/25/18 19:00 07:00 Intake Total 600 ml Output Total 1000 ml Balance 600 ml -1000 ml Intake Oral 600 ml Output Urine Total 1000 ml # Voids 2 # Bowel Movements 3 Objective General: No acute distress, awake and alert HEENT: NCAT, sclera anicteric, PERRL, EOMI. Neck: Supple, no significant jugular venous distention, Lungs: Fair inspiratory effort, decreased air at the bases, no Wheeze or Rales. Heart: Regular rate and rhythm, normal S1/S2, no murmurs Abdomen: soft, nontender, nondistended. Normoactive bowel sounds. : Saul Cath. Extremities: No Cyanosis , clubbing or edema. Neuro: A&O x 1, Able to move all extremities slowly. Assessment/Plan Assessment/Plan (1) Metastatic 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 (2) Acute encephalopathy (3) Hepatitis C (4) Liver cirrhosis (5) Thrombocytopenia (6) Portal hypertension (7) Alcohol Abuse (8) Seizure disorder (9) Klebsiella pneumonia UTI. Plan: Antibiotics: Rocephin. CODE STATUS is DNR/do not intubated. Consider palliative care consult/hospice. Monitor laboratory as well as culture. DVT prophylaxis SCD Damaso Hunt MD Sep 25, 2018 16:13
--- NOTE | 2018-09-25 17:00 | NUR ---
NURSE NOTES: stool sample for cdiff collected and sent to lab. d/c to [facility]. removed heplock and in stable condition. afebrile. no personal belongings noted. will cont to monitor.
--- NOTE | 2018-09-25 17:12 | Pulmonology Progress Note ---
Assessment/Plan Problems: (1) Metastatic 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 (2) Acute encephalopathy (3) Hepatitis C (4) Liver cirrhosis (5) Thrombocytopenia (6) Portal hypertension (7) Alcohol Abuse (8) Seizure disorder Assessment/Plan comfort measures oral feeding for comfort Public guardian decision pending about hospice I filled out the forms. awaiting public guardian report awaiting for hospice care Subjective ROS Limited/Unobtainable: Yes Allergies: Coded Allergies: No Known Allergies (Verified , 08/24/12) Objective Last 24 Hour Vital Signs Date Time Temp Pulse Resp B/P (MAP) Pulse Ox O2 Delivery O2 Flow Rate FiO2 09/25/18 16:00 97.5 94 18 94/66 (75) 94 09/25/18 12:00 97.7 84 20 93/56 (68) 92 09/25/18 09:00 Room Air 09/25/18 08:06 97.6 91 20 110/57 (74) 95 09/25/18 04:00 98.2 99 18 82/55 (64) 97 09/25/18 00:00 98.0 102 18 108/85 (93) 95 09/24/18 21:00 Room Air 09/24/18 20:00 98.4 90 18 94/63 (73) 97 Intake and Output 09/24/18 09/25/18 19:00 07:00 Intake Total 600 ml Output Total 1000 ml Balance 600 ml -1000 ml Intake Oral 600 ml Output Urine Total 1000 ml # Voids 2 # Bowel Movements 3 Objective General Appearance: cachetic HEENT: normocephalic, atraumatic Respiratory/Chest: chest wall non-tender, lungs clear Cardiovascular: normal peripheral pulses, normal rate Abdomen: normal bowel sounds, soft, non tender Genitourinary: normal external genitalia Extremities: no clubbing Neurologic/Psychiatric: 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 normal Current Medications Medications (Trade) Dose Ordered Sig/Darinel Route PRN Reason Start Time Stop Time Status Last Admin Dose Admin Ceftriaxone Sodium 1 gm/ Dextrose 55 ml @ 110 mls/hr Q24H IVPB 09/24/18 20:00 09/30/18 19:59 09/24/18 22:36 Dextrose (Dextrose 50%) 25 ml Q30M PRN IV Hypoglycemia 09/24/18 16:15 10/21/18 19:14 Dextrose (Dextrose 50%) 50 ml Q30M PRN IV Hypoglycemia 09/24/18 16:15 10/21/18 19:14 Dextrose/ Electrolytes 1,000 ml @ 50 mls/hr Q20H IV 09/24/18 16:00 10/21/18 22:29 09/24/18 16:00 Heparin Sodium (Porcine) (Heparin 5000 units/ml) 5,000 units EVERY 12 HOURS SUBQ 09/24/18 21:00 10/21/18 20:59 09/25/18 08:34 Levetiracetam (Keppra) 500 mg EVERY 12 HOURS ORAL 09/24/18 21:00 10/21/18 20:59 09/25/18 08:32 Lorazepam (Ativan 2mg/ml 1ml) 0.5 mg Q4H PRN IV For Anxiety 09/24/18 16:00 09/28/18 15:59 Methadone HCl (Methadone HCl) 10 mg Q8H PRN ORAL Sever Pain(7-10) 09/24/18 16:00 09/28/18 15:59 Morphine Sulfate (Morphine Sulfate) 1 mg Q4H PRN IVP Moderate Pain(4-6) 09/24/18 16:00 09/28/18 15:59 Ondansetron HCl (Zofran) 4 mg Q6H PRN IVP Nausea & Vomiting 09/24/18 16:00 10/21/18 15:59 Pradeep Saavedra MD Sep 25, 2018 17:11
--- NOTE | 2018-09-28 08:25 | Discharge Summary ---
Discharge Summary Discharge Summary _ DATE OF ADMISSION: 09/21/2018 DATE OF DISCHARGE: 09/25/2018 DISCHARGED BY: Dr. Hunt REASON FOR ADMISSION: 73 years old male with history of hepatitis C, cirrhosis, psychosis, dementia, cachexia, alcohol abuse, snf resident, prior homeless, was recently hospitalized at another hospital for weight loss. Patient was found to have metastatic disease with metastasis to brain. Patient was transferred back to snf with IV fluids and request for comfort care. At this time patient transferred back to hospital for rapid decline and worsening of mental status. Nursing staff from the facility reported that patient failed swallow evaluation and was not able to have oral intake for several days. Laboratory workup revealed WBC 4.5, stable hemoglobin and hematocrit. Potassium 2.8. AST 76 Stable renal parameters and electrolytes. Total bili 1.3, direct bili 0.4. Albumin 2.2. Urinalysis revealed evidence of daily urinary tract infection. CT of the head demonstrated extensive right-sided cerebral vasogenic edema, less extensive left-sided cerebral vasogenic edema. There was suggestion of ill-defined masses in the right hemisphere and a more clearly defined mass in the left hemisphere. Given the multiplicity of findings , most likely due to metastatic disease. Multiple primary neoplasms or multifocal infection were also possible. There was significant mass effect, with 1.2 cm of [id number] midline shift, as well as evidence of trapping resulting in hydrocephalus of the right temporal horn and entire left lateral ventricle Chest x-ray revealed bilateral interstitial and airspace edema, possible left pleural effusion. In emergency department patient started on IV fluids and was admitted for further management. [facility]ULT[facility] pulmonary Dr. Saavedra bioethics committee Dr. Prado HOSPITAL COURSE: Patient admitted to medical surgical floor. Patient received trial of IV steroids. Pain management addressed. Symptomatic care provided. Supplemental oxygen provided as needed to keep pulse oximetry above 92%. Pulmonary toilet with was on board as needed. Bedside swallow evaluation revealed signs and symptoms of persistent oropharyngeal dysphagia. Speech therapist recommended video swallow evaluation, however for comfort feeding and quality of life recommended liquefied pured like nectar thick liquids, no thin liquids; via teaspoon only, one-to-one feeding with strict aspiration/reflux precaution. Seizure precaution maintained. Keppra continued. No evidence of seizure activity while in the hospital. Potassium was replaced, and prior to discharge 4.3. Patient started on empiric antibiotic for urinary tract infection. Urine culture revealed Klebsiella . Stool for C. difficile was negative. Bioethics committee meeting was requested by social work instructor and one of the attending physician. Patient under court-ordered conservatorship by the public guardian office. Patient with history of alcohol abuse and homeless prior. Patient currently residing in [facility] facility. Patient hospitalized with a cancer of unclear origin with extensive brain metastasis. Bioethics committee felt that this condition was not curable and further aggressive care would be futile. Bioethics committee recommended DNR/DNI status with comfort based care . Feeding by mouth for oral gratification was the most reasonable course of action. Referral to hospice would be also appropriate at this stage. DVT prophylaxis provided. Patient clinically stabilized and was ready transferred to back to [facility] facility for comfort care. FINAL DIAGNOSES: Metastatic 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 Acute encephalopathy Klebsiella pneumonia UTI Liver cirrhosis Hepatitis C Seizure disorder History of alcohol abuse DISCHARGE MEDICATIONS: See Medication Reconciliation list. DISCHARGE INSTRUCTIONS: Patient was discharged to the [facility] facility with recommendations for comfort care and hospice services. Follow up with medical doctor at the facility. I have been assigned to dictate discharge summary for this account. I was not involved in the patient's management. Phyllis Pelaez NP Sep 28, 2018 08:25
== END 2018-09-25 17:30 | DRG 41 ==
LOC: EDBD 13:26 → EMR 14:08 → 2E 15:10 → EDBEDREQSVC 15:49 → EDBEDREQ 15:49 → 4E 09-24 15:53
DX: C79.31 Secondary malignant neoplasm of brain (principal); E43 Unspecified severe protein-calorie malnutrition; G93.40 Encephalopathy, unspecified; K76.6 Portal hypertension; I31.3 Pericardial effusion (noninflammatory); D69.6 Thrombocytopenia, unspecified; Z68.1 Body mass index [BMI] 19.9 or less, adult; Z66 Do not resuscitate; B96.1 Klebsiella pneumoniae [K. pneumoniae] as the cause of diseases classified elsewhere; R13.10 Dysphagia, unspecified; C80.1 Malignant (primary) neoplasm, unspecified; F10.21 Alcohol dependence, in remission; E86.0 Dehydration; R64 Cachexia; F03.90 Unspecified dementia, unspecified severity, without behavioral disturbance, psychotic disturbance, mood disturbance, and anxiety; K70.30 Alcoholic cirrhosis of liver without ascites; N39.0 Urinary tract infection, site not specified; J44.9 Chronic obstructive pulmonary disease, unspecified; B19.20 Unspecified viral hepatitis C without hepatic coma; G40.909 Epilepsy, unspecified, not intractable, without status epilepticus
CPT/HCPCS: 36415; 70450; 71045; 80048; 80053; 80299; 81001; 82248; 83690; 85025; 85610; 85730; 87081; 87086; 87181; 87324; 93005; 96374; 99285; J8499

== ENCOUNTER 2018-11-20 20:16 | Inpatient (IN) | payer MEDICARE, MEDICAID ==
[~2018-11-20] VITALS: Ht 165.1 cm; Wt 68.0 kg
[2018-11-20 20:25] VITALS: BP 104/60
[2018-11-20] MEDS ORDERED: Albuterol/Ipratropium 3ml neb HHN ONE (20:30)
[2018-11-20 21:30] VITALS: BP 92/50
[2018-11-20 21:57] LABS: ANION GAP 10 mmol/L (5-15); BLOOD UREA NITROGEN 20 mg/dL (7-18); CALCIUM 8.7 MG/DL (8.5-10.1); CARBON DIOXIDE 26 MMOL/L (21-32); CHLORIDE 108 MMOL/L (98-107); CREATININE 1.1 MG/DL (0.55-1.30); POTASSIUM 4.1 MMOL/L (3.5-5.1); SODIUM 143 MMOL/L (136-145)
[2018-11-20] MEDS ORDERED: Miralax 17gm pkt ORAL PRN (22:00)
[2018-11-20] MEDS ORDERED: LORazepam Inj 2mg/ml 1ml IV PRN (22:00)
[2018-11-20] MEDS ORDERED: HYDROcodone/Acetamin 5/325 tab ORAL PRN (22:00)
[2018-11-20] MEDS ORDERED: Morphine Sulfate 2mg/ml Inj(IV/IM USE ONLY) IVP PRN (22:00)
[2018-11-20] MEDS ORDERED: Zolpidem 5mg tab ORAL PRN (22:00)
[2018-11-20 22:07] LABS: EOSINOPHILS % (AUTO) 1.1 % (0.0-3.0); HEMATOCRIT 42.8 % (42.0-52.0); HEMOGLOBIN 15.2 G/DL (14.2-18.0); LYMPHOCYTES % (AUTO) 12.8 % (20.0-45.0); MEAN CORPUSCULAR VOLUME 95 FL (80-99); MONOCYTES % (AUTO) 7.6 % (1.0-10.0); NEUTROPHILS % (AUTO) 77.4 % (45.0-75.0); PLATELET COUNT 129 K/UL (150-450); RED BLOOD COUNT 4.52 M/UL (4.70-6.10); RED CELL DISTRIBUTION WIDTH 12.6 % (11.6-14.8)
[2018-11-20 22:12] LABS: ALANINE AMINOTRANSFERASE 94 U/L (12-78); ALBUMIN 2.5 G/DL (3.4-5.0); ALBUMIN/GLOBULIN RATIO 0.4 (1.0-2.7); ALKALINE PHOSPHATASE 104 U/L (46-116); ASPARTATE AMINO TRANSFERASE 109 U/L (15-37); BILIRUBIN,TOTAL 0.7 MG/DL (0.2-1.0); CKMB 5.9 NG/ML (0.0-3.6); CREATINE KINASE 138 U/L (26-308); PHOSPHORUS 3.4 MG/DL (2.5-4.9)
--- NOTE | 2018-11-20 22:44 | Diagnostic Imaging Report ---
EXAM: XR Chest, 1 View CLINICAL HISTORY: SOB TECHNIQUE: Frontal view of the chest. COMPARISON: No relevant prior studies available. FINDINGS: Lungs: Near complete opacification of the right hemithorax is likely from combination of pleural and parenchymal disease. Bilateral pulmonary opacities, right greater than left. Could be edema and/or pneumonia. Underlying mass lesion not excluded. Retrocardiac atelectasis/consolidation. Pleural space: Bilateral pleural effusions, right greater than left. No pneumothorax. Heart: Large cardiac silhouette. Mediastinum: Unremarkable. Bones/joints: Probable old right rib fractures IMPRESSION: Near complete opacification of the right hemithorax is likely from combination of pleural and parenchymal disease. Bilateral pulmonary opacities, right greater than left. Could be edema and/or pneumonia. Underlying mass lesion not excluded.
--- NOTE | 2018-11-20 22:49 | Emergency Room Report ---
History of Present Illness General Chief Complaint: Dyspnea/Respdistress Source: Patient Present Illness HPI Patient is a 73-year-old male sent in from nursing facility after increased respiratory distress and difficulty with respirations. Patient had prior history of cirrhosis as well as seizure disorder. He was noted to have a witnessed seizure at his facility lasting approximate 1 to 2 minutes. Patient noted to have increased shortness of breath. Allergies: Coded Allergies: No Known Allergies (Verified , 08/24/12) Patient History Past Medical History: see triage record Reviewed Nursing Documentation: PMH: Agreed; PSxH: Agreed Nursing Documentation-PMH Past Medical History: No History, Except For Hx Cancer: No - per [facility] records Hx Gastrointestinal Problems: No - CIRRHOSIS Hx Neurological Problems: Yes - Encephalopathy, convulsions Hx Seizures: Yes Review of Systems All Other Systems: negative except mentioned in HPI Physical Exam Vital Signs Date Time Temp Pulse Resp B/P (MAP) Pulse Ox O2 Delivery O2 Flow Rate FiO2 11/20/18 20:12 106 15 104/60 (75) 87 Non-Rebreather 11/20/18 20:38 100 Sp02 EP Interpretation: reviewed, normal General Appearance: Chronically Ill Head: atraumatic ENT: normal ENT inspection, hearing grossly normal, normal voice Neck: normal inspection, full range of motion, supple, no bony tend Respiratory: normal inspection, no retraction, accessory muscle use, crackles Cardiovascular #1: regular rate, rhythm, no edema Gastrointestinal: normal inspection, normal bowel sounds, non tender, soft, no guarding, no hernia Genitourinary: no CVA tenderness Musculoskeletal: decreased range of motion Neurologic: normal inspection, alert, responsive, speech normal Psychiatric: normal inspection, judgement/insight normal, mood/affect normal Skin: normal inspection, normal color, no rash Procedures Critical Care Time Critical Care Time Patient had a critical medical condition which untreated could potentially result in life or limb threatening injury. Total critical care time excluding procedures approximately 45 minutes. Medical Decision Making Diagnostic Impression: Primary Impression: Seizure disorder Additional Impressions: Respiratory distress Lactic acidosis Seizure ER Course Patient presented for shortness of breath. Differential included but was not limited to anemia, pneumonia, pneumothorax, myocardial infarction, pericardial effusion, congestive heart failure, acidosis because of complexity of patient's case laboratory testing and imaging studies were ordered. Patient was noted to have significant respiratory distress. He was also noted to be somewhat hypotensive. He started on IV fluids. Patient was noted to have prior armband which showed a DNR. Patient's Polst from 2016 was noted to show patient was full code.Patient was initially started on BiPAP due to respiratory distress. He was started on IV fluids. Chest x-ray 1 view read by radiology showed bilateral interstitial and airspace edema and possible left pleural effusionPatient was noted to be awake and alert after observation in the emergency department. He was EKG showed sinus tachycardia with a rate of 109. Patient was discussed with Dr. Hunt for inpatient management due to respiratory distress. Labs Test 11/20/18 21:23 11/20/18 21:48 White Blood Count 7.0 K/UL (4.8-10.8) Red Blood Count 4.52 M/UL (4.70-6.10) Hemoglobin 15.2 G/DL (14.2-18.0) Hematocrit 42.8 % (42.0-52.0) Mean Corpuscular Volume 95 FL (80-99) Mean Corpuscular Hemoglobin 33.6 PG (27.0-31.0) Mean Corpuscular Hemoglobin Concent 35.5 G/DL (32.0-36.0) Red Cell Distribution Width 12.6 % (11.6-14.8) Platelet Count 129 K/UL (150-450) Mean Platelet Volume 5.8 FL (6.5-10.1) Neutrophils (%) (Auto) 77.4 % (45.0-75.0) Lymphocytes (%) (Auto) 12.8 % (20.0-45.0) Monocytes (%) (Auto) 7.6 % (1.0-10.0) Eosinophils (%) (Auto) 1.1 % (0.0-3.0) Basophils (%) (Auto) 1.0 % (0.0-2.0) Sodium Level 143 MMOL/L (136-145) Potassium Level 4.1 MMOL/L (3.5-5.1) Chloride Level 108 MMOL/L (98-107) Carbon Dioxide Level 26 MMOL/L (21-32) Anion Gap 10 mmol/L (5-15) Blood Urea Nitrogen 20 mg/dL (7-18) Creatinine 1.1 MG/DL (0.55-1.30) Estimat Glomerular Filtration Rate mL/min (>60) Glucose Level 120 MG/DL (74-106) Lactic Acid Level 5.50 mmol/L (0.4-2.0) Calcium Level 8.7 MG/DL (8.5-10.1) Phosphorus Level 3.4 MG/DL (2.5-4.9) Magnesium Level 2.3 MG/DL (1.8-2.4) Total Bilirubin 0.7 MG/DL (0.2-1.0) Aspartate Amino Transf (AST/SGOT) 109 U/L (15-37) Alanine Aminotransferase (ALT/SGPT) 94 U/L (12-78) Alkaline Phosphatase 104 U/L (46-116) Total Creatine Kinase 138 U/L (26-308) Creatine Kinase MB 5.9 NG/ML (0.0-3.6) Creatine Kinase MB Relative Index 4.2 Troponin I 0.029 ng/mL (0.000-0.056) Pro-B-Type Natriuretic Peptide 6087 pg/mL (0-125) Total Protein 8.5 G/DL (6.4-8.2) Albumin 2.5 G/DL (3.4-5.0) Globulin 6.0 g/dL Albumin/Globulin Ratio 0.4 (1.0-2.7) Arterial Blood pH 7.440 (7.350-7.450) Arterial Blood Partial Pressure CO2 29.8 mmHg (35.0-45.0) Arterial Blood Partial Pressure O2 94.5 mmHg (75.0-100.0) Arterial Blood HCO3 19.8 mmol/L (22.0-26.0) Arterial Blood Oxygen Saturation 97.2 % (95-100) Arterial Blood Base Excess -3.0 (-2-2) Grey Test Positive Last Vital Signs Date Time Temp Pulse Resp B/P (MAP) Pulse Ox O2 Delivery O2 Flow Rate FiO2 11/20/18 22:33 104 28 100 Facial 100 11/20/18 20:12 104/60 (75) Status: improved Disposition: ADMITTED INPATIENT Condition: Critical Referrals: NON PHYSICIAN (PCP) Salvatore Luna MD Nov 20, 2018 22:49
[2018-11-20 23:00] VITALS: BP 89/55
[2018-11-21] VITALS (7 sets, daily range): BP systolic 90–121; BP diastolic 60–72
[2018-11-21 10:09] LABS: ALANINE AMINOTRANSFERASE 76 U/L (12-78); ALBUMIN/GLOBULIN RATIO 0.4 (1.0-2.7); ALKALINE PHOSPHATASE 79 U/L (46-116); ANION GAP 4 mmol/L (5-15); ASPARTATE AMINO TRANSFERASE 81 U/L (15-37); BILIRUBIN,TOTAL 0.6 MG/DL (0.2-1.0); BLOOD UREA NITROGEN 18 mg/dL (7-18); CALCIUM 8.1 MG/DL (8.5-10.1); CARBON DIOXIDE 28 MMOL/L (21-32); CHLORIDE 113 MMOL/L (98-107); CREATININE 0.8 MG/DL (0.55-1.30); POTASSIUM 3.8 MMOL/L (3.5-5.1); SODIUM 145 MMOL/L (136-145)
[2018-11-21] MEDS: Lactulose 20gm/30ml UDC ORAL SCH ×2 (10:12→21:00)
[2018-11-21 10:13] LABS: BASOPHILS % (AUTO) 0.8 % (0.0-2.0); EOSINOPHILS % (AUTO) 1.3 % (0.0-3.0); HEMATOCRIT 42.6 % (42.0-52.0); HEMOGLOBIN 14.3 G/DL (14.2-18.0); MEAN CORPUSCULAR VOLUME 99 FL (80-99); MONOCYTES % (AUTO) 13.2 % (1.0-10.0); NEUTROPHILS % (AUTO) 61.7 % (45.0-75.0); PLATELET COUNT 103 K/UL (150-450); RED CELL DISTRIBUTION WIDTH 12.8 % (11.6-14.8); WHITE BLOOD COUNT 4.5 K/UL (4.8-10.8)
[2018-11-21] MEDS: Heparin 5000 units/ml inj SUBQ SCH ×2 (10:15→21:00)
--- NOTE | 2018-11-21 14:39 | Consultation ---
History of Present Illness General Date patient seen: Nov 21, 2018 Chief Complaint: Dyspnea/Respdistress Present Illness HPI 73-year-old male with hx of liver cirrhosis, Hepatitis C, metastatic cancer with mets to brain, seizures, alf resident, was sent in from nursing facility with CC of increased respiratory distress and difficulty with respirations. He was noted to have a witnessed seizure at his facility lasting approximate 1 to 2 minutes. Pt was in respiratory failure in ER and was started on BIPAP. Allergies: Coded Allergies: No Known Allergies (Verified , 08/24/12) Medication History Scheduled Cranberry Conc/C/Bacill Coag (Cranberry Tablet), 2 EACH PO DAILY, (Reported) Docusate Sodium (Docusate Sodium), 250 MG ORAL DAILY, (Reported) Docusate Sodium* (Colace*), 100 MG ORAL EVERY 12 HOURS, (Reported) Duloxetine Hcl* (Cymbalta*), 30 MG ORAL DAILY, (Reported) Folic Acid* (Folic Acid*), 1 MG ORAL DAILY, (Reported) Heparin Sod (Porcine) (Heparin Sodium*), 5,000 UNITS SUBQ EVERY 12 HOURS, ( Reported) Lactulose (Lactulose*), 30 ML ORAL EVERY 12 HOURS, (Reported) Levetiracetam (Keppra), 500 MG ORAL EVERY 12 HOURS, (Reported) Lorazepam* (Ativan*), 1 MG ORAL Q6HR, (Reported) Magnesium Hydroxide* (Milk Of Magnesia*), 30 ML ORAL DAILY, (Reported) Mirtazapine* (Mirtazapine*), 7.5 MG ORAL QHS Multivitamin (Multi-Vitamin Daily), 1 EACH PO DAILY, (Reported) Ranitidine Hcl* (Zantac*), 150 MG ORAL BID, (Reported) Ranitidine Hcl* (Ranitidine Hcl*), 150 MG PO DAILY, (Reported) Vitamin B Complex (B Complete), 100 MG ORAL DAILY, (Reported) [valporic acid], 250 PO EVERY 12 HOURS, (Reported) Scheduled PRN Acetaminophen (Acetaminophen), 650 MG ORAL Q6H PRN for Prn Headache/Temp > 101, (Reported) Acetaminophen (Tylenol), 650 MG ORAL Q6H PRN for For Pain, (Reported) Al Hydroxide/mg Hydroxide (Mag-Al Liquid), 30 ML ORAL Q6HR PRN for Abdominal cramps, (Reported) Hydrocodone Bit/Acetaminophen 10-325* (Magnolia 10-325*), 1 TAB ORAL Q4H PRN for For Pain, (Reported) Hydrocodone Bit/Acetaminophen 5-325* (Magnolia 5-325*), 1 TAB ORAL Q6HR PRN for For Pain, (Reported) Magnesium Hydroxide (Milk of Magnesia), 30 ML ORAL HS PRN for Constipation, ( Reported) Methadone Hcl* (Methadone*), 10 MG PO EVERY 8 HOURS PRN for For Pain, (Reported) Ondansetron (Zofran), 4 MG ORAL Q6H PRN for Nausea & Vomiting, (Reported) Polyethylene Glycol 3350* (Miralax*), 17 GM ORAL QHS PRN for Constipation, ( Reported) Temazepam* (Restoril*), 15 MG ORAL BEDTIME PRN for Insomnia, (Reported) Zolpidem Tartrate* (Ambien*), 5 MG ORAL BEDTIME PRN for Insomnia, (Reported) Patient History Healthcare decision maker Lucy Cavazos Resuscitation status Full Code Advanced Directive on File Past Medical/Surgical History Past Medical/Surgical History: (1) Metastatic 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 (2) Seizure (3) Hepatitis C (4) Liver cirrhosis (5) Portal hypertension (6) Psychosis Review of Systems All Other Systems: negative except mentioned in HPI Physical Exam General Appearance: cachetic, thin Lines, tubes and drains: peripheral HEENT: normocephalic, atraumatic Neck: non-tender, normal alignment Respiratory/Chest: lungs clear, normal breath sounds Breasts: no masses Cardiovascular/Chest: normal peripheral pulses, normal rate Abdomen: normal bowel sounds, soft Genitourinary/Rectal: normal genital exam Extremities: normal range of motion 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: secondary teacher 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 normal Last 24 Hour Vital Signs Date Time Temp Pulse Resp B/P (MAP) Pulse Ox O2 Delivery O2 Flow Rate FiO2 11/21/18 12:55 94 25 94 Facial 70 11/21/18 12:00 Bi-pap 11/21/18 12:00 100 11/21/18 12:00 90 11/21/18 12:00 97.7 90 21 90/60 (70) 100 11/21/18 10:45 84 22 100 Facial 70 11/21/18 08:56 92 22 100 Facial 70 11/21/18 08:00 97.9 96 20 121/72 (88) 100 11/21/18 08:00 100 11/21/18 08:00 93 11/21/18 08:00 Bi-pap 11/21/18 06:40 95 21 96 Facial 70 11/21/18 05:15 93 24 99 Facial 70 11/21/18 04:00 91 11/21/18 04:00 97.4 90 20 93/68 (76) 100 11/21/18 04:00 Bi-pap 11/21/18 04:00 100 11/21/18 03:15 89 21 98 Facial 80 11/21/18 01:44 92 11/21/18 01:30 97.5 89 24 92/66 (75) 100 11/21/18 01:10 Bi-pap 11/21/18 01:08 95.5 97 23 92/71 100 Bi-pap 10.0 100 11/21/18 00:45 91 20 100 Facial 100 11/21/18 00:30 95.5 97 21 92/66 100 Bi-pap 10.0 11/20/18 23:00 95.5 110 27 89/55 100 Bi-pap 10.0 11/20/18 22:33 104 28 100 Facial 100 11/20/18 21:30 95.5 113 23 92/50 99 Bi-pap 10.0 11/20/18 20:50 108 32 100 Bi-pap 100 11/20/18 20:41 109 34 98 Facial 100 11/20/18 20:39 109 34 97 Bi-pap 100 11/20/18 20:38 109 34 97 Bi-pap 100 11/20/18 20:25 106 15 Non-Rebreather 15.0 93 11/20/18 20:25 95.5 115 20 104/60 87 Non-Rebreather 15.0 11/20/18 20:12 106 15 104/60 (75) 87 Non-Rebreather Intake and Output 11/20/18 11/21/18 19:00 07:00 Intake Total 1000 ml Balance 1000 ml Intake Oral 0 ml IV Total 1000 ml # Voids 1 Laboratory Tests Test 11/20/18 21:23 11/20/18 21:48 11/20/18 23:01 11/21/18 09:06 White Blood Count 7.0 K/UL (4.8-10.8) 4.5 K/UL (4.8-10.8) L Red Blood Count 4.52 M/UL (4.70-6.10) L 4.30 M/UL (4.70-6.10) L Hemoglobin 15.2 G/DL (14.2-18.0) 14.3 G/DL (14.2-18.0) Hematocrit 42.8 % (42.0-52.0) 42.6 % (42.0-52.0) Mean Corpuscular Volume 95 FL (80-99) 99 FL (80-99) Mean Corpuscular Hemoglobin 33.6 PG (27.0-31.0) H 33.3 PG (27.0-31.0) H Mean Corpuscular Hemoglobin Concent 35.5 G/DL (32.0-36.0) 33.6 G/DL (32.0-36.0) Red Cell Distribution Width 12.6 % (11.6-14.8) 12.8 % (11.6-14.8) Platelet Count 129 K/UL (150-450) L 103 K/UL (150-450) L Mean Platelet Volume 5.8 FL (6.5-10.1) L 6.7 FL (6.5-10.1) Neutrophils (%) (Auto) 77.4 % (45.0-75.0) H 61.7 % (45.0-75.0) Lymphocytes (%) (Auto) 12.8 % (20.0-45.0) L 23.0 % (20.0-45.0) Monocytes (%) (Auto) 7.6 % (1.0-10.0) 13.2 % (1.0-10.0) H Eosinophils (%) (Auto) 1.1 % (0.0-3.0) 1.3 % (0.0-3.0) Basophils (%) (Auto) 1.0 % (0.0-2.0) 0.8 % (0.0-2.0) Sodium Level 143 MMOL/L (136-145) 145 MMOL/L (136-145) Potassium Level 4.1 MMOL/L (3.5-5.1) 3.8 MMOL/L (3.5-5.1) Chloride Level 108 MMOL/L (98-107) H 113 MMOL/L (98-107) H Carbon Dioxide Level 26 MMOL/L (21-32) 28 MMOL/L (21-32) Anion Gap 10 mmol/L (5-15) 4 mmol/L (5-15) L Blood Urea Nitrogen 20 mg/dL (7-18) H 18 mg/dL (7-18) Creatinine 1.1 MG/DL (0.55-1.30) 0.8 MG/DL (0.55-1.30) Estimat Glomerular Filtration Rate mL/min (>60) mL/min (>60) Glucose Level 120 MG/DL (74-106) H 94 MG/DL (74-106) Lactic Acid Level 5.50 mmol/L (0.4-2.0) H 5.30 mmol/L (0.66-2.22) H Calcium Level 8.7 MG/DL (8.5-10.1) 8.1 MG/DL (8.5-10.1) L Phosphorus Level 3.4 MG/DL (2.5-4.9) Magnesium Level 2.3 MG/DL (1.8-2.4) Total Bilirubin 0.7 MG/DL (0.2-1.0) 0.6 MG/DL (0.2-1.0) Aspartate Amino Transf (AST/SGOT) 109 U/L (15-37) H 81 U/L (15-37) H Alanine Aminotransferase (ALT/SGPT) 94 U/L (12-78) H 76 U/L (12-78) Alkaline Phosphatase 104 U/L (46-116) 79 U/L (46-116) Total Creatine Kinase 138 U/L (26-308) Creatine Kinase MB 5.9 NG/ML (0.0-3.6) H Creatine Kinase MB Relative Index 4.2 Troponin I 0.029 ng/mL (0.000-0.056) Pro-B-Type Natriuretic Peptide 6087 pg/mL (0-125) H Total Protein 8.5 G/DL (6.4-8.2) H 6.9 G/DL (6.4-8.2) Albumin 2.5 G/DL (3.4-5.0) L 2.0 G/DL (3.4-5.0) L Globulin 6.0 g/dL 4.9 g/dL Albumin/Globulin Ratio 0.4 (1.0-2.7) L 0.4 (1.0-2.7) L Arterial Blood pH 7.440 (7.350-7.450) Arterial Blood Partial Pressure CO2 29.8 mmHg (35.0-45.0) L Arterial Blood Partial Pressure O2 94.5 mmHg (75.0-100.0) Arterial Blood HCO3 19.8 mmol/L (22.0-26.0) L Arterial Blood Oxygen Saturation 97.2 % (95-100) Arterial Blood Base Excess -3.0 (-2-2) L Grey Test Positive Microbiology Date/Time Source Procedure Growth Status 11/20/18 23:55 Rectum Received Height (Feet): 5 Height (Inches): 5.00 Weight (Pounds): 150 Medications Current Medications Medications (Trade) Dose Ordered Sig/Darinel Route PRN Reason Start Time Stop Time Status Last Admin Dose Admin Acetaminophen (Tylenol) 650 mg Q4H PRN ORAL fever 11/20/18 22:00 12/20/18 21:59 Acetaminophen/ Hydrocodone Bitart (Magnolia 5/325) 1 tab Q6H PRN ORAL Moderate Pain (Pain Scale 4-6) 11/20/18 22:00 11/27/18 21:59 Dextrose (Dextrose 50%) STAT PRN IV Hypoglycemia 11/20/18 22:00 12/20/18 21:59 Heparin Sodium (Porcine) (Heparin 5000 units/ml) 5,000 units EVERY 12 HOURS SUBQ 11/21/18 09:00 12/21/18 08:59 11/21/18 10:15 Lactulose (Cephulac) 20 gm EVERY 12 HOURS ORAL 11/21/18 09:00 12/21/18 08:59 11/21/18 10:12 Levetiracetam (Keppra) 500 mg EVERY 12 HOURS ORAL 11/20/18 22:00 12/20/18 21:59 11/21/18 10:12 Lorazepam (Ativan 2mg/ml 1ml) 2 mg Q1H PRN IV seizures 11/20/18 22:00 11/27/18 21:59 Methadone HCl (Methadone HCl) 10 mg Q8H PRN ORAL Breakthrough Pain 11/20/18 22:00 11/27/18 21:59 Mirtazapine (Remeron) 7.5 mg QHS ORAL 11/20/18 22:00 12/20/18 21:59 Morphine Sulfate (Morphine Sulfate) 1 mg Q4H PRN IVP Severe Pain (Pain Scale 7-10) 11/20/18 22:00 11/27/18 21:59 Ondansetron HCl (Zofran) 4 mg Q6H PRN IVP Nausea & Vomiting 11/20/18 22:00 12/20/18 21:59 Polyethylene Glycol (Miralax) 17 gm HSPRN PRN ORAL Constipation 11/20/18 22:00 12/20/18 21:59 Zolpidem Tartrate (Ambien) 5 mg HSPRN PRN ORAL Insomnia 11/20/18 22:00 11/27/18 21:59 Assessment/Plan Problem List: (1) Acute respiratory failure ICD Codes: J96.00 - Acute respiratory failure, unspecified whether with hypoxia or hypercapnia SNOMED: 40936862 (2) Acute encephalopathy ICD Codes: G93.40 - Encephalopathy, unspecified SNOMED: 41213718, 692227730 (3) Metastatic 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 ICD Codes: C79.31 - Secondary malignant neoplasm of brain SNOMED: 85998985 (4) Seizure disorder ICD Codes: G40.909 - Seizure disorder SNOMED: 067295712 (5) Hepatitis C ICD Codes: B19.20 - Unspecified viral hepatitis C without hepatic coma SNOMED: 91222998 (6) Liver cirrhosis ICD Codes: K74.60 - Unspecified cirrhosis of liver SNOMED: 69962297 (7) Portal hypertension ICD Codes: K76.6 - Portal hypertension SNOMED: 67202664 (8) Psychosis ICD Codes: F29 - Psychosis SNOMED: 27824307 Respiratory: monitor respiratory rate, adjust FIO2 Cardiac: continue to monitor HR/BP Renal: F/U I&O Infectious Disease: check cultures Gastrointestinal: continue feedings/current rate Endocrine: monitor blood sugar, check HgA1C Neurologic: PRN Ativan Affect: PRN ativan Prophylaxis: Heparin Time Spent (Minutes): 30 Notes Reviewed: dot compliance coordinator Discussed with: Pradeep Espana MD Nov 21, 2018 14:39
--- NOTE | 2018-11-21 16:39 | History & Physical ---
History and Physical [facility] [address] [facility]. [id number] Aldo Ruiz MD Nov 21, 2018 16:39
--- NOTE | 2018-11-21 19:30 | History and Physical Report ---
DATE OF ADMISSION: 11/21/2018 CHIEF COMPLAINT: The patient is a 73-year-old male, who presents with a chief complaint of shortness of breath. HISTORY OF PRESENT ILLNESS: The patient has a history of cancer of unknown origin with metastatic lesions to the brain. The patient is a resident of [facility]. According to the staff at [facility], the patient began to experience shortness of breath on 11/20/2018. The patient also had a witnessed seizure. The seizure lasted approximately 1 to 2 minutes. Seizure was tonic-clonic in nature. The patient presented to [place] emergency room. The patient is admitted for shortness of breath and uncontrolled seizures. PAST MEDICAL HISTORY: Significant for, 1. Unknown primary cancer with brain metastases. 2. Hepatitis C. 3. Cirrhosis of the liver. 4. Chronic obstructive pulmonary disease. 5. Seizure disorder. 6. Pericardial effusion. PAST SURGICAL HISTORY: The patient denies. CURRENT MEDICATIONS: 1. Cymbalta 30 mg p.o. daily. 2. Folic acid 1 mg p.o. daily. 3. Heparin 5000 units subcutaneously twice daily. 4. [place]ylo 10/325 mg one tablet p.o. q.4 hours p.r.n. 5. Lactulose 30 mL p.o. twice daily. 6. Keppra 500 mg p.o. twice daily. 7. Ativan 1 mg p.o. q.6 hours p.r.n. 8. Methadone 10 mg p.o. q.8 hours p.r.n. pain. 9. Mirtazapine 7.5 mg p.o. daily. 10. Multivitamin one tablet p.o. daily. 11. MiraLAX 17 g p.o. at bedtime. 12. Zantac 150 mg p.o. twice daily. 13. Restoril 15 mg p.o. at bedtime. 14. Depakote 250 mg p.o. twice daily. ALLERGIES: No known drug allergies. SOCIAL HISTORY: The patient is single and resident of [facility]. The patient denies tobacco or alcohol use. REVIEW OF SYSTEMS: Unable to assess secondary to the patient's mental status. PHYSICAL EXAMINATION: VITAL SIGNS: Temperature 97.9, respirations 20, pulse 93, and blood pressure 120/72. GENERAL: The patient is a well-developed and well-nourished white male, who is currently on full face BiPAP. HEENT: Eyes, pupils are equal and responsive to light and accommodation. Extraocular movements are intact. NECK: Supple without lymphadenopathy. CHEST: Lungs are clear to auscultation bilaterally without wheezes or rales. CARDIOVASCULAR: Regular rhythm and rate. S1 and S2 are normal without murmurs, rubs, or gallops. ABDOMEN: Soft, nontender, and nondistended. Positive bowel sounds. No evidence of hepatosplenomegaly. Currently, no rebound or guarding noted. EXTREMITIES: Negative for clubbing, cyanosis, or edema. RECTAL/GENITAL: Refused. NEUROLOGICALLY: Unable to assess secondary to the patient's mental status. LABORATORY STUDIES: WBC 7.3, hemoglobin 15.2, hematocrit 42.8, and platelets 129,000. Sodium 143, potassium 4.1, chloride 108, CO2 26, BUN 20, creatinine 1.1, and glucose 120. AST elevated at 109 and ALT elevated at 94. BNP elevated at 6087. Troponin 0.029. Chest x-ray was reported as complete opacification of the right hemithorax. This likely is from combination of pleural and parenchymal disease. There are bilateral pulmonary opacities noted as well. ASSESSMENT: This is a 73-year-old white male. 1. Pneumonia. 2. Respiratory failure. 3. Breakthrough seizures. 4. Unknown cancer with brain metastases. 5. Hepatitis C. 6. Cirrhosis of the liver. 7. Chronic obstructive pulmonary disease. 8. Pericardial effusion. TREATMENT: 1. Pneumonia/respiratory failure. A Pulmonary consultation has been obtained with Dr. Pradeep Saavedra. The patient has been placed empirically . Follow recommendation of Pulmonary. 2. Seizure. Continue Keppra and Depakote as above. 3. Unknown cancer with brain metastases. 4. Hepatitis C. 5. Cirrhosis of the liver. 6. Chronic obstructive pulmonary disease. 7. Pericardial effusion. Aldo Ruiz M.D. DR: CURTIS JOB#: [id number] CC:
[2018-11-21] MEDS: 1/2NS w/KCl 20mEq 1000ml 1,000 ML IV SCH (21:06)
[2018-11-21] MEDS: levETIRAcetam 500mg/NS100ml 100 ML IVPB SCH (21:33)
[2018-11-22] VITALS: BP 98/65
[2018-11-22 04:00] VITALS: BP 103/69
[2018-11-22 06:33] LABS: BASOPHILS % (AUTO) 0.6 % (0.0-2.0); EOSINOPHILS % (AUTO) 1.4 % (0.0-3.0); HEMATOCRIT 37.9 % (42.0-52.0); LYMPHOCYTES % (AUTO) 21.3 % (20.0-45.0); MEAN CORPUSCULAR VOLUME 98 FL (80-99); MONOCYTES % (AUTO) 6.7 % (1.0-10.0); PLATELET COUNT 124 K/UL (150-450); RED BLOOD COUNT 3.86 M/UL (4.70-6.10); RED CELL DISTRIBUTION WIDTH 12.5 % (11.6-14.8); WHITE BLOOD COUNT 5.5 K/UL (4.8-10.8)
[2018-11-22 07:02] LABS: ALANINE AMINOTRANSFERASE 68 U/L (12-78); ALBUMIN/GLOBULIN RATIO 0.4 (1.0-2.7); ALKALINE PHOSPHATASE 72 U/L (46-116); ANION GAP 5 mmol/L (5-15); ASPARTATE AMINO TRANSFERASE 77 U/L (15-37); BILIRUBIN,TOTAL 0.7 MG/DL (0.2-1.0); BLOOD UREA NITROGEN 20 mg/dL (7-18); CARBON DIOXIDE 25 MMOL/L (21-32); CHLORIDE 114 MMOL/L (98-107); CREATININE 0.8 MG/DL (0.55-1.30); PHOSPHORUS 3.8 MG/DL (2.5-4.9); SODIUM 144 MMOL/L (136-145)
[2018-11-22 08:00] VITALS: BP 97/64
[2018-11-22] MEDS: Lactulose 20gm/30ml UDC ORAL SCH ×2 (10:21→21:33)
[2018-11-22] MEDS: Heparin 5000 units/ml inj SUBQ SCH ×2 (10:23→21:34)
[2018-11-22] MEDS: 1/2NS w/KCl 20mEq 1000ml 1,000 ML IV SCH ×2 (10:25→22:51)
[2018-11-22] MEDS: levETIRAcetam 500mg/NS100ml 100 ML IVPB SCH ×2 (10:25→22:51)
--- NOTE | 2018-11-22 10:35 | Pulmonolgy Critical Care Note ---
Critical Care - Asmt/Plan Problems: (1) Liver cirrhosis (2) Acute encephalopathy (3) Acute respiratory failure (4) Portal hypertension (5) Psychosis (6) Seizure disorder (7) Metastatic 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 (8) Thrombocytopenia (9) Uncontrolled seizures Respiratory: monitor respiratory rate, adjust FIO2 Cardiac: continue to monitor HR/BP Renal: F/U I&O Infectious Disease: check cultures Gastrointestinal: continue feedings/current rate Endocrine: monitor blood sugar, check TSH Hematologic: monitor H/H, transfuse if hgb<8.5 Neurologic: PRN Ativan, PRN Morphine, keep patient comfortable Time Spent (Minutes): 40 Notes Reviewed: rn homecare, renal Discussed with: nurses, consultants, field case managerfield nurse case manager - Objective Last 24 Hour Vital Signs Date Time Temp Pulse Resp B/P (MAP) Pulse Ox O2 Delivery O2 Flow Rate FiO2 11/22/18 09:03 81 20 96 11/22/18 08:00 92 11/22/18 08:00 Bi-pap 11/22/18 08:00 98.1 91 18 97/64 (75) 90 11/22/18 07:05 102 22 98 Full Face 45 11/22/18 05:30 99 21 98 Full Face 50 11/22/18 04:00 98.0 100 18 103/69 (80) 99 11/22/18 04:00 96.9 100 18 103/69 (80) 99 11/22/18 04:00 60 11/22/18 04:00 Bi-pap 11/22/18 04:00 103 11/22/18 03:05 104 27 99 Full Face 60 11/22/18 00:53 105 24 99 Full Face 70 11/22/18 00:33 100 26 99 Full Face 70 11/22/18 00:00 105 11/22/18 00:00 98.0 100 20 98/65 (76) 100 11/22/18 00:00 Bi-pap 11/21/18 22:40 95 24 100 Full Face 70 11/21/18 20:45 98 26 100 Full Face 70 11/21/18 20:00 97.8 100 25 108/61 (77) 100 11/21/18 20:00 100 11/21/18 20:00 Bi-pap 11/21/18 20:00 97 11/21/18 19:05 89 24 99 Full Face 70 11/21/18 16:45 90 20 99 Full Face 70 11/21/18 16:00 100 11/21/18 16:00 96.7 91 25 103/69 (80) 100 11/21/18 16:00 Bi-pap 11/21/18 16:00 91 11/21/18 14:39 91 25 100 Full Face 70 11/21/18 12:55 94 25 94 Full Face 70 11/21/18 12:00 Bi-pap 11/21/18 12:00 100 11/21/18 12:00 90 11/21/18 12:00 97.7 90 21 90/60 (70) 100 11/21/18 10:45 84 22 100 Facial 70 Status: sedated Condition: critical Neck: full ROM Lungs: chest wall tender Heart: HR/BP stable Abdomen: soft, feeding tube Decubiti: location Micro: Microbiology Date/Time Source Procedure Growth Status 11/20/18 21:38 Blood Blood Culture - Preliminary NO GROWTH AFTER 24 HOURS Resulted 11/20/18 21:23 Blood Blood Culture - Preliminary NO GROWTH AFTER 24 HOURS Resulted 11/20/18 23:55 Rectum Received Critical Care - Subjective ROS Limited/Unobtainable: Yes Interval Events: on and off bipap Condition: critical EKG Rhythm: Sinus Rhythm FI02: 45 Sputum Amount: None I&O: Intake and Output 11/21/18 11/22/18 18:59 06:59 Intake Total 130 ml 767 ml Output Total 0 ml 600 ml Balance 130 ml 167 ml Intake Oral 130 ml IV Total 767 ml Output Urine Total 0 ml 600 ml CXR: extensive R infiltrate Labs: Laboratory Tests Test 11/22/18 04:00 White Blood Count 5.5 K/UL (4.8-10.8) Red Blood Count 3.86 M/UL (4.70-6.10) L Hemoglobin 13.0 G/DL (14.2-18.0) L Hematocrit 37.9 % (42.0-52.0) L Mean Corpuscular Volume 98 FL (80-99) Mean Corpuscular Hemoglobin 33.7 PG (27.0-31.0) H Mean Corpuscular Hemoglobin Concent 34.3 G/DL (32.0-36.0) Red Cell Distribution Width 12.5 % (11.6-14.8) Platelet Count 124 K/UL (150-450) L Mean Platelet Volume 6.1 FL (6.5-10.1) L Neutrophils (%) (Auto) 70.0 % (45.0-75.0) Lymphocytes (%) (Auto) 21.3 % (20.0-45.0) Monocytes (%) (Auto) 6.7 % (1.0-10.0) Eosinophils (%) (Auto) 1.4 % (0.0-3.0) Basophils (%) (Auto) 0.6 % (0.0-2.0) Sodium Level 144 MMOL/L (136-145) Potassium Level 4.0 MMOL/L (3.5-5.1) Chloride Level 114 MMOL/L (98-107) H Carbon Dioxide Level 25 MMOL/L (21-32) Anion Gap 5 mmol/L (5-15) Blood Urea Nitrogen 20 mg/dL (7-18) H Creatinine 0.8 MG/DL (0.55-1.30) Estimat Glomerular Filtration Rate mL/min (>60) Glucose Level 84 MG/DL (74-106) Calcium Level 8.0 MG/DL (8.5-10.1) L Phosphorus Level 3.8 MG/DL (2.5-4.9) Magnesium Level 1.8 MG/DL (1.8-2.4) Total Bilirubin 0.7 MG/DL (0.2-1.0) Aspartate Amino Transf (AST/SGOT) 77 U/L (15-37) H Alanine Aminotransferase (ALT/SGPT) 68 U/L (12-78) Alkaline Phosphatase 72 U/L (46-116) Total Protein 6.6 G/DL (6.4-8.2) Albumin 2.0 G/DL (3.4-5.0) L Globulin 4.6 g/dL Albumin/Globulin Ratio 0.4 (1.0-2.7) L Pradeep Saavedra MD Nov 22, 2018 10:35
[2018-11-22 12:00] VITALS: BP 104/64
--- NOTE | 2018-11-22 12:19 | Diagnostic Imaging Report ---
Indication: Dyspnea Comparison: 11/20/2018 A single view chest radiograph was obtained. Findings: Mixed interstitial and alveolar infiltrates present bilaterally. Heart is enlarged. Accounting for differences in technique there is no significant change. IMPRESSION: Extensive patchy bilateral infiltrates. No definite change
--- NOTE | 2018-11-22 14:38 | Consultation ---
History of Present Illness General Date patient seen: Nov 22, 2018 Chief Complaint: Dyspnea/Respdistress Reason for Consultation: PNA Present Illness HPI Mr. Fox is a 73 yo male with PMHx of CA with brain mets who was sent [facility] the ED from his [facility] for SOB and a witnessed tonic clonic seizure. The patient dose report that he was sob and denies Fever, Chill, Cough, Sore throat and sick contacts. In the ED he was placed on BiPAP. He has no fevers and no leukcoytosis. CXR show Mixed interstitial and alveolar infiltrates present bilaterally. Heart is enlarged. The patient was recently D/C on 10/01/18 to go back to his [facility] with recommendation for hospice care as further CA text was considered futile. He was noted to have Bilateral interstitial and airspace edema Possible left pleural effusion on x ray at that time. Since admission the patient has been on and off BiPAP. he has not been on abx. ID was consulted for SOB and possible PNA PMHx/PSHx Cancer (Unknown primary) with mets to the brain Hepatitis C. Cirrhosis of the liver. Chronic obstructive pulmonary disease. Seizure disorder. Hx of Pericardial effusion. SocHx No current E/T/D FamHx Not contributory Allergies: Coded Allergies: No Known Allergies (Verified , 08/24/12) Medication History Scheduled Cranberry Conc/C/Bacill Coag (Cranberry Tablet), 2 EACH PO DAILY, (Reported) Docusate Sodium (Docusate Sodium), 250 MG ORAL DAILY, (Reported) Docusate Sodium* (Colace*), 100 MG ORAL EVERY 12 HOURS, (Reported) Duloxetine Hcl* (Cymbalta*), 30 MG ORAL DAILY, (Reported) Folic Acid* (Folic Acid*), 1 MG ORAL DAILY, (Reported) Heparin Sod (Porcine) (Heparin Sodium*), 5,000 UNITS SUBQ EVERY 12 HOURS, ( Reported) Lactulose (Lactulose*), 30 ML ORAL EVERY 12 HOURS, (Reported) Levetiracetam (Keppra), 500 MG ORAL EVERY 12 HOURS, (Reported) Lorazepam* (Ativan*), 1 MG ORAL Q6HR, (Reported) Magnesium Hydroxide* (Milk Of Magnesia*), 30 ML ORAL DAILY, (Reported) Mirtazapine* (Mirtazapine*), 7.5 MG ORAL QHS Multivitamin (Multi-Vitamin Daily), 1 EACH PO DAILY, (Reported) Ranitidine Hcl* (Zantac*), 150 MG ORAL BID, (Reported) Ranitidine Hcl* (Ranitidine Hcl*), 150 MG PO DAILY, (Reported) Vitamin B Complex (B Complete), 100 MG ORAL DAILY, (Reported) [valporic acid], 250 PO EVERY 12 HOURS, (Reported) Scheduled PRN Acetaminophen (Acetaminophen), 650 MG ORAL Q6H PRN for Prn Headache/Temp > 101, (Reported) Acetaminophen (Tylenol), 650 MG ORAL Q6H PRN for For Pain, (Reported) Al Hydroxide/mg Hydroxide (Mag-Al Liquid), 30 ML ORAL Q6HR PRN for Abdominal cramps, (Reported) Hydrocodone Bit/Acetaminophen 10-325* ([place] 10-325*), 1 TAB ORAL Q4H PRN for For Pain, (Reported) Hydrocodone Bit/Acetaminophen 5-325* ([place] 5-325*), 1 TAB ORAL Q6HR PRN for For Pain, (Reported) Magnesium Hydroxide (Milk of Magnesia), 30 ML ORAL HS PRN for Constipation, ( Reported) Methadone Hcl* (Methadone*), 10 MG PO EVERY 8 HOURS PRN for For Pain, (Reported) Ondansetron (Zofran), 4 MG ORAL Q6H PRN for Nausea & Vomiting, (Reported) Polyethylene Glycol 3350* (Miralax*), 17 GM ORAL QHS PRN for Constipation, ( Reported) Temazepam* (Restoril*), 15 MG ORAL BEDTIME PRN for Insomnia, (Reported) Zolpidem Tartrate* (Ambien*), 5 MG ORAL BEDTIME PRN for Insomnia, (Reported) Patient History Healthcare decision maker Lucy Cavazos Resuscitation status Full Code Advanced Directive on File Review of Systems ROS Narrative 12 point ROS negative except as noted in the HPI Physical Exam Last 24 Hour Vital Signs Date Time Temp Pulse Resp B/P (MAP) Pulse Ox O2 Delivery O2 Flow Rate FiO2 11/22/18 12:40 80 18 92 11/22/18 12:00 Bi-pap 11/22/18 12:00 4.0 11/22/18 12:00 97.7 89 21 104/64 (77) 89 11/22/18 10:30 85 18 93 11/22/18 09:03 81 20 96 11/22/18 08:00 60 11/22/18 08:00 92 11/22/18 08:00 Bi-pap 11/22/18 08:00 98.1 91 18 97/64 (75) 90 11/22/18 07:05 102 22 98 Full Face 45 11/22/18 05:30 99 21 98 Full Face 50 11/22/18 04:00 98.0 100 18 103/69 (80) 99 11/22/18 04:00 96.9 100 18 103/69 (80) 99 11/22/18 04:00 60 11/22/18 04:00 Bi-pap 11/22/18 04:00 103 11/22/18 03:05 104 27 99 Full Face 60 11/22/18 00:53 105 24 99 Full Face 70 11/22/18 00:33 100 26 99 Full Face 70 11/22/18 00:00 105 11/22/18 00:00 98.0 100 20 98/65 (76) 100 11/22/18 00:00 Bi-pap 11/21/18 22:40 95 24 100 Full Face 70 11/21/18 20:45 98 26 100 Full Face 70 11/21/18 20:00 97.8 100 25 108/61 (77) 100 11/21/18 20:00 100 11/21/18 20:00 Bi-pap 11/21/18 20:00 97 11/21/18 19:05 89 24 99 Full Face 70 11/21/18 16:45 90 20 99 Full Face 70 11/21/18 16:00 100 11/21/18 16:00 96.7 91 25 103/69 (80) 100 11/21/18 16:00 Bi-pap 11/21/18 16:00 91 11/21/18 14:39 91 25 100 Full Face 70 Intake and Output 11/21/18 11/22/18 19:00 07:00 Intake Total 130 ml 842 ml Output Total 150 ml 450 ml Balance -20 ml 392 ml Intake Oral 130 ml IV Total 842 ml Output Urine Total 150 ml 450 ml Laboratory Tests Test 11/22/18 04:00 White Blood Count 5.5 K/UL (4.8-10.8) Red Blood Count 3.86 M/UL (4.70-6.10) L Hemoglobin 13.0 G/DL (14.2-18.0) L Hematocrit 37.9 % (42.0-52.0) L Mean Corpuscular Volume 98 FL (80-99) Mean Corpuscular Hemoglobin 33.7 PG (27.0-31.0) H Mean Corpuscular Hemoglobin Concent 34.3 G/DL (32.0-36.0) Red Cell Distribution Width 12.5 % (11.6-14.8) Platelet Count 124 K/UL (150-450) L Mean Platelet Volume 6.1 FL (6.5-10.1) L Neutrophils (%) (Auto) 70.0 % (45.0-75.0) Lymphocytes (%) (Auto) 21.3 % (20.0-45.0) Monocytes (%) (Auto) 6.7 % (1.0-10.0) Eosinophils (%) (Auto) 1.4 % (0.0-3.0) Basophils (%) (Auto) 0.6 % (0.0-2.0) Sodium Level 144 MMOL/L (136-145) Potassium Level 4.0 MMOL/L (3.5-5.1) Chloride Level 114 MMOL/L (98-107) H Carbon Dioxide Level 25 MMOL/L (21-32) Anion Gap 5 mmol/L (5-15) Blood Urea Nitrogen 20 mg/dL (7-18) H Creatinine 0.8 MG/DL (0.55-1.30) Estimat Glomerular Filtration Rate mL/min (>60) Glucose Level 84 MG/DL (74-106) Calcium Level 8.0 MG/DL (8.5-10.1) L Phosphorus Level 3.8 MG/DL (2.5-4.9) Magnesium Level 1.8 MG/DL (1.8-2.4) Total Bilirubin 0.7 MG/DL (0.2-1.0) Aspartate Amino Transf (AST/SGOT) 77 U/L (15-37) H Alanine Aminotransferase (ALT/SGPT) 68 U/L (12-78) Alkaline Phosphatase 72 U/L (46-116) Total Protein 6.6 G/DL (6.4-8.2) Albumin 2.0 G/DL (3.4-5.0) L Globulin 4.6 g/dL Albumin/Globulin Ratio 0.4 (1.0-2.7) L Levetiracetam (Keppra) Level Pending Height (Feet): 5 Height (Inches): 5.00 Weight (Pounds): 150 Medications Current Medications Medications (Trade) Dose Ordered Sig/Darinel Route PRN Reason Start Time Stop Time Status Last Admin Dose Admin Acetaminophen (Tylenol) 650 mg Q4H PRN ORAL fever 11/20/18 22:00 12/20/18 21:59 Acetaminophen/ Hydrocodone Bitart ([place] 5/325) 1 tab Q6H PRN ORAL Moderate Pain (Pain Scale 4-6) 11/20/18 22:00 11/27/18 21:59 Dextrose (Dextrose 50%) STAT PRN IV Hypoglycemia 11/20/18 22:00 12/20/18 21:59 Heparin Sodium (Porcine) (Heparin 5000 units/ml) 5,000 units EVERY 12 HOURS SUBQ 11/21/18 09:00 12/21/18 08:59 11/22/18 10:23 Lactulose (Cephulac) 20 gm EVERY 12 HOURS ORAL 11/21/18 09:00 12/21/18 08:59 11/22/18 10:21 Levetiracetam 100 ml @ 400 mls/hr Q12HR@1000,2200 IVPB 11/21/18 22:00 12/21/18 21:59 11/22/18 10:25 Lorazepam (Ativan 2mg/ml 1ml) 2 mg Q1H PRN IV seizures 11/20/18 22:00 11/27/18 21:59 Methadone HCl (Methadone HCl) 10 mg Q8H PRN ORAL Breakthrough Pain 11/20/18 22:00 11/27/18 21:59 Mirtazapine (Remeron) 7.5 mg QHS ORAL 11/20/18 22:00 12/20/18 21:59 Morphine Sulfate (Morphine Sulfate) 1 mg Q4H PRN IVP Severe Pain (Pain Scale 7-10) 11/20/18 22:00 11/27/18 21:59 Ondansetron HCl (Zofran) 4 mg Q6H PRN IVP Nausea & Vomiting 11/20/18 22:00 12/20/18 21:59 Polyethylene Glycol (Miralax) 17 gm HSPRN PRN ORAL Constipation 11/20/18 22:00 12/20/18 21:59 Sodium 1,000 ml @ 75 mls/hr [id number] IV 11/21/18 21:00 12/21/18 20:59 11/22/18 10:25 Zolpidem Tartrate (Ambien) 5 mg HSPRN PRN ORAL Insomnia 11/20/18 22:00 11/27/18 21:59 Objective Narrative Gen: On NC, Thin male HEENT: NCAT, MMM, EOMI, PERRL, No Oral lesion, no scleral icterus NECK: full range of motion, supple, no meningismus, No LAD, No JVD LUNGS: Coarse B/L No W CARDS: RRR, S1, S2, No M/R/G, ABD: Soft, NT, ND, No R/G, + BS, No HSM, No Masses : Deferred Ext: C/C/E, Pulses 2+ B/L (DP, Rad): NEURO: A/O x 1, Fallowing commands SKIN: Warm/dry, No rashes Assessment/Plan Assessment/Plan: 73 yo male with PMHx of CA with brain mets who was sent [facility] the ED from his [facility] for SOB and a witnessed tonic clonic seizure. Respiratory failure Likely has lung mets and effusions No signs of current sepsis CXR - 11/22/18 Mixed interstitial and alveolar infiltrates present bilaterally. Heart is enlarged. Accounting for differences in technique there is no significant change. No Fever No leukocytosis Cancer (Unknown primary) with mets to the brain Hepatitis C. Cirrhosis of the liver. Chronic obstructive pulmonary disease. Seizure disorder. Hx of Pericardial effusion. PLAN - Continue to monitor off abx - Will start abx if he develops signs of active sepsis - Monitor CBC and Temps - Pulm following Thank you for this consult. We will continue to follow the patient during this hospitalization. Jorge Luis Lee MD Nov 22, 2018 14:38
[2018-11-22 16:00] VITALS: BP 97/67
[2018-11-22 20:00] VITALS: BP 107/66
--- NOTE | 2018-11-22 20:37 | Internal Med Progress Note ---
Subjective Date of Service: Nov 22, 2018 Physician Name Aldo Ruiz Attending Physician Damaso Hunt MD Current Medications Medications (Trade) Dose Ordered Sig/Darinel Route PRN Reason Start Time Stop Time Status Last Admin Dose Admin Acetaminophen (Tylenol) 650 mg Q4H PRN ORAL fever 11/20/18 22:00 12/20/18 21:59 Acetaminophen/ Hydrocodone Bitart ([place] 5/325) 1 tab Q6H PRN ORAL Moderate Pain (Pain Scale 4-6) 11/20/18 22:00 11/27/18 21:59 Dextrose (Dextrose 50%) STAT PRN IV Hypoglycemia 11/20/18 22:00 12/20/18 21:59 Heparin Sodium (Porcine) (Heparin 5000 units/ml) 5,000 units EVERY 12 HOURS SUBQ 11/21/18 09:00 12/21/18 08:59 11/22/18 10:23 Lactulose (Cephulac) 20 gm EVERY 12 HOURS ORAL 11/21/18 09:00 12/21/18 08:59 11/22/18 10:21 Levetiracetam 100 ml @ 400 mls/hr Q12HR@1000,2200 IVPB 11/21/18 22:00 12/21/18 21:59 11/22/18 10:25 Lorazepam (Ativan 2mg/ml 1ml) 2 mg Q1H PRN IV seizures 11/20/18 22:00 11/27/18 21:59 Methadone HCl (Methadone HCl) 10 mg Q8H PRN ORAL Breakthrough Pain 11/20/18 22:00 11/27/18 21:59 Mirtazapine (Remeron) 7.5 mg QHS ORAL 11/20/18 22:00 12/20/18 21:59 Morphine Sulfate (Morphine Sulfate) 1 mg Q4H PRN IVP Severe Pain (Pain Scale 7-10) 11/20/18 22:00 11/27/18 21:59 Ondansetron HCl (Zofran) 4 mg Q6H PRN IVP Nausea & Vomiting 11/20/18 22:00 12/20/18 21:59 Polyethylene Glycol (Miralax) 17 gm HSPRN PRN ORAL Constipation 11/20/18 22:00 12/20/18 21:59 Sodium 1,000 ml @ 75 mls/hr [id number] IV 11/21/18 21:00 12/21/18 20:59 11/22/18 10:25 Zolpidem Tartrate (Ambien) 5 mg HSPRN PRN ORAL Insomnia 11/20/18 22:00 11/27/18 21:59 Allergies: Coded Allergies: No Known Allergies (Verified , 08/24/12) ROS Limited/Unobtainable: Yes Subjective 73 YO M admitted with respiratory failure. Now pneumonia. Cover for Int Med- Dr Hunt. WALLACE Objective Last Vital Signs Date Time Temp Pulse Resp B/P (MAP) Pulse Ox O2 Delivery O2 Flow Rate FiO2 11/22/18 20:00 40 11/22/18 16:40 88 18 92 11/22/18 16:00 96.8 97/67 (77) 11/22/18 16:00 4.0 11/22/18 16:00 Bi-pap Laboratory Tests Test 11/22/18 04:00 White Blood Count 5.5 K/UL (4.8-10.8) Red Blood Count 3.86 M/UL (4.70-6.10) L Hemoglobin 13.0 G/DL (14.2-18.0) L Hematocrit 37.9 % (42.0-52.0) L Mean Corpuscular Volume 98 FL (80-99) Mean Corpuscular Hemoglobin 33.7 PG (27.0-31.0) H Mean Corpuscular Hemoglobin Concent 34.3 G/DL (32.0-36.0) Red Cell Distribution Width 12.5 % (11.6-14.8) Platelet Count 124 K/UL (150-450) L Mean Platelet Volume 6.1 FL (6.5-10.1) L Neutrophils (%) (Auto) 70.0 % (45.0-75.0) Lymphocytes (%) (Auto) 21.3 % (20.0-45.0) Monocytes (%) (Auto) 6.7 % (1.0-10.0) Eosinophils (%) (Auto) 1.4 % (0.0-3.0) Basophils (%) (Auto) 0.6 % (0.0-2.0) Sodium Level 144 MMOL/L (136-145) Potassium Level 4.0 MMOL/L (3.5-5.1) Chloride Level 114 MMOL/L (98-107) H Carbon Dioxide Level 25 MMOL/L (21-32) Anion Gap 5 mmol/L (5-15) Blood Urea Nitrogen 20 mg/dL (7-18) H Creatinine 0.8 MG/DL (0.55-1.30) Estimat Glomerular Filtration Rate mL/min (>60) Glucose Level 84 MG/DL (74-106) Calcium Level 8.0 MG/DL (8.5-10.1) L Phosphorus Level 3.8 MG/DL (2.5-4.9) Magnesium Level 1.8 MG/DL (1.8-2.4) Total Bilirubin 0.7 MG/DL (0.2-1.0) Aspartate Amino Transf (AST/SGOT) 77 U/L (15-37) H Alanine Aminotransferase (ALT/SGPT) 68 U/L (12-78) Alkaline Phosphatase 72 U/L (46-116) Total Protein 6.6 G/DL (6.4-8.2) Albumin 2.0 G/DL (3.4-5.0) L Globulin 4.6 g/dL Albumin/Globulin Ratio 0.4 (1.0-2.7) L Levetiracetam (Keppra) Level Pending Microbiology Date/Time Source Procedure Growth Status 11/20/18 21:38 Blood Blood Culture - Preliminary NO GROWTH AFTER 24 HOURS Resulted 11/20/18 21:23 Blood Blood Culture - Preliminary NO GROWTH AFTER 24 HOURS Resulted 11/20/18 23:55 Rectum Received Intake and Output 11/21/18 11/22/18 19:00 07:00 Intake Total 130 ml 842 ml Output Total 150 ml 450 ml Balance -20 ml 392 ml Intake Oral 130 ml IV Total 842 ml Output Urine Total 150 ml 450 ml Objective PHYSICAL EXAMINATION: GENERAL: The patient is a well-developed and well-nourished white male, who is currently on full face BiPAP. HEENT: Eyes, pupils are equal and responsive to light and accommodation. Extraocular movements are intact. NECK: Supple without lymphadenopathy. CHEST: BIPAP; Lungs with epiratory wheezes and rales bilaterally. Decreased breath sounds right base CARDIOVASCULAR: Regular rhythm and rate. S1 and S2 are normal without murmurs, rubs, or gallops. ABDOMEN: Soft, nontender, and nondistended. Positive bowel sounds. No evidence of hepatosplenomegaly. Currently, no rebound or guarding noted. EXTREMITIES: Negative for clubbing, cyanosis, or edema. RECTAL/GENITAL: Refused. NEUROLOGICALLY: Unable to assess secondary to the patient's mental status. Assessment/Plan Assessment/Plan ASSESSMENT: This is a 73-year-old white male. 1. Pneumonia. 2. Respiratory failure. 3. Breakthrough seizures. 4. Unknown cancer with brain metastases. 5. Hepatitis C. 6. Cirrhosis of the liver. 7. Chronic obstructive pulmonary disease. 8. Pericardial effusion. TREATMENT: 1. Pneumonia/respiratory failure. A Pulmonary consultation has been obtained with Dr. Pradeep Saavedra. The patient has been placed on BIPAP. Follow recommendation of Pulmonary. 2. Seizure. Continue Keppra and Depakote as above. 3. Unknown cancer with brain metastases. 4. Hepatitis C. 5. Cirrhosis of the liver. 6. Chronic obstructive pulmonary disease. 7. Pericardial effusion. Aldo Ruiz MD Nov 22, 2018 20:37
[2018-11-22] MEDS ORDERED: LORazepam Inj 2mg/ml 1ml IV PRN (22:00)
[2018-11-22] MEDS ORDERED: HYDROcodone/Acetamin 5/325 tab ORAL PRN (22:00)
[2018-11-22] MEDS ORDERED: Miralax 17gm pkt ORAL PRN (22:00)
[2018-11-22] MEDS ORDERED: Morphine Sulfate 2mg/ml Inj(IV/IM USE ONLY) IVP PRN (22:00)
[2018-11-22] MEDS ORDERED: Zolpidem 5mg tab ORAL PRN (22:00)
[2018-11-23] VITALS (8 sets, daily range): BP systolic 95–149; BP diastolic 67–82
[2018-11-23] MEDS ORDERED: Lactulose 20gm/30ml UDC ORAL SCH (09:00)
[2018-11-23] MEDS ORDERED: Heparin 5000 units/ml inj SUBQ SCH (09:00)
[2018-11-23] MEDS: levETIRAcetam 500mg/NS100ml 100 ML IVPB SCH ×2 (09:03→21:35)
[2018-11-23 09:17] LABS: BASOPHILS % (AUTO) 0.8 % (0.0-2.0); EOSINOPHILS % (AUTO) 1.4 % (0.0-3.0); HEMOGLOBIN 15.3 G/DL (14.2-18.0); LYMPHOCYTES % (AUTO) 35.2 % (20.0-45.0); MEAN CORPUSCULAR VOLUME 101 FL (80-99); MONOCYTES % (AUTO) 5.6 % (1.0-10.0); PLATELET COUNT 137 K/UL (150-450); RED BLOOD COUNT 4.57 M/UL (4.70-6.10); RED CELL DISTRIBUTION WIDTH 12.9 % (11.6-14.8); WHITE BLOOD COUNT 7.3 K/UL (4.8-10.8)
[2018-11-23 09:22] LABS: ANION GAP 10 mmol/L (5-15); BLOOD UREA NITROGEN 16 mg/dL (7-18); CALCIUM 8.5 MG/DL (8.5-10.1); CARBON DIOXIDE 22 MMOL/L (21-32); CHLORIDE 112 MMOL/L (98-107); CREATININE 0.8 MG/DL (0.55-1.30); POTASSIUM 4.9 MMOL/L (3.5-5.1); SODIUM 144 MMOL/L (136-145)
[2018-11-23] MEDS ORDERED: Albuterol/Ipratropium 3ml neb HHN PRN (10:00)
--- NOTE | 2018-11-23 11:57 | Pulmonology Progress Note ---
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 Subjective ROS Limited/Unobtainable: No Constitutional: Reports: no symptoms HEENT: Repors: no symptoms Allergies: Coded Allergies: No Known Allergies (Verified , 08/24/12) Objective Last 24 Hour Vital Signs Date Time Temp Pulse Resp B/P (MAP) Pulse Ox O2 Delivery O2 Flow Rate FiO2 11/23/18 10:36 81 20 100 Nasal Cannula 4.0 36 11/23/18 10:27 80 34 97 Nasal Cannula 4.0 36 11/23/18 09:54 78 20 98 11/23/18 09:54 78 20 98 Nasal Cannula 4.0 36 11/23/18 09:00 Nasal Cannula 4.0 11/23/18 08:00 98.0 88 19 121/79 (93) 95 11/23/18 07:00 85 20 97 11/23/18 04:00 97.7 90 18 118/82 (94) 92 11/23/18 00:00 98.1 93 18 117/77 (90) 92 11/22/18 21:43 89 20 93 11/22/18 20:00 Nasal Cannula 4.0 11/22/18 20:00 88 11/22/18 20:00 97.8 76 24 107/66 (80) 95 11/22/18 20:00 40 11/22/18 19:27 88 22 94 11/22/18 16:40 88 18 92 11/22/18 16:00 96.8 86 24 97/67 (77) 95 11/22/18 16:00 4.0 11/22/18 16:00 Bi-pap 11/22/18 16:00 85 11/22/18 14:30 82 18 93 11/22/18 12:40 80 18 92 11/22/18 12:00 Bi-pap 11/22/18 12:00 4.0 11/22/18 12:00 87 11/22/18 12:00 97.7 89 21 104/64 (77) 89 Intake and Output 11/22/18 11/23/18 18:59 06:59 Intake Total 1150 ml 925 ml Output Total 200 ml 250 ml Balance 950 ml 675 ml Intake Oral 150 ml IV Total 1000 ml 925 ml Output Urine Total 200 ml 250 ml # Voids 2 1 # Bowel Movements 2 General Appearance: WD/WN HEENT: normocephalic, atraumatic, PERRL Respiratory/Chest: chest wall non-tender, lungs clear, chest wall tender Cardiovascular: normal peripheral pulses, normal rate, no JVD Abdomen: soft, non tender, no mass Extremities: no cyanosis Skin: no rash Microbiology Date/Time Source Procedure Growth Status 11/20/18 21:38 Blood Blood Culture - Preliminary NO GROWTH AFTER 48 HOURS Resulted 11/20/18 21:23 Blood Blood Culture - Preliminary NO GROWTH AFTER 48 HOURS Resulted 11/20/18 23:55 Rectum VRE Culture - Final Enterococcus Faecalis - Vre Complete Laboratory Tests 11/23/18 08:45: White Blood Count 7.3, Red Blood Count 4.57L, Hemoglobin 15.3, Hematocrit 46.0, Mean Corpuscular Volume 101H, Mean Corpuscular Hemoglobin 33.6H, Mean Corpuscular Hemoglobin Concent 33.4, Red Cell Distribution Width 12.9, Platelet Count 137L, Mean Platelet Volume 7.2, Neutrophils (%) (Auto) 57.0, Lymphocytes ( %) (Auto) 35.2, Monocytes (%) (Auto) 5.6, Eosinophils (%) (Auto) 1.4, Basophils (%) (Auto) 0.8, Sodium Level 144, Potassium Level 4.9, Chloride Level 112H, Carbon Dioxide Level 22, Anion Gap 10, Blood Urea Nitrogen 16, Creatinine 0.8, Estimat Glomerular Filtration Rate , Glucose Level 96, Calcium Level 8.5 Current Medications Medications (Trade) Dose Ordered Sig/Darinel Route PRN Reason Start Time Stop Time Status Last Admin Dose Admin Acetaminophen (Tylenol) 650 mg Q4H PRN ORAL fever 11/22/18 22:00 12/20/18 21:59 Acetaminophen/ Hydrocodone Bitart ([place] 5/325) 1 tab Q6H PRN ORAL Moderate Pain (Pain Scale 4-6) 11/22/18 22:00 11/27/18 21:59 Albuterol/ Ipratropium (Albuterol/ Ipratropium) 3 ml Q6H PRN HHN Shortness of Breath 11/23/18 10:00 11/28/18 09:59 11/23/18 10:27 Dextrose (Dextrose 50%) STAT PRN IV Hypoglycemia 11/22/18 22:00 12/20/18 21:59 Heparin Sodium (Porcine) (Heparin 5000 units/ml) 5,000 units EVERY 12 HOURS SUBQ 11/23/18 09:00 12/21/18 08:59 Lactulose (Cephulac) 20 gm EVERY 12 HOURS ORAL 11/23/18 09:00 12/21/18 08:59 11/23/18 08:59 Levetiracetam 100 ml @ 400 mls/hr Q12HR@1000,2200 IVPB 11/22/18 22:00 12/21/18 21:59 11/23/18 09:03 Lorazepam (Ativan 2mg/ml 1ml) 2 mg Q1H PRN IV seizures 11/22/18 22:00 11/27/18 21:59 11/23/18 08:59 Methadone HCl (Methadone HCl) 10 mg Q8H PRN ORAL Breakthrough Pain 11/22/18 22:00 11/27/18 21:59 Mirtazapine (Remeron) 7.5 mg QHS ORAL 11/23/18 21:00 12/20/18 21:59 Morphine Sulfate (Morphine Sulfate) 1 mg Q4H PRN IVP Severe Pain (Pain Scale 7-10) 11/22/18 22:00 11/27/18 21:59 11/23/18 01:06 Ondansetron HCl (Zofran) 4 mg Q6H PRN IVP Nausea & Vomiting 11/22/18 22:00 12/20/18 21:59 Polyethylene Glycol (Miralax) 17 gm HSPRN PRN ORAL Constipation 11/22/18 22:00 12/20/18 21:59 Sodium 1,000 ml @ 75 mls/hr [id number] IV 11/22/18 22:00 12/21/18 20:59 11/22/18 22:51 Zolpidem Tartrate (Ambien) 5 mg HSPRN PRN ORAL Insomnia 11/22/18 22:00 11/27/18 21:59 Pradeep Saavedra MD Nov 23, 2018 11:57
[2018-11-23] MEDS: 1/2NS w/KCl 20mEq 1000ml 1,000 ML IV SCH (12:00)
--- NOTE | 2018-11-23 15:04 | Cardiology Report ---
APPROVED REPORT EKG Measurement Heart [id number] DC [id number] Sinus tachycardia Left axis deviation Low voltage QRS Septal infarct, age undetermined Abnormal ECG
--- NOTE | 2018-11-23 15:36 | Infectious Diseases Prog Note ---
Assessment/Plan Assessment/Plan 73 yo male with PMHx of CA with brain mets who was sent to the ED from his detention for SOB and a witnessed tonic clonic seizure. Respiratory failure Likely has lung mets and effusions No signs of current sepsis CXR - 11/22/18 Mixed interstitial and alveolar infiltrates present bilaterally. Heart is enlarged. Accounting for differences in technique there is no significant change. No Fever No leukocytosis Cancer (Unknown primary) with mets to the brain Hepatitis C. Cirrhosis of the liver. Chronic obstructive pulmonary disease. Seizure disorder. Hx of Pericardial effusion. 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 Subjective Allergies: Coded Allergies: No Known Allergies (Verified , 08/24/12) Subjective Afebrile FRANCIS Still no leukcoytosis Objective Vital Signs Last 24 Hour Vital Signs Date Time Temp Pulse Resp B/P (MAP) Pulse Ox O2 Delivery O2 Flow Rate FiO2 11/23/18 14:20 77 20 99 11/23/18 13:00 75 20 98 11/23/18 12:00 97.9 82 19 118/77 (91) 96 11/23/18 11:30 79 20 97 11/23/18 10:36 81 20 100 Nasal Cannula 4.0 36 11/23/18 10:27 80 34 97 Nasal Cannula 4.0 36 11/23/18 09:54 78 20 98 11/23/18 09:54 78 20 98 Nasal Cannula 4.0 36 11/23/18 09:00 Nasal Cannula 4.0 11/23/18 08:00 98.0 88 19 121/79 (93) 95 11/23/18 07:00 85 20 97 11/23/18 04:00 97.7 90 18 118/82 (94) 92 11/23/18 00:00 98.1 93 18 117/77 (90) 92 11/22/18 21:43 89 20 93 11/22/18 20:00 Nasal Cannula 4.0 11/22/18 20:00 88 11/22/18 20:00 97.8 76 24 107/66 (80) 95 11/22/18 20:00 40 11/22/18 19:27 88 22 94 11/22/18 16:40 88 18 92 11/22/18 16:00 96.8 86 24 97/67 (77) 95 11/22/18 16:00 4.0 11/22/18 16:00 Bi-pap 11/22/18 16:00 85 Height (Feet): 5 Height (Inches): 5.00 Weight (Pounds): 150 Objective Gen: On NC, Thin male HEENT: NCAT, MMM, EOMI LUNGS: Coarse B/L No W CARDS: RRR, S1, S2, No M ABD: Soft, NT, ND NEURO: A/O x 1, Fallowing commands Microbiology Date/Time Source Procedure Growth Status 11/20/18 21:38 Blood Blood Culture - Preliminary NO GROWTH AFTER 48 HOURS Resulted 11/20/18 21:23 Blood Blood Culture - Preliminary NO GROWTH AFTER 48 HOURS Resulted 11/20/18 23:55 Rectum VRE Culture - Final Enterococcus Faecalis - Vre Complete Laboratory Tests Test 11/23/18 08:45 White Blood Count 7.3 K/UL (4.8-10.8) Red Blood Count 4.57 M/UL (4.70-6.10) L Hemoglobin 15.3 G/DL (14.2-18.0) Hematocrit 46.0 % (42.0-52.0) Mean Corpuscular Volume 101 FL (80-99) H Mean Corpuscular Hemoglobin 33.6 PG (27.0-31.0) H Mean Corpuscular Hemoglobin Concent 33.4 G/DL (32.0-36.0) Red Cell Distribution Width 12.9 % (11.6-14.8) Platelet Count 137 K/UL (150-450) L Mean Platelet Volume 7.2 FL (6.5-10.1) Neutrophils (%) (Auto) 57.0 % (45.0-75.0) Lymphocytes (%) (Auto) 35.2 % (20.0-45.0) Monocytes (%) (Auto) 5.6 % (1.0-10.0) Eosinophils (%) (Auto) 1.4 % (0.0-3.0) Basophils (%) (Auto) 0.8 % (0.0-2.0) Sodium Level 144 MMOL/L (136-145) Potassium Level 4.9 MMOL/L (3.5-5.1) Chloride Level 112 MMOL/L (98-107) H Carbon Dioxide Level 22 MMOL/L (21-32) Anion Gap 10 mmol/L (5-15) Blood Urea Nitrogen 16 mg/dL (7-18) Creatinine 0.8 MG/DL (0.55-1.30) Estimat Glomerular Filtration Rate mL/min (>60) Glucose Level 96 MG/DL (74-106) Calcium Level 8.5 MG/DL (8.5-10.1) Current Medications Medications (Trade) Dose Ordered Sig/Darinel Route PRN Reason Start Time Stop Time Status Last Admin Dose Admin Acetaminophen (Tylenol) 650 mg Q4H PRN ORAL fever 11/22/18 22:00 12/20/18 21:59 Acetaminophen/ Hydrocodone Bitart ([place] 5/325) 1 tab Q6H PRN ORAL Moderate Pain (Pain Scale 4-6) 11/22/18 22:00 11/27/18 21:59 Albuterol/ Ipratropium (Albuterol/ Ipratropium) 3 ml Q6H PRN HHN Shortness of Breath 11/23/18 10:00 11/28/18 09:59 11/23/18 10:27 Dextrose (Dextrose 50%) STAT PRN IV Hypoglycemia 11/22/18 22:00 12/20/18 21:59 Heparin Sodium (Porcine) (Heparin 5000 units/ml) 5,000 units EVERY 12 HOURS SUBQ 11/23/18 09:00 12/21/18 08:59 Lactulose (Cephulac) 20 gm EVERY 12 HOURS ORAL 11/23/18 09:00 12/21/18 08:59 11/23/18 08:59 Levetiracetam 100 ml @ 400 mls/hr Q12HR@1000,2200 IVPB 11/22/18 22:00 12/21/18 21:59 11/23/18 09:03 Lorazepam (Ativan 2mg/ml 1ml) 2 mg Q1H PRN IV seizures 11/22/18 22:00 11/27/18 21:59 11/23/18 08:59 Methadone HCl (Methadone HCl) 10 mg Q8H PRN ORAL Breakthrough Pain 11/22/18 22:00 11/27/18 21:59 Mirtazapine (Remeron) 7.5 mg QHS ORAL 11/23/18 21:00 12/20/18 21:59 Morphine Sulfate (Morphine Sulfate) 1 mg Q4H PRN IVP Severe Pain (Pain Scale 7-10) 11/22/18 22:00 11/27/18 21:59 11/23/18 01:06 Ondansetron HCl (Zofran) 4 mg Q6H PRN IVP Nausea & Vomiting 11/22/18 22:00 12/20/18 21:59 Polyethylene Glycol (Miralax) 17 gm HSPRN PRN ORAL Constipation 11/22/18 22:00 12/20/18 21:59 Sodium 1,000 ml @ 75 mls/hr [id number] IV 11/22/18 22:00 12/21/18 20:59 11/23/18 12:00 Zolpidem Tartrate (Ambien) 5 mg HSPRN PRN ORAL Insomnia 11/22/18 22:00 11/27/18 21:59 Jorge Luis Lee MD Nov 23, 2018 15:36
[2018-11-23] MEDS: Albuterol/Ipratropium 3ml neb HHN PRN ×2 (16:34→20:28)
[2018-11-23] MEDS ORDERED: PCA Morphine 1mg/ml 30 ML IV SCH ×2 (16:45→17:45)
[2018-11-23] MEDS ORDERED: Rate Change Narcotic Drip MISC PRN (17:00)
[2018-11-23] MEDS ORDERED: Tubing IV Secondary IV ONE (17:36)
[2018-11-23] MEDS: PCA Morphine 30mg/30ml IV PRN ×2 (18:04→23:20)
--- NOTE | 2018-11-23 18:52 | Internal Med Progress Note ---
Subjective Date of Service: Nov 23, 2018 Physician Name Aldo Ruiz Attending Physician Damaso Hunt MD Current Medications Medications (Trade) Dose Ordered Sig/Darinel Route PRN Reason Start Time Stop Time Status Last Admin Dose Admin Albuterol/ Ipratropium (Albuterol/ Ipratropium) 3 ml Q4H PRN HHN Shortness of Breath 11/23/18 15:52 11/28/18 15:51 11/23/18 16:34 Dextrose (Dextrose 50%) STAT PRN IV Hypoglycemia 11/22/18 22:00 12/20/18 21:59 Levetiracetam 100 ml @ 400 mls/hr Q12HR@1000,2200 IVPB 11/22/18 22:00 12/21/18 21:59 11/23/18 09:03 Lorazepam (Ativan 2mg/ml 1ml) 2 mg Q1H PRN IV seizures 11/22/18 22:00 11/27/18 21:59 11/23/18 08:59 Miscellaneous Medication (Narcotic Drip Rate Change) 1 ea DAILY PRN MISC per protocol 11/23/18 17:00 12/23/18 16:59 Miscellaneous Medication (Narcotic Shift Volume) 1 ea Q8HR@07,15,23 MISC 11/23/18 23:00 12/23/18 22:59 Morphine Sulfate 30 ml @ 5 mls/hr [employer] Protocol PRN IV For Pain 11/23/18 18:00 11/25/18 17:59 11/23/18 18:04 Morphine Sulfate (Morphine Sulfate) 1 mg Q4H PRN IVP Severe Pain (Pain Scale 7-10) 11/22/18 22:00 11/27/18 21:59 11/23/18 01:06 Ondansetron HCl (Zofran) 4 mg Q6H PRN IVP Nausea & Vomiting 11/22/18 22:00 12/20/18 21:59 Zolpidem Tartrate (Ambien) 5 mg HSPRN PRN ORAL Insomnia 11/22/18 22:00 11/27/18 21:59 Allergies: Coded Allergies: No Known Allergies (Verified , 08/24/12) ROS Limited/Unobtainable: Yes Subjective 73 YO M admitted with respiratory failure. Now pneumonia. Cover for Int Med- Dr Hunt. Objective Last Vital Signs Date Time Temp Pulse Resp B/P (MAP) Pulse Ox O2 Delivery O2 Flow Rate FiO2 11/23/18 18:34 97.9 11/23/18 16:00 55 12 95/67 (76) 75 11/23/18 10:36 Nasal Cannula 4.0 36 Laboratory Tests Test 11/23/18 08:45 White Blood Count 7.3 K/UL (4.8-10.8) Red Blood Count 4.57 M/UL (4.70-6.10) L Hemoglobin 15.3 G/DL (14.2-18.0) Hematocrit 46.0 % (42.0-52.0) Mean Corpuscular Volume 101 FL (80-99) H Mean Corpuscular Hemoglobin 33.6 PG (27.0-31.0) H Mean Corpuscular Hemoglobin Concent 33.4 G/DL (32.0-36.0) Red Cell Distribution Width 12.9 % (11.6-14.8) Platelet Count 137 K/UL (150-450) L Mean Platelet Volume 7.2 FL (6.5-10.1) Neutrophils (%) (Auto) 57.0 % (45.0-75.0) Lymphocytes (%) (Auto) 35.2 % (20.0-45.0) Monocytes (%) (Auto) 5.6 % (1.0-10.0) Eosinophils (%) (Auto) 1.4 % (0.0-3.0) Basophils (%) (Auto) 0.8 % (0.0-2.0) Sodium Level 144 MMOL/L (136-145) Potassium Level 4.9 MMOL/L (3.5-5.1) Chloride Level 112 MMOL/L (98-107) H Carbon Dioxide Level 22 MMOL/L (21-32) Anion Gap 10 mmol/L (5-15) Blood Urea Nitrogen 16 mg/dL (7-18) Creatinine 0.8 MG/DL (0.55-1.30) Estimat Glomerular Filtration Rate mL/min (>60) Glucose Level 96 MG/DL (74-106) Calcium Level 8.5 MG/DL (8.5-10.1) Microbiology Date/Time Source Procedure Growth Status 11/20/18 21:38 Blood Blood Culture - Preliminary NO GROWTH AFTER 48 HOURS Resulted 11/20/18 21:23 Blood Blood Culture - Preliminary NO GROWTH AFTER 48 HOURS Resulted 11/20/18 23:55 Rectum VRE Culture - Final Enterococcus Faecalis - Vre Complete Intake and Output 11/22/18 11/23/18 19:00 07:00 Intake Total 1075 ml 1000 ml Output Total 200 ml 250 ml Balance 875 ml 750 ml Intake Oral 150 ml IV Total 925 ml 1000 ml Output Urine Total 200 ml 250 ml # Voids 2 1 # Bowel Movements 2 Objective PHYSICAL EXAMINATION: GENERAL: The patient is a well-developed and well-nourished white male, who is currently on full face BiPAP. HEENT: Eyes, pupils are equal and responsive to light and accommodation. Extraocular movements are intact. NECK: Supple without lymphadenopathy. CHEST: Nasal canula; Lungs with epiratory wheezes and rales bilaterally. Decreased breath sounds right base CARDIOVASCULAR: Regular rhythm and rate. S1 and S2 are normal without murmurs, rubs, or gallops. ABDOMEN: Soft, nontender, and nondistended. Positive bowel sounds. No evidence of hepatosplenomegaly. Currently, no rebound or guarding noted. EXTREMITIES: Negative for clubbing, cyanosis, or edema. RECTAL/GENITAL: Refused. NEUROLOGICALLY: Unable to assess secondary to the patient's mental status. Assessment/Plan Assessment/Plan ASSESSMENT: This is a 73-year-old white male. 1. Pneumonia. 2. Respiratory failure. 3. Breakthrough seizures. 4. Unknown cancer with brain metastases. 5. Hepatitis C. 6. Cirrhosis of the liver. 7. Chronic obstructive pulmonary disease. 8. Pericardial effusion. TREATMENT: 1. Pneumonia/respiratory failure. A Pulmonary consultation has been obtained with Dr. Pradeep Saavedra. The patient is tolerating nasal canula Follow recommendation of Pulmonary. 2. Seizure. Continue Keppra and Depakote as above. 3. Unknown cancer with brain metastases. 4. Hepatitis C. 5. Cirrhosis of the liver. 6. Chronic obstructive pulmonary disease. 7. Pericardial effusion. Aldo Ruiz MD Nov 23, 2018 18:52
[2018-11-23] MEDS: Narcotic Shift Volume MISC SCH (19:00)
[2018-11-24 04:00] VITALS: BP 124/83
[2018-11-24] MEDS: PCA Morphine 30mg/30ml IV PRN ×3 (04:57→17:02)
[2018-11-24 07:02] LABS: HEMATOCRIT 46.6 % (42.0-52.0); HEMOGLOBIN 15.2 G/DL (14.2-18.0); MEAN CORPUSCULAR VOLUME 104 FL (80-99); PLATELET COUNT 167 K/UL (150-450); RED CELL DISTRIBUTION WIDTH 13.2 % (11.6-14.8); WHITE BLOOD COUNT 7.2 K/UL (4.8-10.8)
[2018-11-24 07:23] LABS: ANION GAP 7 mmol/L (5-15); BLOOD UREA NITROGEN 16 mg/dL (7-18); CALCIUM 8.4 MG/DL (8.5-10.1); CARBON DIOXIDE 23 MMOL/L (21-32); CHLORIDE 111 MMOL/L (98-107); CREATININE 1.1 MG/DL (0.55-1.30); POTASSIUM 5.6 MMOL/L (3.5-5.1); SODIUM 141 MMOL/L (136-145)
[2018-11-24] MEDS: Narcotic Shift Volume MISC SCH ×2 (07:25→19:06)
[2018-11-24] MEDS: Albuterol/Ipratropium 3ml neb HHN PRN ×2 (07:57→12:55)
[2018-11-24 08:00] VITALS: BP 90/58
[2018-11-24] MEDS: levETIRAcetam 500mg/NS100ml 100 ML IVPB SCH (09:23)
--- NOTE | 2018-11-24 11:35 | Pulmonology Progress Note ---
Assessment/Plan Problems: (1) Acute respiratory failure (2) Acute encephalopathy (3) Metastatic 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 (4) Seizure disorder (5) Hepatitis C (6) Liver cirrhosis (7) Portal hypertension (8) Psychosis Assessment/Plan on Morphine drip loud rales symptomatic treatment on nasal cannula comfort care DNR and DNI lasix times one pt is moribund Subjective ROS Limited/Unobtainable: Yes Interval Events: on morphine Allergies: Coded Allergies: No Known Allergies (Verified , 08/24/12) Objective Last 24 Hour Vital Signs Date Time Temp Pulse Resp B/P (MAP) Pulse Ox O2 Delivery O2 Flow Rate FiO2 11/24/18 09:00 Non-Rebreather 10.0 11/24/18 08:08 79 26 95 Non-Rebreather 100 11/24/18 08:00 97.3 86 19 90/58 (69) 93 11/24/18 08:00 22 11/24/18 07:57 79 32 95 Non-Rebreather 15.0 100 11/24/18 07:56 75 32 95 Non-Rebreather 15.0 100 11/24/18 07:56 95 Non-Rebreather 15.0 100 11/24/18 05:27 98.9 11/24/18 04:13 22 11/24/18 04:00 98.9 69 17 124/83 (97) 94 11/24/18 00:00 24 11/23/18 23:48 97.6 18 112/70 (84) 90 11/23/18 21:00 Non-Rebreather 4.0 11/23/18 20:38 59 16 87 Non-Rebreather 15.0 100 11/23/18 20:28 57 16 90 Non-Rebreather 15.0 100 11/23/18 20:00 98.0 19 121/79 (93) 88 11/23/18 20:00 28 11/23/18 19:56 28 11/23/18 18:04 28 11/23/18 16:00 97.9 55 12 95/67 (76) 75 11/23/18 14:20 77 20 99 11/23/18 13:00 75 20 98 11/23/18 12:00 97.9 82 19 118/77 (91) 96 Intake and Output 6/11/19 6/12/19 18:59 06:59 Intake Total 775 ml 15 ml Balance 775 ml 15 ml IV Total 775 ml 15 ml # Voids 5 1 General Appearance: cachetic HEENT: normocephalic, atraumatic, PERRL Respiratory/Chest: crackles/rales Cardiovascular: normal peripheral pulses, normal rate Abdomen: normal bowel sounds, soft, non tender Genitourinary: normal external genitalia Neurologic/Psychiatric: edge stripper 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 normal Lymphatic: no neck adenopathy Laboratory Tests 11/24/18 05:40: White Blood Count 7.2, Red Blood Count 4.50L, Hemoglobin 15.2, Hematocrit 46.6, Mean Corpuscular Volume 104H, Mean Corpuscular Hemoglobin 33.7H, Mean Corpuscular Hemoglobin Concent 32.6, Red Cell Distribution Width 13.2, Platelet Count 167, Mean Platelet Volume 7.2, Neutrophils (%) (Auto) , Lymphocytes (%) ( Auto) , Monocytes (%) (Auto) , Eosinophils (%) (Auto) , Basophils (%) (Auto) , Differential Total Cells Counted 100, Neutrophils % (Manual) 82H, Lymphocytes % (Manual) 3L, Monocytes % (Manual) 14H, Eosinophils % (Manual) 0, Basophils % ( Manual) 0, Band Neutrophils 1, Platelet Estimate Adequate, Platelet Morphology Normal, Macrocytosis 1+, Sodium Level 141, Potassium Level 5.6H, Chloride Level 111H, Carbon Dioxide Level 23, Anion Gap 7, Blood Urea Nitrogen 16, Creatinine 1.1, Estimat Glomerular Filtration Rate , Glucose Level 125H, Calcium Level 8.4L Current Medications Medications (Trade) Dose Ordered Sig/Darinel Route PRN Reason Start Time Stop Time Status Last Admin Dose Admin Albuterol/ Ipratropium (Albuterol/ Ipratropium) 3 ml Q4H PRN HHN Shortness of Breath 11/23/18 15:52 11/28/18 15:51 11/24/18 07:57 Dextrose (Dextrose 50%) STAT PRN IV Hypoglycemia 11/22/18 22:00 12/20/18 21:59 Levetiracetam 100 ml @ 400 mls/hr Q12HR@1000,2200 IVPB 11/22/18 22:00 12/21/18 21:59 11/24/18 09:23 Lorazepam (Ativan 2mg/ml 1ml) 2 mg Q1H PRN IV seizures 11/22/18 22:00 11/27/18 21:59 11/23/18 08:59 Miscellaneous Medication (Narcotic Drip Rate Change) 1 ea DAILY PRN MISC per protocol 11/23/18 17:00 12/23/18 16:59 Miscellaneous Medication (Narcotic Shift Volume) 1 ea Q12H MISC 11/23/18 19:00 12/23/18 18:59 11/24/18 07:25 Morphine Sulfate 30 ml @ 5 mls/hr REHAB TECH Protocol PRN IV For Pain 11/23/18 18:00 11/25/18 17:59 11/24/18 10:58 Pradeep Saavedra MD Nov 24, 2018 11:35
[2018-11-24 12:00] VITALS: BP 88/55
--- NOTE | 2018-11-24 12:28 | Infectious Diseases Prog Note ---
Assessment/Plan Assessment/Plan 73 yo male with PMHx of CA with brain mets who was sent [facility] the ED from his [facility] for SOB and a witnessed tonic clonic seizure. Respiratory failure Likely has lung mets and effusions No signs of current sepsis CXR - 11/22/18 Mixed interstitial and alveolar infiltrates present bilaterally. Heart is enlarged. Accounting for differences in technique there is no significant change. No Fever No leukocytosis Cancer (Unknown primary) with mets to the brain Hepatitis C. Cirrhosis of the liver. Chronic obstructive pulmonary disease. Seizure disorder. Hx of Pericardial effusion. 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 Subjective Allergies: Coded Allergies: No Known Allergies (Verified , 08/24/12) Subjective Increased O2 today Afebrile Still no leukcoytosis Objective Vital Signs Last 24 Hour Vital Signs Date Time Temp Pulse Resp B/P (MAP) Pulse Ox O2 Delivery O2 Flow Rate FiO2 11/24/18 11:28 97.3 11/24/18 09:00 Non-Rebreather 10.0 11/24/18 08:08 79 26 95 Non-Rebreather 100 11/24/18 08:00 97.3 86 19 90/58 (69) 93 11/24/18 08:00 22 11/24/18 07:57 79 32 95 Non-Rebreather 15.0 100 11/24/18 07:56 75 32 95 Non-Rebreather 15.0 100 11/24/18 07:56 95 Non-Rebreather 15.0 100 11/24/18 04:13 22 11/24/18 04:00 98.9 69 17 124/83 (97) 94 11/24/18 00:00 24 11/23/18 23:48 97.6 18 112/70 (84) 90 11/23/18 21:00 Non-Rebreather 4.0 11/23/18 20:38 59 16 87 Non-Rebreather 15.0 100 11/23/18 20:28 57 16 90 Non-Rebreather 15.0 100 11/23/18 20:00 98.0 19 121/79 (93) 88 11/23/18 20:00 28 11/23/18 19:56 28 11/23/18 18:04 28 11/23/18 16:00 97.9 55 12 95/67 (76) 75 11/23/18 14:20 77 20 99 11/23/18 13:00 75 20 98 Height (Feet): 5 Height (Inches): 5.00 Weight (Pounds): 150 Objective Gen: On NC, Thin male HEENT: NCAT, MMM, EOMI LUNGS: Coarse B/L No W CARDS: RRR, S1, S2, No M ABD: Soft, NT, ND Laboratory Tests Test 11/24/18 05:40 White Blood Count 7.2 K/UL (4.8-10.8) Red Blood Count 4.50 M/UL (4.70-6.10) L Hemoglobin 15.2 G/DL (14.2-18.0) Hematocrit 46.6 % (42.0-52.0) Mean Corpuscular Volume 104 FL (80-99) H Mean Corpuscular Hemoglobin 33.7 PG (27.0-31.0) H Mean Corpuscular Hemoglobin Concent 32.6 G/DL (32.0-36.0) Red Cell Distribution Width 13.2 % (11.6-14.8) Platelet Count 167 K/UL (150-450) Mean Platelet Volume 7.2 FL (6.5-10.1) Neutrophils (%) (Auto) % (45.0-75.0) Lymphocytes (%) (Auto) % (20.0-45.0) Monocytes (%) (Auto) % (1.0-10.0) Eosinophils (%) (Auto) % (0.0-3.0) Basophils (%) (Auto) % (0.0-2.0) Differential Total Cells Counted 100 Neutrophils % (Manual) 82 % (45-75) H Lymphocytes % (Manual) 3 % (20-45) L Monocytes % (Manual) 14 % (1-10) H Eosinophils % (Manual) 0 % (0-3) Basophils % (Manual) 0 % (0-2) Band Neutrophils 1 % (0-8) Platelet Estimate Adequate Platelet Morphology Normal Macrocytosis 1+ Sodium Level 141 MMOL/L (136-145) Potassium Level 5.6 MMOL/L (3.5-5.1) H Chloride Level 111 MMOL/L (98-107) H Carbon Dioxide Level 23 MMOL/L (21-32) Anion Gap 7 mmol/L (5-15) Blood Urea Nitrogen 16 mg/dL (7-18) Creatinine 1.1 MG/DL (0.55-1.30) Estimat Glomerular Filtration Rate mL/min (>60) Glucose Level 125 MG/DL (74-106) H Calcium Level 8.4 MG/DL (8.5-10.1) L Current Medications Medications (Trade) Dose Ordered Sig/Darinel Route PRN Reason Start Time Stop Time Status Last Admin Dose Admin Albuterol/ Ipratropium (Albuterol/ Ipratropium) 3 ml Q4H PRN HHN Shortness of Breath 11/23/18 15:52 11/28/18 15:51 11/24/18 07:57 Dextrose (Dextrose 50%) STAT PRN IV Hypoglycemia 11/22/18 22:00 12/20/18 21:59 Furosemide (Lasix) 40 mg ONCE IV 11/24/18 11:45 11/24/18 13:00 11/24/18 11:48 Levetiracetam 100 ml @ 400 mls/hr Q12HR@1000,2200 IVPB 11/22/18 22:00 12/21/18 21:59 11/24/18 09:23 Lorazepam (Ativan 2mg/ml 1ml) 2 mg Q1H PRN IV seizures 11/22/18 22:00 11/27/18 21:59 11/23/18 08:59 Miscellaneous Medication (Narcotic Drip Rate Change) 1 ea DAILY PRN MISC per protocol 11/23/18 17:00 12/23/18 16:59 Miscellaneous Medication (Narcotic Shift Volume) 1 ea Q12H MISC 11/23/18 19:00 12/23/18 18:59 11/24/18 07:25 Morphine Sulfate 30 ml @ 5 mls/hr [employer] Protocol PRN IV For Pain 11/23/18 18:00 11/25/18 17:59 11/24/18 10:58 Jorge Luis Lee MD Nov 24, 2018 12:28
[2018-11-24 16:00] VITALS: BP 78/52
--- NOTE | 2018-11-24 19:18 | Internal Med Progress Note ---
Subjective Date of Service: Nov 24, 2018 Physician Name Aldo Ruiz Attending Physician Damaso Hunt MD Current Medications Medications (Trade) Dose Ordered Sig/Darinel Route PRN Reason Start Time Stop Time Status Last Admin Dose Admin Albuterol/ Ipratropium (Albuterol/ Ipratropium) 3 ml Q4H PRN HHN Shortness of Breath 11/23/18 15:52 11/28/18 15:51 11/24/18 12:55 Dextrose (Dextrose 50%) STAT PRN IV Hypoglycemia 11/22/18 22:00 12/20/18 21:59 Levetiracetam 100 ml @ 400 mls/hr Q12HR@1000,2200 IVPB 11/22/18 22:00 12/21/18 21:59 11/24/18 09:23 Lorazepam (Ativan 2mg/ml 1ml) 2 mg Q1H PRN IV seizures 11/22/18 22:00 11/27/18 21:59 11/23/18 08:59 Miscellaneous Medication (Narcotic Drip Rate Change) 1 ea DAILY PRN MISC per protocol 11/23/18 17:00 12/23/18 16:59 Miscellaneous Medication (Narcotic Shift Volume) 1 ea Q12H MISC 11/23/18 19:00 12/23/18 18:59 11/24/18 19:06 Morphine Sulfate 30 ml @ 5 mls/hr ABRASIVE MIXER Protocol PRN IV For Pain 11/23/18 18:00 11/25/18 17:59 11/24/18 17:02 Allergies: Coded Allergies: No Known Allergies (Verified , 08/24/12) ROS Limited/Unobtainable: Yes Subjective 73 YO M admitted with respiratory failure. Now pneumonia. Cover for Int Med- Dr Hunt.Labored breathing Objective Last Vital Signs Date Time Temp Pulse Resp B/P (MAP) Pulse Ox O2 Delivery O2 Flow Rate FiO2 11/24/18 17:32 96.4 11/24/18 16:01 15 11/24/18 16:00 77 78/52 (61) 90 11/24/18 13:06 Non-Rebreather 100 11/24/18 12:55 15.0 Laboratory Tests Test 11/24/18 05:40 White Blood Count 7.2 K/UL (4.8-10.8) Red Blood Count 4.50 M/UL (4.70-6.10) L Hemoglobin 15.2 G/DL (14.2-18.0) Hematocrit 46.6 % (42.0-52.0) Mean Corpuscular Volume 104 FL (80-99) H Mean Corpuscular Hemoglobin 33.7 PG (27.0-31.0) H Mean Corpuscular Hemoglobin Concent 32.6 G/DL (32.0-36.0) Red Cell Distribution Width 13.2 % (11.6-14.8) Platelet Count 167 K/UL (150-450) Mean Platelet Volume 7.2 FL (6.5-10.1) Neutrophils (%) (Auto) % (45.0-75.0) Lymphocytes (%) (Auto) % (20.0-45.0) Monocytes (%) (Auto) % (1.0-10.0) Eosinophils (%) (Auto) % (0.0-3.0) Basophils (%) (Auto) % (0.0-2.0) Differential Total Cells Counted 100 Neutrophils % (Manual) 82 % (45-75) H Lymphocytes % (Manual) 3 % (20-45) L Monocytes % (Manual) 14 % (1-10) H Eosinophils % (Manual) 0 % (0-3) Basophils % (Manual) 0 % (0-2) Band Neutrophils 1 % (0-8) Platelet Estimate Adequate Platelet Morphology Normal Macrocytosis 1+ Sodium Level 141 MMOL/L (136-145) Potassium Level 5.6 MMOL/L (3.5-5.1) H Chloride Level 111 MMOL/L (98-107) H Carbon Dioxide Level 23 MMOL/L (21-32) Anion Gap 7 mmol/L (5-15) Blood Urea Nitrogen 16 mg/dL (7-18) Creatinine 1.1 MG/DL (0.55-1.30) Estimat Glomerular Filtration Rate mL/min (>60) Glucose Level 125 MG/DL (74-106) H Calcium Level 8.4 MG/DL (8.5-10.1) L Intake and Output 11/23/18 11/24/18 18:59 06:59 Intake Total 775 ml 15 ml Balance 775 ml 15 ml IV Total 775 ml 15 ml # Voids 5 1 Objective PHYSICAL EXAMINATION: GENERAL: The patient is a well-developed and well-nourished white male, who is currently on full face BiPAP. HEENT: Eyes, pupils are equal and responsive to light and accommodation. Extraocular movements are intact. NECK: Supple without lymphadenopathy. CHEST: Nasal canula; Lungs with epiratory wheezes and rales bilaterally. Decreased breath sounds right base CARDIOVASCULAR: Regular rhythm and rate. S1 and S2 are normal without murmurs, rubs, or gallops. ABDOMEN: Soft, nontender, and nondistended. Positive bowel sounds. No evidence of hepatosplenomegaly. Currently, no rebound or guarding noted. EXTREMITIES: Negative for clubbing, cyanosis, or edema. RECTAL/GENITAL: Refused. NEUROLOGICALLY: Unable to assess secondary to the patient's mental status. Assessment/Plan Assessment/Plan ASSESSMENT: This is a 73-year-old white male. 1. Pneumonia. 2. Respiratory failure. 3. Breakthrough seizures. 4. Unknown cancer with brain metastases. 5. Hepatitis C. 6. Cirrhosis of the liver. 7. Chronic obstructive pulmonary disease. 8. Pericardial effusion 9. Labored breathing TREATMENT: 1. Pneumonia/respiratory failure. A Pulmonary consultation has been obtained with Dr. Pradeep Saavedra. The patient is tolerating nasal canula Follow recommendation of Pulmonary. 2. Seizure. Continue Keppra and Depakote as above. 3. Unknown cancer with brain metastases. 4. Hepatitis C. 5. Cirrhosis of the liver. 6. Chronic obstructive pulmonary disease. 7. Pericardial effusion. 8. Labored breathing on room air; Oxygen sats very low Aldo Ruiz MD Nov 24, 2018 19:18
[2018-11-24 20:00] VITALS: BP 151/86
--- NOTE | 2018-11-25 09:32 | Discharge Summary ---
Discharge Summary Discharge Summary _ DATE OF ADMISSION: 11/20/2018 DATE OF DISCHARGE: 11/24/2018 BRIEF SUMMARY: Patient is an unfortunate 73-year-old male, who presented with chief complaint of shortness of breath. Patient had history of cancer of unknown origin with metastatic lesions to the brain, seizure disorder, liver cirrhosis, hepatitis C, and COPD. He was a resident of [facility]. According to the staff, patient started to experience shortness of breath on 01/2019. He also had a witnessed seizure. Seizure lasted approximately 1 to 2 minutes. Seizure was described to be tonic-clonic in nature. He was then taken to [place] emergency room for evaluation. On evaluation at ED, patient was noted to have significant respiratory distress. He was somewhat hypotensive. He was started on IV fluids. He had an armband that stated DNR. He was started on BiPAP. Chest x-ray read by radiologist showed bilateral interstitial and airspace edema and possible left pleural effusion. Blood work showed lactic acid level of 5. He was admitted for respiratory failure and pneumonia. He was continued on BiPAP support. He was placed on seizure precautions. He was continued on Keppra and Depakote. He was n.p.o. He was given IV hydration. He was observed off antibiotics. There were no signs of active sepsis per ID. There was no fever, no leukocytosis. Patient presented with respiratory failure , likely due to lung mets and effusion. Blood culture did not isolate any growth. He was taken off BiPAP support. Swallow evaluation was done. Patient with silent aspiration risk and had mild to moderate or worsened oropharyngeal dysphagia. He was placed on strict aspiration precautions. He came in with multiple non-blanchable skin redness. He was given wound and skin care. Patient was cleared for discharge back to halfway and hospice care, however , patient was not accepted due to low O2 saturation. He was given nebulizer treatment. He was placed on nonrebreather mask. He was eventually placed on comfort measures and was started on morphine drip. He was given spot dose diuretic. Patient eventually . FINAL DIAGNOSES: Acute respiratory failure due to pneumonia Breakthrough seizure disorder Unknown CA with brain mets Acute encephalopathy Hepatitis C Cirrhosis of liver COPD History of pericardial effusion Stage I on sacral, bilateral trochanter, hip, and heels; right knee and bilateral malleolus, present on admission Comfort care DISPOSITION: Patient . I have been assigned to complete a discharge summary on this account, I was not involved with the patient's management. Marry Enrique NP Nov 25, 2018 09:32
== END 2018-11-24 20:15 | disposition expired | DRG 139 ==
LOC: EDBD 20:16 → EDBEDREQ 20:31 → EMR 21:14 → 2W 21:16 → EDBEDREQ 22:36 → 2W 11-21 05:35 → 4E 11-22 22:19
PROC: 5A09457 Assistance with Respiratory Ventilation, 24-96 Consecutive Hours, Continuous Positive Airway Pressure (ICD-10-PCS; principal; 2018-11-20)
DX: J18.9 Pneumonia, unspecified organism (principal); J96.00 Acute respiratory failure, unspecified whether with hypoxia or hypercapnia; G93.40 Encephalopathy, unspecified; L89.151 Pressure ulcer of sacral region, stage 1; L89.221 Pressure ulcer of left hip, stage 1; L89.211 Pressure ulcer of right hip, stage 1; C79.31 Secondary malignant neoplasm of brain; Z51.5 Encounter for palliative care; Z66 Do not resuscitate; L89.529 Pressure ulcer of left ankle, unspecified stage; K76.6 Portal hypertension; I31.3 Pericardial effusion (noninflammatory); C80.1 Malignant (primary) neoplasm, unspecified; G40.909 Epilepsy, unspecified, not intractable, without status epilepticus; K74.60 Unspecified cirrhosis of liver; J44.9 Chronic obstructive pulmonary disease, unspecified; B19.20 Unspecified viral hepatitis C without hepatic coma; L89.621 Pressure ulcer of left heel, stage 1; L89.611 Pressure ulcer of right heel, stage 1; L89.519 Pressure ulcer of right ankle, unspecified stage; L89.899 Pressure ulcer of other site, unspecified stage; F29 Unspecified psychosis not due to a substance or known physiological condition; D69.6 Thrombocytopenia, unspecified
CPT/HCPCS: 36415; 36600; 71045; 80048; 80053; 80299; 82550; 82553; 82803; 83605; 83735; 83880; 84100; 84484; 85007; 85025; 87040; 87081; 93005; 94640; 94660; 94664; 96360; 99291; J7620